=== PATIENT | male | born 1970 | race Caucasian/White ===

== ENCOUNTER → 2016-11-30 | Outpatient (REF) | payer MEDICAID | LOC: M SFHCPLAZ 13:31 | PROVIDERS: ATTEND Physician Assistant | DX: E11.9 Type 2 diabetes mellitus without complications (principal) ==

== ENCOUNTER 2019-03-29 17:02 | Emergency (ER) | payer OTHER, SELFPAY ==
[~2019-03-29] VITALS: Ht 193 cm; Wt 76.8 kg
[~2019-03-29 17:02] MED LIST: METF10004 PO
[2019-03-29 17:41] LABS: HEMATOCRIT 26.6 % (42.0-52.0); HEMOGLOBIN 8.1 g/dl (13.5-17.5); MEAN CORPUSCULAR HEMOGLOBIN 23.4 pg (27.0-33.0); MEAN CORPUSCULAR HGB CONC 30.5 g/dl (32.0-36.5); MEAN CORPUSCULAR VOLUME 76.9 fl (80.0-96.0); PLATELET COUNT, AUTOMATED 157 10^3/uL (150-450); RED BLOOD COUNT 3.46 10^6/uL (4.30-6.10); WHITE BLOOD COUNT 7.1 10^3/uL (4.0-10.0)
[2019-03-29 18:06] LABS: BLOOD UREA NITROGEN 15 MG/DL (7-18); CALCIUM LEVEL 7.6 MG/DL (8.5-10.1); CARBON DIOXIDE LEVEL 27 MEQ/L (21-32); CHLORIDE LEVEL 88 MEQ/L (98-107); GLOMERULAR FILTRATION RATE > 60.0 (>60); GLUCOSE, FASTING 549 MG/DL (70-100); POTASSIUM SERUM 3.9 MEQ/L (3.5-5.1); SODIUM LEVEL 125 MEQ/L (136-145)
[2019-03-29] MEDS ORDERED: NS 1,000 ML IV ONE ×3 (18:15→22:30)
[2019-03-29 18:28] LABS: ATYPICAL LYMPH 1 % (0-5); EOSINOPHILS 1 % (0-5); LYMPHOCYTES 7 % (16-52); MONOCYTES 13 % (0-8); NEUTROPHILS 76 % (35-75)
[2019-03-29] MEDS ORDERED: VANCOMYCIN HCL 1,000 MG, VIAL MATE ADAPTER 1 EACH in D5W 250 ML IV ONE ×2 (18:30→21:45)
[2019-03-29] MEDS ORDERED: HumuLIN R (REGULAR) INSULIN (NovoLIN R) **100U/ML** PER UNIT IV ONE (18:30)
[2019-03-29 18:31] LABS: DOHLE BODIES 1+; HYPOCHROMASIA 1+; PLATELET ESTIMATE NORMAL (NORMAL); TOXIC GRANULATION 1+
[2019-03-29] MEDS ORDERED: MORPHINE 4 MG/ML 1ML VIAL/SYRINGE (J2270) IV ONE (18:45)
[2019-03-29 18:52] LABS: ERYTHROCYTE SEDIMENTATION RATE 110 mm/hr (0-15)
[2019-03-29 18:55] LABS: ALBUMIN 1.2 GM/DL (3.2-5.2); ALT/SGPT 6 U/L (12-78); BILIRUBIN,DIRECT 0.6 MG/DL (0.0-0.2); BILIRUBIN,TOTAL 0.9 MG/DL (0.2-1.0); TOTAL PROTEIN 6.5 GM/DL (6.4-8.2)
--- NOTE | 2019-03-29 20:02 | REPVR ---
EXAM: US Duplex Left Lower Extremity Veins, Limited EXAM DATE/TIME: 03/29/2019 7:32 PM CLINICAL HISTORY: 48 years old, male; Pain; Leg, lower; Left; Additional info: Edema, R/O dvt TECHNIQUE: Imaging protocol: Real-time Duplex ultrasound of the Left Lower Extremity with 2-D thomas scale, color Doppler flow and spectral waveform analysis. Limited exam focused on the left lower extremity veins. COMPARISON: No relevant prior studies available. FINDINGS: Left deep veins: Occluded proximal and mid superficial femoral vein. Remaining veins in the deep system are patent. Left superficial veins: Unremarkable. Saphenofemoral junction is patent without thrombus. Soft tissues: Unremarkable. Other findings: Occluded proximal and mid superficial femoral vein. Remaining veins in the deep system are patent. IMPRESSION: DVT as described above. Electronically signed by: Angel Selby On 03/29/2019 20:02:36 PM
[2019-03-29 20:07] LABS: APPEARANCE, URINE CLEAR (CLEAR); BACTERIA, URINE AUTO NEGATIVE (NEGATIVE); BILIRUBIN, URINE AUTO NEGATIVE (NEGATIVE); BLOOD, URINE BLOOD 2+ (NEGATIVE); COLOR, URINE AMBER (YELLOW); GLUCOSE, URINE (UA) AUTO 3+ mg/dL (NEGATIVE); KETONE, URINE AUTO NEGATIVE (NEGATIVE); LEUKOCYTE ESTERASE, URINE AUTO NEGATIVE (NEGATIVE); MUCUS, URINE SMALL (NEGATIVE); NITRITE, URINE AUTO NEGATIVE (NEGATIVE); PROTEIN, URINE AUTO NEGATIVE (NEGATIVE); RBC, URINE AUTO 14 /HPF (0-3); SPECIFIC GRAVITY URINE AUTO 1.032 (1.002-1.035); SQUAMOUS EPITHELIAL CELL UR AU 0 /HPF (0-6); WBC, URINE AUTO 4 /HPF (0-3)
[2019-03-29] MEDS ORDERED: metroNIDAZOLE 500 MG in APPROPRIATE DILUENT 1 EA IV ONE (20:30)
[2019-03-29] MEDS ORDERED: ERTAPENEM SODIUM 1 GM in NS MINI-BAG PLUS 50 ML IV ONE (20:30)
[2019-03-29] MEDS ORDERED: LevoFLOXacin IV 750 MG in APPROPRIATE DILUENT 1 EA IV ONE (20:30)
[2019-03-29 20:33] LABS: VENOUS HCO3 21.4 MEQ/L (23.0-27.0); VENOUS O2 SATURATION 99.8 % (60.0-80.0); VENOUS PARTIAL PRESSURE CO2 30.8 mmHg (38.0-50.0); VENOUS PARTIAL PRESSURE O2 232.2 mmHg (30.0-50.0); VENOUS STANDARD HCO3 22.8 MEQ/L; VENOUS TOTAL CO2 22.4 MEQ/L (24.0-28.0)
[2019-03-29] MEDS ORDERED: ISOVUE-370 76% 100ML VIAL (Q9967) As Ordered ONE (20:38)
[2019-03-29] MEDS ORDERED: HEPARIN SOD (PORCINE) 5000 UNITS/ML VIAL SC SCH (21:00)
[2019-03-29] MEDS ORDERED: LEVEMIR (INSULIN DETEMIR) 1 UNITS/0.01ML SC SCH (21:00)
[2019-03-29] MEDS ORDERED: CLINDAMYCIN 900 MG in APPROPRIATE DILUENT 1 EA IV ONE (21:15)
[2019-03-29] MEDS ORDERED: VANCOMYCIN HCL 500 MG in D5W MINI-BAG PLUS 100 ML IV ONE (21:45)
[2019-03-29] MEDS ORDERED: GLUCOSE 4 GM CHEW TABLET PO PRN (22:00)
[2019-03-29] MEDS ORDERED: DEXTROSE 50% 50 ML SYRINGE IV PRN (22:00)
[2019-03-29] MEDS ORDERED: GLUCAGON FOR INJ 1 MG VIAL (J1610) SC PRN (22:00)
[2019-03-29] MEDS ORDERED: HumaLOG INSULIN (NovoLOG) PER UNIT SC SCH (22:00)
[2019-03-29] MEDS ORDERED: LR 1,000 ML IV SCH (22:00)
[2019-03-29] MEDS ORDERED: LR 1,000 ML IV ONE (22:00)
--- NOTE | 2019-03-29 22:00 | REPVR ---
EXAM: CT Angiography Chest With Contrast EXAM DATE/TIME: 03/29/2019 8:49 PM CLINICAL HISTORY: 48 years old, male; Signs and symptoms; Other: Dvt; Additional info: Dvt lle, tachycardia TECHNIQUE: Imaging protocol: Axial computed tomographic angiography images of the chest with intravenous contrast using CT angiography protocol. Coronal and sagittal reformatted images were created and reviewed. 3D rendering: MIP reconstructed images were created and reviewed. Radiation optimization: All CT scans at this facility use at least one of these dose optimization techniques: automated exposure control; mA and/or kV adjustment per patient size (includes targeted exams where dose is matched to clinical indication); or iterative reconstruction. Contrast material: ISOVUE 370; Contrast volume: 100 ml; Contrast route: IV; COMPARISON: CT ANGIO CHEST 08/27/2018 11:43 PM FINDINGS: Pulmonary arteries: There are low-density filling defects within right lower lobe and left lower lobe pulmonary arteries consistent with emboli. Aorta: Normal. No aortic aneurysm. No aortic dissection. Lungs: Small patchy consolidation within the peripheral aspect of the posterior left lower lobe, likely small pulmonary infarct. The lungs are otherwise clear. Pleural space: No pleural effusion or pneumothorax. Heart: No CT scan evidence of right heart dysfunction. Lymph nodes: Unremarkable. No enlarged lymph nodes. Bones/joints: Mild degenerative spondylosis and DISH of the thoracic spine. Soft tissues: Unremarkable. IMPRESSION: 1. Bilateral lower lobe pulmonary emboli. 2. Small area of patchy consolidation in the posterior left lower lobe, likely pulmonary infarct. Electronically signed by: Carlo Garcia On 03/29/2019 21:59:32 PM
--- NOTE | 2019-03-29 22:25 | REPVR ---
EXAM: CT Abdomen and Pelvis With Contrast EXAM DATE/TIME: 03/29/2019 8:49 PM CLINICAL HISTORY: 48 years old, male; Signs and symptoms; Other: Anemia, blood; Additional info: Heme pos stool, anemia TECHNIQUE: Imaging protocol: Axial computed tomography images of the abdomen and pelvis with intravenous contrast. Coronal and sagittal reformatted images were created and reviewed. Radiation optimization: All CT scans at this facility use at least one of these dose optimization techniques: automated exposure control; mA and/or kV adjustment per patient size (includes targeted exams where dose is matched to clinical indication); or iterative reconstruction. Contrast material: ISOVUE 370; Contrast volume: 100 ml; Contrast route: IV; COMPARISON: No relevant prior studies available. FINDINGS: Lungs: Bilateral lower lobe pulmonary emboli. Mediastinum: There is circumferential low-density wall thickening of the distal esophagus. Differential diagnosis includes esophagitis, as well as esophageal neoplasm. There is an 8 mm diameter left paraesophageal lymph node on axial image 12 of series 501. ABDOMEN: Liver: Unremarkable. No mass. Gallbladder and bile ducts: Unremarkable. No calcified stones. No ductal dilation. Pancreas: Unremarkable. No ductal dilation. Spleen: Unremarkable. No splenomegaly. Adrenals: Normal. No mass. Kidneys and ureters: Unremarkable. No stones. No hydronephrosis. Stomach and bowel: There is a large fecal load within a moderately distended ascending, transverse, and descending colon. The stomach and small bowel are unremarkable. No bowel obstruction is identified. No mucosal thickening or mass is identified. Appendix: No evidence of appendicitis. PELVIS: Bladder: Unremarkable as visualized. Reproductive: Unremarkable as visualized. ABDOMEN and PELVIS: Intraperitoneal space: Unremarkable. No free air. No significant fluid collection. Bones/joints: Degenerative spondylosis of the lower thoracic and lumbar spine. No bone destruction or suspicious bone lesion. Soft tissues: There is gas within the soft tissues of the posterior left proximal thigh and left buttock tracking within intramuscular tissue. These findings raise the concern for necrotizing fasciitis. Surgical consultation is recommended. Vasculature: Swelling and decreased attenuation within the left femoral and external iliac vein suspicious for deep venous thrombosis. Lymph nodes: There are mildly enlarged left inguinal external iliac chain lymph nodes. IMPRESSION: 1. Findings suspicious for DVT of the left femoral and left external iliac veins. 2. Bilateral pulmonary emboli. 3. Circumferential wall thickening of the distal esophagus. Differential diagnosis includes esophagitis and esophageal neoplasm. 4. Gas tracking within the intramuscular tissues of the posterior left proximal thigh and left buttock suspicious for necrotizing fasciitis. Surgical consultation is recommended. Electronically signed by: Carlo Garcia On 03/29/2019 22:24:47 PM
--- NOTE | 2019-03-29 22:40 | REPVR ---
EXAM: CT Left Lower Extremity Without Contrast, Tibia Fibula EXAM DATE/TIME: 03/29/2019 9:18 PM CLINICAL HISTORY: 48 years old, male; Condition or disease; Other: Wound; Additional info: Without contrast, infection TECHNIQUE: Imaging protocol: CT of the Left lower extremity without contrast was performed. Exam focused on the tibia and fibula. Coronal and sagittal reformatted images were created and reviewed. Radiation optimization: All CT scans at this facility use at least one of these dose optimization techniques: automated exposure control; mA and/or kV adjustment per patient size (includes targeted exams where dose is matched to clinical indication); or iterative reconstruction. COMPARISON: No relevant prior studies available. FINDINGS: Bones/joints: No eagle bone destruction or fracture seen. Small areas of mild periostitis within the proximal and distal tibia may be secondary to infectious periostitis as well as reactive to the adjacent soft tissue inflammatory process. Soft tissues: There is extensive swelling and fluid density reticulation throughout the subcutaneous tissues of the left distal thigh, calf, ankle and hindfoot consistent with cellulitis. There is extensive gas within the soft tissues of the distal thigh, calf, ankle and hindfoot consistent with necrotizing fasciitis. There is a collection of fluid and gas within the deep portion of the calf, anterior to the gastrocnemius muscles. This collection measures approximately 4 cm transverse by 2 cm AP by 14 cm long and is consistent with an abscess. This appears to communicate with soft tissue gas collections within the superficial tissues at the lateral aspect of the lower leg. IMPRESSION: 1. Diffuse cellulitis and findings consistent with diffuse necrotizing fasciitis of the left distal thigh, calf, ankle and hindfoot. 2. Deep space collection of gas and fluid within the posterior calf measuring approximately 14 cm x 4 cm x 1.9 cm deep to the gastrocnemius muscles consistent with abscess. Electronically signed by: Carlo Garcia On 03/29/2019 22:40:12 PM
--- NOTE | 2019-03-29 22:53 | REPVR ---
EXAM: CT Left Lower Extremity Without Contrast, Foot EXAM DATE/TIME: 03/29/2019 9:18 PM CLINICAL HISTORY: 48 years old, male; Condition or disease; Other: Persistent wound; Additional info: Without contrast TECHNIQUE: Imaging protocol: CT of the Left lower extremity without contrast was performed. Exam focused on the foot. Coronal and sagittal reformatted images were created and reviewed. Radiation optimization: All CT scans at this facility use at least one of these dose optimization techniques: automated exposure control; mA and/or kV adjustment per patient size (includes targeted exams where dose is matched to clinical indication); or iterative reconstruction. COMPARISON: CR Foot, complete LEFT 03/29/2019 7:07 PM FINDINGS: Bones/joints: There is erosion and partial destruction of the great toe metatarsal head, great toe proximal phalanx and great toe distal phalanx base consistent with osteomyelitis. There is extensive periostitis throughout the great toe metatarsal. There is erosion of the cuboid and first cuneiform bone, consistent with osteomyelitis. There is gas within the cuneiform bones and cuboid. There is erosion of the anterior process of the calcaneus. There is periostitis of the distal tibia and fibula, which may be secondary to osteomyelitis, as well as reactive to adjacent soft tissue inflammatory process. Soft tissues: There is diffuse swelling and fluid density throughout the foot and ankle consistent with cellulitis. There is extensive soft tissue gas throughout the foot and ankle consistent with necrotizing fasciitis. No drainable collection is identified. IMPRESSION: 1. Findings consistent with extensive cellulitis of the left ankle and foot. 2. Findings consistent with extensive necrotizing fasciitis of the left ankle and foot. 3. Osteomyelitis involving the great toe, cuneiform bones, cuboid, and calcaneus. Electronically signed by: Carlo Garcia On 03/29/2019 22:52:49 PM
[2019-03-29] MEDS ORDERED: HEPARIN DRIP 25,000 UNITS in APPROPRIATE DILUENT 1 EA IV SCH (23:02)
[2019-03-29] MEDS ORDERED: HEPARIN SOD (PORCINE) 5000 UNITS/ML VIAL IV PRN (23:15)
--- NOTE | 2019-03-29 23:30 | CR.PDOC ---
General Date of Consultation: March 29, 2019 Consultation REASON FOR CONSULTATION/CHIEF COMPLAINT: Diabetic foot infection; Necrotizing Fascitis of Whole left leg from foot to the thigh with underlying osteomyelitis of Left Foot, Bilateral PE, Left Leg DVT, Uncontrolled DM without DKA HISTORY OF PRESENT ILLNESS: Mr. Yi is a 48 years old man with DM who has no PCP and doesn't take any meds for DM. Pt is a poor historian and it is not clear how this started but he is presenting to ER with extremely painful left foot that is necrotized in a large area of left foot and spots of necrosis on the leg below knee, with extensive areas of skin peeling; the foot and leg are swollen and red, up to the knee. He is afebrile. BP is soft; he has sinus tachycardia at the rate of 110-120/min. BG >500; no acidosis. Normal anion gap. CT leg: Extensive necrotizing fascitis of the left left from foot to the thigh CTA Chest: Bilateral lower lobe PE US: Left proximal and mid superficial femoral vein DVT with occlusion Pt is allergic to PCN but cannot provide details. ALLERGIES: Please see below. HOME MEDICATIONS: Please see below. PAST MEDICAL HISTORY: Uncontrolled DM, likely insulin-dependent PAST SURGICAL HISTORY: unable to obtain FAMILY HISTORY: UNable to obtain REVIEW OF SYSTEMS: CONSTITUTIONAL: alert; generalized weakness HEENT: normal eyes CARDIOVASCULAR: no chest pain or SOB RESPIRATORY: no cough GENITOURINARY: no dysuria MUSCULOSKELETAL: left foot and leg pain GASTROINTESTINAL: no abd pain SKIN: as described above in HPI PSYCHIATRIC: normal mood PHYSICAL EXAMINATION: VITAL SIGNS: Please see below. GENERAL APPEARANCE: A, Ox3, NAD HEENT: PEERLA RESPIRATORY: CTA b/l CARDIOVASCULAR: Regular rate and rhythm; tachycardia ABDOMEN: Soft , NT EXTREMITIES: as described above in HPI. NEUROLOGICAL: no focal deficits PSYCHIATRIC: normal mood LABORATORY DATA: Please see below. ASSESSMENT/PLAN: 1. Extensive Necrotizing Fascitis of the Left Leg - IV Vanco, Levaquin, Flagyl and Clindamycin; ID consult not available; discussed with [employer] Dr. Palacios. - Fluid Boluses; then maintenance rate; Vasopressor if hypotensive - Blood, Wound C/S has been sent - Pt should be transferred out of ER to higher level of care for surgical care. Podiatry, Vascular and General Surgery have been consulted from ER. 2. B/L PE; Left leg DVT - Heparin drip without bolus in anticipation for surgery for above reason. 3. Uncontrolled DM - Low dose Levemir 10 units now because pt is NPO; SSI Thank you for allowing me to participate in the care of Mr. Yi. Critical Care time: 45 min. Vital Signs/I&O Vital Signs Date Time Temp Pulse Resp B/P (MAP) Pulse Ox O2 Delivery O2 Flow Rate FiO2 03/29/19 21:47 133 98 03/29/19 21:45 96/50 (65) 03/29/19 21:43 20 03/29/19 17:18 98.1 Room Air Laboratory Data Labs 24H Laboratory Tests 2 03/29/19 17:26: Lactic Acid Level 4.1*H 03/29/19 17:27: Nucleated Red Blood Cells % (auto) 0.0, Neutrophils 76H, Band Neutrophils 2, Lymphocytes (Manual) 7L, Monocytes (Manual) 13H, Eosinophils (Manual) 1, Atypical Lymphocytes 1, Toxic Granulation 1+, Dohle Bodies 1+, Platelet Estimate NORMAL, Hypochromasia 1+, Erythrocyte Sedimentation Rate 110H, Anion Gap 10, Glomerular Filtration Rate > 60.0, Calcium Level 7.6L, Aspartate Amino Transf (AST/SGOT) 13, Alanine Aminotransferase (ALT/SGPT) 6L, Alkaline Phosphatase 125H, Total Bilirubin 0.9, Direct Bilirubin 0.6H, C-Reactive Protein, Quantitative 20.50H, Total Protein 6.5, Albumin 1.2L, Albumin/Globulin Ratio 0.23L 03/29/19 19:52: Urine Appearance CLEAR, Urine Color FELISA, Urine pH 6.0, Urine Specific [place] 1.032, Urine Protein NEGATIVE, Urine Glucose (UA) 3+H, Urine Ketones NEGATIVE, Urine Urobilinogen 4.0H, Urine Bilirubin NEGATIVE, Urine Leukocyte Esterase NEGATIVE, Urine Blood 2+H, Urine Nitrite NEGATIVE, Urine WBC (Auto) 4H, Urine RBC (Auto) 14H, Urine Hyaline Casts (Auto) 0, Urine Bacteria (Auto) NEGATIVE, Urine Squamous Epithelial Cells 0, Urine Mucus (Auto) SMALL, Urine Sperm (Auto) , Blood Gas Bicarbonate Standard 22.8, Venous Blood pH 7.460H, Venous Blood Partial Pressure CO2 30.8L, Venous Blood Partial Pressure O2 232.2H, Venous Blood Total Carbon Dioxide 22.4L, Venous Blood HCO3 21.4L, Venous Blood Oxygen Saturation 99.8H, Venous Blood Base Excess -2.0 03/29/19 22:27: Bedside Glucose (Misc Panel) 366H 03/29/19 22:51: CBC/BMP Laboratory Tests 03/29/19 17:27 Red Blood Count 3.46 L, Mean Corpuscular Volume 76.9 L, Mean Corpuscular Hemoglobin 23.4 L, Mean Corpuscular Hemoglobin Concent 30.5 L, Red Cell Distribution Width 15.2 H Microbiology Microbiology 03/29/19 Blood Culture, Received Pending 03/29/19 Blood Culture, Received Pending 03/29/19 Gram Stain, Received Pending 03/29/19 Wound Culture, Received Pending Allergies Coded Allergies: Penicillins (Verified Allergy, Unknown, UNKNOWN CHILDHOOD REACTION, 03/29/19) Home Medications No Active Prescriptions or Reported Meds MARISOL JENSEN MD March 29, 2019 23:30
[2019-03-30] MEDS ORDERED: HEPARIN DRIP 25,000 UNITS in APPROPRIATE DILUENT 1 EA IV SCH ×2 (00:15→00:52)
[2019-03-30] MEDS ORDERED: ACETAMINOPHEN 325 MG TAB PO ONE (01:00)
[2019-03-30] MEDS ORDERED: VANCOMYCIN HCL 1,000 MG, VIAL MATE ADAPTER 1 EACH in D5W 250 ML IV SCH (02:00)
[2019-03-30] MEDS ORDERED: NS 1,000 ML IV ONE (02:15)
[2019-03-30] MEDS ORDERED: NOREPINEPHRINE BITARTRATE 8 MG in D5W 492 ML IV SCH ×2 (02:15→02:23)
[2019-03-30 02:45] VITALS: BP 88/51
[2019-03-30] MEDS ORDERED: metroNIDAZOLE 500 MG in APPROPRIATE DILUENT 1 EA IV SCH (03:00)
[2019-03-30] MEDS ORDERED: CLINDAMYCIN 900 MG in APPROPRIATE DILUENT 1 EA IV SCH (08:00)
--- NOTE | 2019-03-30 09:04 | REP ---
HISTORY: Foot pain with crepitus. Four views were obtained. COMPARISON: There are no priors for comparison. There is extensive soft tissue swelling and subcutaneous emphysema seen throughout the foot. There is lysis of nearly all of the proximal phalanx of the first digit along with lysis of the head of the first metatarsal and components of the base of the distal phalanx of the first digit. Secondary to the extensive subcutaneous emphysema, other small focal areas of bone destruction could be obscured. IMPRESSION: Findings consistent with advanced infection with inflammatory process likely osteomyelitis with or without concomitant secondary soft tissue infection. This needs to be correlated clinically with followup. Electronically Signed by Carlos Andrews DO 03/30/2019 09:13 A
--- NOTE | 2019-03-30 20:41 | IPN ---
DATE: 03/29/2019 TIME: Approximately 9 p.m. CHIEF COMPLAINT: Patient seen for evaluation of an infected left lower extremity with remarkably swollen left foot and leg. Patient states he did not have insurance so had a foot infection for at least 2 weeks. Patient is a poor historian. He states that he presented to the emergency room for difficulty breathing and infection in his foot. He is seen on consultation. PAST MEDICATIONS: Patient has stopped taking all of his medications. ALLERGIES: PENICILLIN PAST MEDICAL HISTORY: Not obtained, poor historian. PAST SURGICAL HISTORY: Patient is a poor historian. PHYSICAL EXAMINATION: Reveals an alert, 48-year-old male, states that he has had an infection for at least 2 weeks on his left foot which has been draining and he has noticed increased swelling of his leg and had difficulty breathing. Evaluation of his foot reveals a draining ulcer in the distal tip of the left big toe draining a purulent material. There is necrosis of the 4th and 5th toe extending on the lateral surface up to the 5th ray. The calf is markedly swollen. Swelling of the posterior calf with crepitation of that area. There are several black necrotic areas on the anterior leg. Due to swelling, difficult to palpate the patient's pedal pulses on the left side. X-rays were reviewed revealing considerable swelling throughout the entire soft tissue margin. There is gas noted on the medial and lateral sides of the patient's leg. The proximal phalanx has considerable osteolysis as well as the entire base of the distal phalanx. Cystic changes are noted of the head of the 1st metatarsal. Lower CT scan reveals gas in the posterior calf measuring 14 cm x 4 cm x 1.9 cm in depth, deep to the gastrocnemius muscle. Patient had an arteriogram CT ordered which reveals pulmonary embolus (PE) of the lower lobes bilateral. ASSESSMENT: Severe infection left lower leg with pulmonary embolus (PE). PLAN: Discussed with the patient this is out of my scope. Patient will probably need extensive surgery, possible below-knee (BK) amputation of the left extremity.
--- NOTE | 2019-03-30 21:24 | ECGEPIP ---
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 Order Number: [id number] Reading MD: Ayesha Mancia Measurements Intervals [place] Rate: 118 P: 47 TX: 154 QRS: 8 QRSD: 100 T: 72 QT: 290 QTc: 406 Interpretive Statements SINUS TACHYCARDIA POSSIBLE LEFT ATRIAL ENLARGEMENT NONSPECIFIC ST & T-WAVE ABNORMALITY ABNORMAL RHYTHM ECG BASELINE ARTIFACT LIMITS INTERPRETATION INCREASED RATE 08/27/18 Electronically Signed On 03-30-2019 21:24:23 EDT by Ayesha Mancia
[2019-03-30] MEDS ORDERED: LevoFLOXacin IV 750 MG in APPROPRIATE DILUENT 1 EA IV SCH (22:00)
== END 2019-03-30 02:50 | disposition short-term general hospital (02) ==
LOC: MERGE 17:02 → M ED 17:02 → EDBD 17:02 → M ED INP 21:43 → UNDOADMIN 21:43 → M ED 03-30 02:50
DX: L03.116 Cellulitis of left lower limb (principal); L02.416 Cutaneous abscess of left lower limb; M72.6 Necrotizing fasciitis; I26.99 Other pulmonary embolism without acute cor pulmonale; I82.412 Acute embolism and thrombosis of left femoral vein; M86.172 Other acute osteomyelitis, left ankle and foot; E11.65 Type 2 diabetes mellitus with hyperglycemia; E11.622 Type 2 diabetes mellitus with other skin ulcer; L97.823 Non-pressure chronic ulcer of other part of left lower leg with necrosis of muscle; R00.0 Tachycardia, unspecified; J45.909 Unspecified asthma, uncomplicated; Z88.0 Allergy status to penicillin
CPT/HCPCS: 36415; 71275; 73630; 73700; 74177; 80048; 80076; 81001; 82803; 83605; 85025; 85652; 85730; 86140; 87040; 87070; 87077; 87186; 87205; 93005; 93971; 96365; 96366; 96368; 96372; 96375; 99285; J1956; J2270; J3370; Q9967

== ENCOUNTER 2019-04-11 11:22 | Inpatient (IN) | payer BC, OTHER ==
[~2019-04-11] VITALS: Ht 193 cm; Wt 88.5 kg
[2019-04-14 15:50] VITALS: BP 130/75
[2019-04-14] MEDS ORDERED: PANT40TA3 PO (15:58)
[2019-04-14] MEDS ORDERED: ZOSY3INJ2 IV (15:58)
[2019-04-14] MEDS ORDERED: METO25TA4 PO (15:58)
[2019-04-14] MEDS ORDERED: SIME40TA PO (15:58)
[2019-04-14] MEDS ORDERED: LANTINJ4 SC (15:58)
[2019-04-14] MEDS ORDERED: ELIQ5TAB PO (15:58)
[2019-04-14] MEDS ORDERED: TRAM50TA2 PO (15:58)
[2019-04-14] MEDS ORDERED: FERR1TAB8 PO (15:58)
[2019-04-14] MEDS ORDERED: SENN8.6T28 PO (15:58)
[2019-04-14] MEDS ORDERED: APAP325T4 PO (15:58)
[2019-04-14] MEDS ORDERED: INSUHUMDS SC (15:58)
[2019-04-14] MEDS ORDERED: GABA-843 PO (15:58)
[2019-04-14] MEDS ORDERED: MAALOX 30 ML SUSP *UDC PO PRN (16:30)
[2019-04-14] MEDS ORDERED: ONDANSETRON 4MG/2ML VIAL (J2405) IM PRN (16:30)
[2019-04-14] MEDS ORDERED: BISACODYL 10 MG SUPP PR PRN (16:30)
[2019-04-14] MEDS ORDERED: MOM 30ML SUSPENSION UDC PO PRN (16:30)
[2019-04-14] MEDS ORDERED: GLUCAGON FOR INJ 1 MG VIAL (J1610) SC PRN (16:45)
[2019-04-14] MEDS ORDERED: DEXTROSE 50% 50 ML SYRINGE IV PRN (16:45)
[2019-04-14] MEDS ORDERED: SIMETHICONE 80 MG CHEW TAB PO PRN (16:45)
[2019-04-14] MEDS ORDERED: GLUCOSE 4 GM CHEW TABLET PO PRN (16:45)
[2019-04-14] MEDS: HumaLOG INSULIN (NovoLOG) PER UNIT SC SCH ×2 (17:28→20:52)
[2019-04-14] MEDS: SODIUM CHLORIDE 0.9% INJ 10 ML SYR IV SCH (17:54)
[2019-04-14] MEDS: PIPERACILLIN/TAZOBACTAM SOD 3.375 GM in D5W MINI-BAG PLUS 50 ML IV SCH (17:55)
[2019-04-14] MEDS: SODIUM CHLORIDE 0.9% INJ 10 ML SYR IV PRN (17:58)
--- NOTE | 2019-04-14 18:26 | CR.PDOC ---
General Date of Consultation: Apr 14, 2019 Referring Provider: ALEKSEY MUÑOZ MD Attending Physician: SHERICE CORCORAN MD Consultation REASON FOR CONSULTATION/CHIEF COMPLAINT: Medical Management HISTORY OF PRESENT ILLNESS: Patient is a 48-year-old male, past medical history significant for diabetes mellitus, poorly controlled, recent left AKA transferred back from [facility] to this facility after treatment of sepsis, necrotizing fasciitis, DVT in left common femoral vein, bilateral lower lobe PE and anemia. On presentation to that facility was septic from necrotizing fascitis . CT of his left lower extremity should necrotizing fasciitis to left eye, ankle, health, hindfoot with deep space collection of gas and fluid. Review of medical records state. He was initially started on vancomycin, Zosyn, clindamycin. Vascular surgery was consulted and performed a BKA. Once patient was stabilized, he proceeded with an AKA. Wound cultures were positive for Enterococcus faecalis and avium. Antibiotics were deescalated and currently continued only on Zosyn to complete therapy in 4 days for a total of 2 weeks. On evaluation of patient he has no complaints. He denies chest pain, SOB, weakness, chills fever or any other concerns ALLERGIES: Please see below. HOME MEDICATIONS: Please see below. PAST MEDICAL HISTORY: 1. Diabetes Mellitus 2. Anemia PAST SURGICAL HISTORY: 1. Left BKA 2. Left AKA FAMILY HISTORY: SOCIAL HISTORY: Employment:Disabled Tobacco use:denies ETOH: Denies Illicit drug use: denies IV drug use: Denies REVIEW OF SYSTEMS:A pertinent 10 point review of systems was completed, negative except as stated in the HPI PHYSICAL EXAMINATION: GENERAL: NAD SKIN : dry HEENT: Atraumatic, normocephalic, PERRL, moist mucous membrane CARDIOVASCULAR: Regular rate and rhythm, S1S2, no JVD, cold right foot, pulses not palpable RESP: CTAB, no accessory muscle use noted ABDOMEN: BS+ non distended non tender MS: left AKA NEURO: Alert and oriented x 3, CN2-12 grossly intact PSYCH: flat affect. LABORATORY DATA: Please see below. ASSESSMENT/PLAN: Necrotizing Fascitis -involving left lower extremity -S/P left BKA, then left AKA -S/P PICC on Zosyn till 04/16/19 -continue to monitor for signs and symptoms of infectious process. Diabetes mellitus -Medical non adherence -patient states he was without insurance for over a year and in that time was not treating/monitoring diabetes -finger stick checks prior to meals and at bedtime -continue Lantus 62 units at bedtime -diabetic diet -check HgbA1c Anemia -S/P transfusion multiple units PRBC at other facility -monitor hemoglobin here -stool for occult blood was also positive at that facility with consideration for GI consult if Hgb continued to drop -Continued on Eliquis for recent PE/DVT Left common Femoral DVT/PE -provoked likely by infection and possible PAD/PVD -S/P IVC placement -continue Eliquis Vital Signs/I&O Vital Signs Date Time Temp Pulse Resp B/P (MAP) Pulse Ox O2 Delivery O2 Flow Rate FiO2 04/14/19 15:50 98.7 119 18 130/75 (93) Laboratory Data Labs 24H Laboratory Tests 2 04/14/19 17:06: Bedside Glucose (Misc Panel) 89 Allergies Coded Allergies: Penicillins (Verified Allergy, Mild, UNKNOWN CHILDHOOD REACTION, 04/14/19) HAS BEEN RECEIVING ZOSYN FOR AN EXTENDED INTERVAL WITH NO ISSUES; THEREFORE, NO LONGER A PCN ALLERGY CONCERN 04/14/19 Home Medications Scheduled Acetaminophen (Acetaminophen) 325 Mg Tablet, 975 MG PO TID, (Reported) Apixaban (Eliquis) 5 Mg Tablet, 5 MG PO BID, (Reported) Ferrous Sulfate (Ferrous Sulfate) 325 Mg Tablet, 325 MG PO DAILY, (Reported) Gabapentin (Gabapentin) 300 Mg Capsule, 300 MG PO TID, (Reported) Insulin Glargine,Hum.rec.anlog (Lantus Solostar) 100 Unit/1 Ml Insuln.pen, 62 UNITS SC QHS, (Reported) Insulin Human Lispro (Humalog) 100 Unit/1 Ml Vial, 1 DOSE SC AC, (Reported) PER SLIDING SCALE Metoprolol Tartrate (Metoprolol Tartrate) 25 Mg Tablet, 12.5 MG PO BID, (Reported) Pantoprazole Sodium (Pantoprazole Sodium) 40 Mg Tablet.dr, 40 MG PO DAILY, (Reported) Piperacillin Sodium/Tazobactam (Zosyn 3.375 Gram Vial) 3.375 Gm Vial, 3.375 GM IV Q8H, (Reported) END DATE 04/18/19 Scheduled PRN Sennosides (Senna) 8.6 Mg Tablet, 2 TAB PO QHS PRN for CONSTIPATION, (Reported) Simethicone (Simethicone) 80 Mg Tab.chew, 80 MG PO Q6H PRN for GAS PAIN, (Reported) Tramadol HCl (Tramadol HCl) 50 Mg Tablet, 50 MG PO Q6H PRN for PAIN, (Reported) HEYDI SUE CLOTH BEAMER Apr 14, 2019 18:26
[2019-04-14 18:27] LABS: BASO # 0.1 10^3/uL (0.0-0.2); BASO % 0.8 % (0.0-1.0); EOS # 0.1 10^3/uL (0.0-0.50); EOS % 2.2 % (0.0-3.0); HEMATOCRIT 26.8 % (42.0-52.0); HEMOGLOBIN 8.6 g/dl (13.5-17.5); LYMPH # 1.2 10^3/uL (1.5-4.5); MEAN CORPUSCULAR HEMOGLOBIN 28.9 pg (27.0-33.0); MEAN CORPUSCULAR HGB CONC 32.1 g/dl (32.0-36.5); MEAN CORPUSCULAR VOLUME 89.9 fl (80.0-96.0); MONO # 0.5 10^3/uL (0.0-0.8); MONO % 7.8 % (0.0-5.0); NEUTROPHILS # 4.1 10^3/uL (1.8-7.7); NEUTROPHILS % 68.9 % (36.0-66.0); PLATELET COUNT, AUTOMATED 383 10^3/uL (150-450); RED BLOOD COUNT 2.98 10^6/uL (4.30-6.10); WHITE BLOOD COUNT 5.9 10^3/uL (4.0-10.0)
[2019-04-14 18:58] LABS: HEMOGLOBIN A1c 7.9 %
[2019-04-14 19:11] LABS: ALBUMIN 1.9 GM/DL (3.2-5.2); ALT/SGPT 22 U/L (12-78); BILIRUBIN,TOTAL 0.2 MG/DL (0.2-1.0); BLOOD UREA NITROGEN 22 MG/DL (7-18); CALCIUM LEVEL 8.4 MG/DL (8.5-10.1); CARBON DIOXIDE LEVEL 31 MEQ/L (21-32); CHLORIDE LEVEL 99 MEQ/L (98-107); CREATININE FOR GFR 0.61 MG/DL (0.70-1.30); GLOMERULAR FILTRATION RATE > 60.0 (>60); GLUCOSE, FASTING 98 MG/DL (70-100); POTASSIUM SERUM 4.7 MEQ/L (3.5-5.1); SODIUM LEVEL 136 MEQ/L (136-145); TOTAL PROTEIN 7.2 GM/DL (6.4-8.2)
[2019-04-14 20:00] VITALS: BP 124/73
[2019-04-14] MEDS: APIXABAN 5 MG TAB (ELIQUIS) PO SCH (20:51)
[2019-04-14] MEDS: GABAPENTIN 300 MG CAP PO SCH (20:51)
[2019-04-14] MEDS: METOPROLOL TART 12.5 MG PER 1/2 TAB PO SCH (20:51)
[2019-04-14] MEDS: ACETAMINOPHEN 500 MG TAB PO SCH (20:51)
[2019-04-14] MEDS: DOCUSATE SODIUM 100 MG CAP PO SCH (20:51)
[2019-04-14] MEDS: LEVEMIR (INSULIN DETEMIR) 1 UNITS/0.01ML SC SCH (20:52)
[2019-04-14] MEDS: SENNA 8.6 MG TAB (SENOKOT) PO SCH (21:00)
[2019-04-14] MEDS ORDERED: LEVEMIR (INSULIN DETEMIR) 1 UNITS/0.01ML SC SCH (21:00)
[2019-04-14] MEDS: traMADol 50 MG TAB PO PRN (21:52)
[2019-04-15] MEDS: PIPERACILLIN/TAZOBACTAM SOD 3.375 GM in D5W MINI-BAG PLUS 50 ML IV SCH ×4 (00:42→17:25)
[2019-04-15] MEDS: SODIUM CHLORIDE 0.9% INJ 10 ML SYR IV SCH ×2 (05:36→17:26)
[2019-04-15 06:00] VITALS: BP 122/72
[2019-04-15 06:04] LABS: BASO # 0.1 10^3/uL (0.0-0.2); BASO % 1.2 % (0.0-1.0); EOS # 0.1 10^3/uL (0.0-0.50); EOS % 2.3 % (0.0-3.0); HEMATOCRIT 28.5 % (42.0-52.0); HEMOGLOBIN 8.9 g/dl (13.5-17.5); LYMPH # 1.2 10^3/uL (1.5-4.5); LYMPH % 25.8 % (24.0-44.0); MEAN CORPUSCULAR HEMOGLOBIN 28.4 pg (27.0-33.0); MEAN CORPUSCULAR HGB CONC 31.2 g/dl (32.0-36.5); MEAN CORPUSCULAR VOLUME 91.1 fl (80.0-96.0); MONO # 0.5 10^3/uL (0.0-0.8); NEUTROPHILS # 2.9 10^3/uL (1.8-7.7); NEUTROPHILS % 60.3 % (36.0-66.0); PLATELET COUNT, AUTOMATED 427 10^3/uL (150-450); RED BLOOD COUNT 3.13 10^6/uL (4.30-6.10); WHITE BLOOD COUNT 4.8 10^3/uL (4.0-10.0)
[2019-04-15 06:34] LABS: ALT/SGPT 12 U/L (12-78); BILIRUBIN,TOTAL 0.3 MG/DL (0.2-1.0); BLOOD UREA NITROGEN 22 MG/DL (7-18); CALCIUM LEVEL 9.1 MG/DL (8.5-10.1); CARBON DIOXIDE LEVEL 30 MEQ/L (21-32); CHLORIDE LEVEL 102 MEQ/L (98-107); CREATININE FOR GFR 0.64 MG/DL (0.70-1.30); GLOMERULAR FILTRATION RATE > 60.0 (>60); GLUCOSE, FASTING 61 MG/DL (70-100); POTASSIUM SERUM 4.3 MEQ/L (3.5-5.1); SODIUM LEVEL 138 MEQ/L (136-145); TOTAL PROTEIN 8.2 GM/DL (6.4-8.2)
[2019-04-15] MEDS: HumaLOG INSULIN (NovoLOG) PER UNIT SC SCH ×4 (07:07→20:26)
[2019-04-15] MEDS: DOCUSATE SODIUM 100 MG CAP PO SCH ×2 (08:30→20:25)
[2019-04-15] MEDS: METOPROLOL TART 12.5 MG PER 1/2 TAB PO SCH ×2 (08:31→20:23)
[2019-04-15] MEDS: FERROUS GLUCONATE 324 MG TAB PO SCH (08:32)
[2019-04-15] MEDS: GABAPENTIN 300 MG CAP PO SCH ×3 (08:32→20:24)
[2019-04-15] MEDS: ACETAMINOPHEN 500 MG TAB PO SCH ×3 (08:32→20:24)
[2019-04-15] MEDS: APIXABAN 5 MG TAB (ELIQUIS) PO SCH ×2 (08:32→20:25)
[2019-04-15] MEDS ORDERED: PANTOPRAZOLE 40MG TAB (PROTONIX) PO SCH (09:00)
[2019-04-15] MEDS: traMADol 50 MG TAB PO PRN (09:40)
--- NOTE | 2019-04-15 10:18 | HPEPDOC ---
[employer] Note DATE OF ADMISSION: Apr 14, 2019 at 15:25 SOURCE OF ADMISSION INFORMATION:patient, [facility] and [facility] records CHIEF COMPLAINT: left AKA HISTORY OF PRESENT ILLNESS: 48M pmh poorly controlled DM who presented to [facility] ED on 03/29/19 complaining of a left foot ulcer and swollen leg with shortness of breath. Dopplers revealed left lower extremity DVTs including a femoral DVT and CT angio chest was positive for Bilateral lower lobe pulmonary emboliSmall area of patchy consolidation in the posterior left lower lobe, likely pulmonary infarct. CT abdomen/pelvis showed, Mediastinum: There is circumferential low-density wall thickening of the distal esophagus. Differential diagnosis includes esophagitis, as well as esophageal neoplasm. There was concern on exam for necrotizing fasciitis for which CT showed, extensive cellulitis of the left ankle and footextensive necrotizing fasciitis of the left ankle and footOsteomyelitis involving the great toe, c uneiform bones, cuboid, and calcaneus. He was started on IV antibiotics, a heparin drip, and transferred to [facility] where he was admitted under vascular surgery. He underwent a BKA on 03/30/19 followed by an AKA on 04/02/19 complicated by significant post-op anemia requiring multiple blood transfusions. He also had poorly controlled diabetes and found to have appositive stool occult blood. An IVC filter was placed 04/01/19 and he was started on Eliquis. He had persistent tachycardia thought to be due to his anemia and PE and was maintained on metoprolol. He also had significant abdominal swelling, but was able to pass flatus and stool. He was evaluated by therapy, found to have significant gait and ADL impairments and deemed medically appropriate for discharge to ARU on 04/14/19. REVIEW OF SYSTEMS: The following is a completed review of systems and has been reviewed. Review of systems otherwise unremarkable. PAIN: Patient self reports left residual and phantom limb pain EYES: poor vision EARS, NOSE, & THROAT:denies throat pain or dysphagia CARDIOVASCULAR: denies chest pain or palpitations PULMONARY: Negative. Denies shortness of breath GASTROINTESTINAL: +abdominal distension, denies constipation or diarrhea GENITOURINARY: Negative for dysuria MUSCULOSKELETAL: left AKA NEUROLOGICAL: +peripheral neuropathy HEMATOLOGICAL: +anemia SKIN: per [facility] records stage 3 sacral ulcer, left AKA incision PSYCHIATRIC: +schizophrenia All other review of systems found to be negative. PAST MEDICAL HISTORY: as per HPI PAST SURGICAL HISTORY: as per HPI ALLERGIES: Please see below. MEDICATIONS: Please see below. SOCIAL HISTORY: lives with brother, disabled, denies ETOH, smoking or illicit drugs DIET:diabetic PHYSICAL EXAMINATION: VITAL SIGNS: Please see below. GENERAL: Pleasant and cooperative. No acute distress. +glasses HEENT: PERRL. Extraocular movements intact. Clear conjunctiva CARDIOVASCULAR: Regular rate and rhythm. No murmurs, rubs, or gallops LUNGS: Clear to auscultation bilaterally. No wheezes. No rhonchi ABDOMEN: Soft, nontender, mildly-distended. hyperractive bowel sounds, no guarding NEUROLOGICAL: Alert and oriented times three. Cranial nerves II through XII grossly intact. Sensation grossly diminished to light touch in right foot and ankle EXTREMITIES: 5\5 strength bilateral upper extremities.5-\5 strength right hip flexor, knee extension, and knee flexion, 1/5 ankle DF and EHL left hip flexion 5-/5 SKIN: left AKA sutures c/d/i, sacral region and right buttock what appears to be a healed stage 2 IMAGING: Imaging documentation personally reviewed by record FUNCTIONAL STATUS: Premorbid: Independent with all activities of daily life with some help from his brother as well as mobility On Admission: requiring min assist for functional transfers, toileting, dressing, unable to ambulate GOALS: Mod-I from wheelchair level for all functional transfers, dressing, bathing, toileting, grooming, medical optimization, assess for DMEs, caregiver training, shoulder protection, contracture prevention ASSESSMENT:48-year-old M with past medical history of poorly controlled DM who presents status post left AKA for necrotizing fasciitis of the LLE with right sided foot drop PLAN: 1. Rehab: PT, OT, assess for DME, patient encouraged to have ramp built for mobility 2. Neuro: severe diabetic neuropathy resulting in poor wound healing and right foot drop 3. Cardiac: tachycardia likely in the setting of CAD given longstanding hx of poorly controlled DM- c/u metoprolol and transfuse prn, medicine consulted to follow 4. Resp: +bilateral PE diagnosed 03/29/19, on eliquis 5mg BID (known positive FOBT from [facility]), IVC filter placed 04/01/19 -encourage incentive spirometry 5. Endo: poorly controlled DM- c/u insulin coverage with ISS-will refer to outpatient Endocrinology 6. Vascular; s/p LLE necrotizing fasciitis requiring BKA followed by AKA- will need to f/u with vascular as outpatient 7. ID: c/u IV Zosyn per recs until 04/18/19-will order ID consult 8. Skin: change left limb dressing BID, monitor for infection, apply Zinc to sacrum BID 9. Pain: c/u tylenol, tramadol, and gabapentin 10. GI ppx: Protonix BID while on Eliquis with known GI bleed, Simethicone for gas 11. : monitor PVRs 12. Dispo: TBD POST ADMISSION PHYSICIAN EVALUATION: Medical and functional status: Description of medical status, medical ass essment: As above. Rehabilitation diagnosis and current and prior cold morbid medical conditions as above. Risk of complications and plans to mitigate them as above. Description of functional status current status is as above. Prior status as above. Status compared to preadmission: There are no clinically significant differences between the patient's current status and the information described on the preadmission screening document. Treatment plan anticipated: Treatment plan is as described above. Required disciplines including physical therapy, occupational therapy, others as noted above. Intensity of services: 3 hours a day, 6 days a week. Special considerations: There are no specific special or safety considerations that would likely preclude immediate implementation of an intensive r ehabilitation program or subsequently influence the plan of care ATTESTATION: Considering all the information above, it is my best judgment that this patient requires intensive rehabilitation therapy as described above and an inpatient hospital environment due to the complexity of nursing, medical, and rehabilitation needs required by the patient. Furthermore, this patient can reasonably be expected to participate in an benefit from an inpatient rehabilitation stay with an interdisciplinary team approach to the delivery of rehabilitation care under the direction and supervision of rehabilitation physician. PROGNOSIS: Excellent ESTIMATED LENGTH OF STAY:16-18 days. PROJECTED DISCHARGE DESTINATION: Home with family support and any durable medical equipment required to increase functional safety and mobility TIME SPENT COUNSELING AND COORDINATING INITIAL CARE: Greater than 70 minutes. Vital Signs Vital Sign - Last 24 Hours 04/14/19 04/14/19 04/14/19 04/14/19 15:50 20:00 20:51 21:52 Temp 98.7 98.9 Pulse 119 103 103 Resp 18 18 18 B/P (MAP) 130/75 (93) 124/73 (90) 124/73 04/14/19 04/15/19 04/15/19 04/15/19 22:22 06:00 08:31 09:40 Temp 98.1 Pulse 104 104 Resp 18 18 18 B/P (MAP) 122/72 (89) 122/72 Pulse Ox 99 Laboratory Data CBC/BMP Laboratory Tests 04/14/19 18:11 Red Blood Count 2.98 L, Mean Corpuscular Volume 89.9, Mean Corpuscular Hemoglobin 28.9, Mean Corpuscular Hemoglobin Concent 32.1, Red Cell Distribution Width 19.0 H, Neutrophils (%) (Auto) 68.9 H, Lymphocytes (%) (Auto) 20.0 L, Monocytes (%) (Auto) 7.8 H, Eosinophils (%) (Auto) 2.2, Basophils (%) (Auto) 0. 8, Neutrophils # (Auto) 4.1, Lymphocytes # (Auto) 1.2 L, Monocytes # (Auto) 0.5, Eosinophils # (Auto) 0.1, Basophils # (Auto) 0.1, Calcium Level 8.4 L, Aspartate Amino Transf (AST/SGOT) 17, Alanine Aminotransferase (ALT/SGPT) 22, Alkaline Phosphatase 116, Total Bilirubin 0.2, Total Protein 7.2, Albumin 1.9 L 04/15/19 05:52 Red Blood Count 3.13 L, Mean Corpuscular Volume 91.1, Mean Corpuscular Hemoglobin 28.4, Mean Corpuscular Hemoglobin Concent 31.2 L, Red Cell Distribution Width 19.0 H, Neutrophils (%) (Auto) 60.3, Lymphocytes (%) (Auto) 25.8, Monocytes (%) (Auto) 10.0 H, Eosinophils (%) (Auto) 2.3, Basophils (%) (Auto) 1.2 H, Neutrophils # (Auto) 2.9, Lymphocytes # (Auto) 1.2 L, Monocytes # (Auto) 0.5, Eosinophils # (Auto) 0.1, Basophils # (Auto) 0.1, Calcium Level 9.1, Aspartate Amino Transf (AST/SGOT) 17, Alanine Aminotransferase (ALT/SGPT) 12, Alkaline Phosphatase 118 H, Total Bilirubin 0.3, Total Protein 8.2, Albumin 2.0 L Labs 24H Laboratory Tests 2 04/14/19 17:06: Bedside Glucose (Misc Panel) 89 04/14/19 18:11: Immature Granulocyte % (Auto) 0.3, White Blood Count 5.9, Red Blood Count 2.98L, Hemoglobin 8.6L, Hematocrit 26.8L, Mean Corpuscular Volume 89.9, Mean Corpuscular Hemoglobin 28.9, Mean Corpuscular Hemoglobin Concent 32.1, Red Cell Distribution Width 19.0H, Platelet Count 383, Neutrophils (%) (Auto) 68.9H, Lymphocytes (%) (Auto) 20.0L, Monocytes (%) (Auto) 7.8H, Eosinophils (%) (Auto) 2.2, Basophils (%) (Auto) 0.8, Neutrophils # (Auto) 4.1, Lymphocytes # (Auto) 1.2L, Monocytes # (Auto) 0.5, Eosinophils # (Auto) 0.1, Basophils # (Auto) 0.1, Nucleated Red Blood Cells % (auto) 0.0, Anion Gap 6L, Glomerular Filtration Rate > 60.0, Estimated Mean Plasma Glucose 180H, Hemoglobin A1c 7.9, Blood Urea Nitrogen 22H, Creatinine 0.61L, Sodium Level 136, Potassium Level 4.7, Chloride Level 99, Carbon Dioxide Level 31, Calcium Level 8.4L, Aspartate Amino Transf (AST/SGOT) 17, Alanine Aminotransferase (ALT/SGPT) 22, Alkaline Phosphatase 116, Total Bilirubin 0.2, Total Protein 7.2, Albumin 1.9L, Albumin/Globulin Ratio 0.36L 04/14/19 20:28: Bedside Glucose (Misc Panel) 139H 04/15/19 05:52: Immature Granulocyte % (Auto) 0.4, White Blood Count 4.8, Red Blood Count 3.13L, Hemoglobin 8.9L, Hematocrit 28.5L, Mean Corpuscular Volume 91.1, Mean Norberto uscular Hemoglobin 28.4, Mean Corpuscular Hemoglobin Concent 31.2L, Red Cell Distribution Width 19.0H, Platelet Count 427, Neutrophils (%) (Auto) 60.3, Lymphocytes (%) (Auto) 25.8, Monocytes (%) (Auto) 10.0H, Eosinophils (%) (Auto) 2.3, Basophils (%) (Auto) 1.2H, Neutrophils # (Auto) 2.9, Lymphocytes # (Auto) 1.2L, Monocytes # (Auto) 0.5, Eosinophils # (Auto) 0.1, Basophils # (Auto) 0.1, Nucleated Red Blood Cells % (auto) 0.0, Anion Gap 6L, Glomerular Filtration Rate > 60.0, Blood Urea Nitrogen 22H, Creatinine 0.64L, Sodium Level 138, Potassium Level 4.3, Chloride Level 102, Carbon Dioxide Level 30, Calcium Level 9.1, Aspartate Amino Transf (AST/SGOT) 17, Alanine Aminotransferase (ALT/SGPT) 12, Alkaline Phosphatase 118H, Total Bilirubin 0.3, Total Protein 8.2, Albumin 2.0L, Albumin/Globulin Ratio 0.32L FSBS Laboratory Tests Test 04/14/19 17:06 04/14/19 20:28 Range/Units Bedside Glucose (Misc Panel) 89 139 70-105 MG/DL Microbiology Microbiology 04/14/19 Stool Occult Blood (EMILIE) - Final, Complete Home Medications Scheduled Acetaminophen (Acetaminophen) 325 Mg Tablet, 975 MG PO TID, (Reported) Apixaban (Eliquis) 5 Mg Tablet, 5 MG PO BID, (Reported) Ferrous Sulfate (Ferrous Sulfate) 325 Mg Tablet, 325 MG PO DAILY, (Reported) Gabapentin (Gabapentin) 300 Mg Capsule, 300 MG PO TID, (Reported) Insulin Glargine,Hum.rec.anlog (Lantus Solostar) 100 Unit/1 Ml Insuln.pen, 62 UNITS SC QHS, (Reported) Insulin Human Lispro (Humalog) 100 Unit/1 Ml Vial, 1 DOSE SC AC, (Reported) PER SLIDING SCALE Metoprolol Tartrate (Metoprolol Tartrate) 25 Mg Tablet, 12.5 MG PO BID, (Re ported) Pantoprazole Sodium (Pantoprazole Sodium) 40 Mg Tablet.dr, 40 MG PO DAILY, (Reported) Piperacillin Sodium/Tazobactam (Zosyn 3.375 Gram Vial) 3.375 Gm Vial, 3.375 GM IV Q8H, (Reported) END DATE 04/18/19 Scheduled PRN Sennosides (Senna) 8.6 Mg Tablet, 2 TAB PO QHS PRN for CONSTIPATION, (Reported) Simethicone (Simethicone) 80 Mg Tab.chew, 80 MG PO Q6H PRN for GAS PAIN, (Reported) Tramadol HCl (Tramadol HCl) 50 Mg Tablet, 50 MG PO Q6H PRN for PAIN, (Reported) Allergies Coded Allergies: Penicillins (Verified Allergy, Mild, UNKNOWN CHILDHOOD REACTION, 04/14/19) HAS BEEN RECEIVING ZOSYN FOR AN EXTENDED INTERVAL WITH NO ISSUES; THEREFORE, NO LONGER A PCN ALLERGY CONCERN 04/14/19 A-FIB/CHADSVASC A-FIB History Current/History of A-Fib/PAF?: No ALEKSEY MUÑOZ MD Apr 15, 2019 10:18
[2019-04-15] MEDS: SODIUM CHLORIDE 0.9% INJ 10 ML SYR IV PRN (12:17)
[2019-04-15 14:00] VITALS: BP 111/64
[2019-04-15] MEDS ORDERED: METOPROLOL TART 25 MG TABLET PO SCH (14:00)
[2019-04-15] MEDS ORDERED: ACETAMINOPHEN TAB 650MG DOSE (2X325MG) PO ONE (15:30)
[2019-04-15] MEDS ORDERED: diphenhydrAMINE 25 MG CAP PO ONE (15:30)
--- NOTE | 2019-04-15 18:17 | IPNPDOC ---
Subjective Date Seen The patient was seen on 04/15/19. Subjective Chief Complaint/HPI 48-year-old male admitted to this facility status post left AKA due to necrotizing fasciitis Events since last encounter Patient reports he has had a hard time with physical and occupational therapy today. Feels very tired, denies chills, fever, chest pain, shortness of breath Objective Physical Examination General Exam: Positive: Alert, Cooperative, No Acute Distress Eye Exam: Positive: PERRLA, Conjunctiva & lids normal, EOMI ENT Exam: Positive: Atraumatic, Mucous membr. moist/pink, Tongue Midline Neck Exam: Positive: Supple; Negative: JVD, thyromegaly Chest Exam: Positive: Clear to auscultation, Normal air movement Heart Exam: Positive: Regular Rhythm Abdomen Exam: Positive: Normal bowel sounds, Soft; Negative: Tenderness Extremity Exam: Negative: Clubbing, Cyanosis, Edema Skin Exam: Positive: Nl turgor and temperature, Other skin issue (left AKA dressing dry and intact) Neuro Exam: Positive: Normal Speech, Cranial Nerves 3-12 NL Psych Exam: Positive: Mood NL, Oriented x 3 Assessment /Plan Assessment Necrotizing Fascitis -S/P left BKA, then left AKA -S/P PICC for administration of Zosyn till 04/16/19 -continue to monitor for signs and symptoms of infectious process. Diabetes mellitus -Hemoglobin A1c 7.9 -Continue finger stick checks prior to meals and at bedtime -continue Lantus 62 units at bedtime -diabetic diet Anemia -S/P transfusion multiple units PRBC at other facility -Hemoglobin currently stable -stool for occult blood was also positive at another facility -Continued on Eliquis for recent PE/DVT Left common Femoral DVT/PE -provoked likely by infection and possible PAD/PVD -S/P IVC placement -continue Eliquis Plan/VTE VTE Prophylaxis Ordered?: Yes VS, I&O, 24H, Fishbone Vital Signs/I&O Vital Signs Date Time Temp Pulse Resp B/P (MAP) Pulse Ox O2 Delivery O2 Flow Rate FiO2 04/15/19 14:00 99.4 107 19 111/64 (80) 97 I&O- Last 24 Hours up to 6 AM 04/15/19 06:00 Intake Total 1140 ml Output Total 1300 ml Balance -160 ml Laboratory Data 24H LABS Laboratory Tests 2 04/14/19 18:11: Immature Granulocyte % (Auto) 0.3, White Blood Count 5.9, Red Blood Count 2.98L, Hemoglobin 8.6L, Hematocrit 26.8L, Mean Corpuscular Volume 89.9, Mean Corpuscular Hemoglobin 28.9, Mean Corpuscular Hemoglobin Concent 32.1, Red Cell Distribution Width 19.0H, Platelet Count 383, Neutrophils (%) (Auto) 68.9H, Lymphocytes (%) (Auto) 20.0L, Monocytes (%) (Auto) 7.8H, Eosinophils (%) (Auto) 2.2, Basophils (%) (Auto) 0.8, Neutrophils # (Auto) 4.1, Lymphocytes # (Auto) 1.2L, Monocytes # (Auto) 0.5, Eosinophils # (Auto) 0.1, Basophils # (Auto) 0.1, Nucleated Red Blood Cells % (auto) 0.0, Anion Gap 6L, Glomerular Filtration Rate > 60.0, Estimated Mean Plasma Glucose 180H, Hemoglobin A1c 7.9, Blood Urea Nitrogen 22H, Creatinine 0.61L, Sodium Level 136, Potassium Level 4.7, Chloride Level 99, Carbon Dioxide Level 31, Calcium Level 8.4L, Aspartate Amino Transf (AST/SGOT) 17, Alanine Aminotransferase (ALT/SGPT) 22, Alkaline Phosphatase 116, Total Bilirubin 0.2, Total Protein 7.2, Albumin 1.9L, Albumin/Globulin Ratio 0.36L 04/14/19 20:28: Bedside Glucose (Misc Panel) 139H 04/15/19 05:52: Immature Granulocyte % (Auto) 0.4, White Blood Count 4.8, Red Blood Count 3.13L, Hemoglobin 8.9L, Hematocrit 28.5L, Mean Corpuscular Volume 91.1, Mean Corpuscular Hemoglobin 28.4, Mean Corpuscular Hemoglobin Concent 31.2L, Red Cell Distribution Width 19.0H, Platelet Count 427, Neutrophils (%) (Auto) 60.3, Lymphocytes (%) (Auto) 25.8, Monocytes (%) (Auto) 10.0H, Eosinophils (%) (Auto) 2.3, Basophils (%) (Auto) 1.2H, Neutrophils # (Auto) 2.9, Lymphocytes # (Auto) 1.2L, Monocytes # (Auto) 0.5, Eosinophils # (Auto) 0.1, Basophils # (Auto) 0.1, Nucleated Red Blood Cells % (auto) 0.0, Anion Gap 6L, Glomerular Filtration Rate > 60.0, Blood Urea Nitrogen 22H, Creatinine 0.64L, Sodium Level 138, Potassium Level 4.3, Chloride Level 102, Carbon Dioxide Level 30, Calcium Level 9.1, Aspartate Amino Transf (AST/SGOT) 17, Alanine Aminotransferase (ALT/SGPT) 12, Alkaline Phosphatase 118H, Total Bilirubin 0.3, Total Protein 8.2, Albumin 2.0L, Albumin/Globulin Ratio 0.32L 04/15/19 11:26: Bedside Glucose (Misc Panel) 210H 04/15/19 16:35: Bedside Glucose (Misc Panel) 187H CBC/BMP Laboratory Tests 04/14/19 18:11 Red Blood Count 2.98 L, Mean Corpuscular Volume 89.9, Mean Corpuscular Hemoglobin 28.9, Mean Corpuscular Hemoglobin Concent 32.1, Red Cell Distribution Width 19.0 H, Neutrophils (%) (Auto) 68.9 H, Lymphocytes (%) (Auto) 20.0 L, Monocytes (%) (Auto) 7.8 H, Eosinophils (%) (Auto) 2.2, Basophils (%) (Auto) 0.8, Neutrophils # (Auto) 4.1, Lymphocytes # (Auto) 1.2 L, Monocytes # (Auto) 0.5, Eosinophils # (Auto) 0.1, Basophils # (Auto) 0.1, Calcium Level 8.4 L, Aspartate Amino Transf (AST/SGOT) 17, Alanine Aminotransferase (ALT/SGPT) 22, Alkaline Phosphatase 116, Total Bilirubin 0.2, Total Protein 7.2, Albumin 1.9 L 04/15/19 05:52 Red Blood Count 3.13 L, Mean Corpuscular Volume 91.1, Mean Corpuscular He moglobin 28.4, Mean Corpuscular Hemoglobin Concent 31.2 L, Red Cell Distribution Width 19.0 H, Neutrophils (%) (Auto) 60.3, Lymphocytes (%) (Auto) 25.8, Monocytes (%) (Auto) 10.0 H, Eosinophils (%) (Auto) 2.3, Basophils (%) (Auto) 1.2 H, Neutrophils # (Auto) 2.9, Lymphocytes # (Auto) 1.2 L, Monocytes # (Auto) 0.5, Eosinophils # (Auto) 0.1, Basophils # (Auto) 0.1, Calcium Level 9.1, Aspartate Amino Transf (AST/SGOT) 17, Alanine Aminotransferase (ALT/SGPT) 12, Alkaline Phosphatase 118 H, Total Bilirubin 0.3, Total Protein 8.2, Albumin 2.0 L Microbiology Microbiology 04/14/19 Stool Occult Blood (EMILIE) - Final, Complete HEYDI SUE. [facility] Apr 15, 2019 18:17
[2019-04-15 20:00] VITALS: BP 113/67
[2019-04-15] MEDS: SENNA 8.6 MG TAB (SENOKOT) PO SCH (20:25)
[2019-04-15] MEDS: LEVEMIR (INSULIN DETEMIR) 1 UNITS/0.01ML SC SCH (20:25)
[2019-04-15] MEDS: PANTOPRAZOLE 40MG TAB (PROTONIX) PO SCH (20:25)
[2019-04-15] MEDS: BOUDREAUX'S BUTT PASTE TOP SCH (20:26)
[2019-04-16] MEDS: PIPERACILLIN/TAZOBACTAM SOD 3.375 GM in D5W MINI-BAG PLUS 50 ML IV SCH ×5 (00:01→23:00)
[2019-04-16 06:00] VITALS: BP 113/64
[2019-04-16] MEDS: METOPROLOL TART 12.5 MG PER 1/2 TAB PO SCH ×3 (06:12→22:53)
[2019-04-16] MEDS: SODIUM CHLORIDE 0.9% INJ 10 ML SYR IV SCH ×2 (06:13→16:58)
[2019-04-16] MEDS: traMADol 50 MG TAB PO PRN ×2 (06:32→20:24)
[2019-04-16 07:00] LABS: BASO # 0.1 10^3/uL (0.0-0.2); BASO % 0.8 % (0.0-1.0); EOS # 0.2 10^3/uL (0.0-0.50); EOS % 2.6 % (0.0-3.0); HEMATOCRIT 28.5 % (42.0-52.0); HEMOGLOBIN 8.9 g/dl (13.5-17.5); LYMPH # 1.1 10^3/uL (1.5-4.5); MEAN CORPUSCULAR HEMOGLOBIN 27.3 pg (27.0-33.0); MEAN CORPUSCULAR HGB CONC 31.2 g/dl (32.0-36.5); MEAN CORPUSCULAR VOLUME 87.4 fl (80.0-96.0); MONO # 0.4 10^3/uL (0.0-0.8); MONO % 7.1 % (0.0-5.0); NEUTROPHILS # 4.5 10^3/uL (1.8-7.7); NEUTROPHILS % 72.2 % (36.0-66.0); PLATELET COUNT, AUTOMATED 375 10^3/uL (150-450); RED BLOOD COUNT 3.26 10^6/uL (4.30-6.10); WHITE BLOOD COUNT 6.2 10^3/uL (4.0-10.0)
[2019-04-16] MEDS: APIXABAN 5 MG TAB (ELIQUIS) PO SCH ×2 (08:40→20:24)
[2019-04-16] MEDS: PANTOPRAZOLE 40MG TAB (PROTONIX) PO SCH ×2 (08:40→20:23)
[2019-04-16] MEDS: ACETAMINOPHEN 500 MG TAB PO SCH ×3 (08:40→20:23)
[2019-04-16] MEDS: GABAPENTIN 300 MG CAP PO SCH ×3 (08:40→20:22)
[2019-04-16] MEDS: FERROUS GLUCONATE 324 MG TAB PO SCH (08:40)
[2019-04-16] MEDS: BOUDREAUX'S BUTT PASTE TOP SCH ×2 (08:41→20:25)
[2019-04-16] MEDS: HumaLOG INSULIN (NovoLOG) PER UNIT SC SCH ×4 (08:41→20:22)
[2019-04-16] MEDS: DOCUSATE SODIUM 100 MG CAP PO SCH ×2 (08:41→20:25)
[2019-04-16] MEDS: SODIUM CHLORIDE 0.9% INJ 10 ML SYR IV PRN ×2 (11:28→19:26)
[2019-04-16 14:00] VITALS: BP 121/70
--- NOTE | 2019-04-16 14:59 | CR.PDOC ---
General Date of Consultation: Apr 16, [address] Moss HPI: 48M who presented to [facility] ED on 03/29/19 complaining of a left foot ulcer and swollen leg with shortness of breath. Dopplers revealed left lower extremity DVTs including a femoral DVT and CT angio chest was positive for bilateral lower lobe pulmonary emboli. There was concern on exam for necrotizing fasciitis for which CT showed extensive cellulitis of the left ankle and foot,extensive necrotizing fasciitis of the left ankle and foot,Osteomyelitis involving the great toe, cuneiform bones, cuboid, and calcaneus. He was started on IV antibiotics, a heparin drip, and transferred to [facility] where he was admitted under vascular surgery. He underwent a BKA on 03/30/19 followed by an AKA on 04/02/19 complicated by significant post-op anemia requiring multiple blood transfusions. He also was found to have a positive stool occult blood. An IVC filter was placed 04/01/19 and he was started on Eliquis. The pt was transferred to the care of MARIA Butler on 04/14/19. Vascular surgery is consulted re non palpable pulses RLE. No acute medical complaints today. Denies any fevers, chills, weakness, fatigue, Headache, Chest Pain, Shortness of breath, cough, palpitations, abdominal pain, N/V/D or changes in bowel or bladder habits. PAST MEDICAL HISTORY: Diabetes Mellitus Anemia GERD Depression Anxiety Bipolar disorder Schizophrenia PAST SURGICAL HISTORY: 1. Left BKA 2. Left AKA SOCIAL HISTORY: Employment:Disabled Tobacco use:denies ETOH: Denies Illicit drug use: denies IV drug use: Denies ROS: As noted in HPI, otherwise 11pt ROS of systems reviewed and unremarkable. PE: GEN: 48 yo M, appears stated age. Well-nourished, well developed. No acute distress. Alert and oriented x 3. Pleasant, interactive. HEENT: Normocephalic, atraumatic. Sclera are nonicteric. Conjunctiva without injection. Nose midline. No facial asymmetry. Moist mucous membranes. CHEST: Regular rate and rhythm, +S1, +S2 LUNGS: Clear to auscultation bilaterally. No wheezes, rales, or rhonchi. Breathing appears symmetric and easy. ABD: Round, soft, non-tender, non-distended. +Bowel sounds throughout. EXT: Right AKA with bandage intact. LLE with biphasic doppler pulse DP, triphasic PT with doppler. SKIN: [place], dry, warm. No rashes. a few excoriations are noted RLE. no ulcerations/sores. NEURO: Alert and oriented x 3. Cranial nerves III-XII are intact. No focal deficits appreciated. A&P: PVD. RLE with biphasic DP and triphasic PT with doppler. Will check arterial US RLE. Monitor. Necrotizing Fascitis S/P left BKA, then left AKA Zosyn until 04/16/19 Left common Femoral DVT/PE provoked likely by infection and possible PAD/PVD S/P IVC placement continue Eliquis Anemia mgmt as per primary team S/P transfusion multiple units PRBC at other facility Hemoglobin currently stable stool for occult blood was also positive at another facility Continued on Eliquis for recent PE/DVT Thank you for your consultation. We will continue to follow along with you. Vital Signs/I&O Vital Signs Date Time Temp Pulse Resp B/P (MAP) Pulse Ox O2 Delivery O2 Flow Rate FiO2 04/16/19 07:02 16 04/16/19 06:12 107 113/64 04/16/19 06:00 98.8 92 I&O- Last 24 Hours up to 6 AM 04/16/19 06:00 Intake Total 2580 ml Output Total 2700 ml Balance -120 ml Laboratory Data Labs 24H Laboratory Tests 2 04/15/19 16:35: Bedside Glucose (Misc Panel) 187H 04/15/19 20:14: Bedside Glucose (Misc Panel) 207H 04/16/19 06:10: Bedside Glucose (Misc Panel) 104 04/16/19 06:28: Immature Granulocyte % (Auto) 0.3, White Blood Count 6.2, Red Blood Count 3.26L, Hemoglobin 8.9L, Hematocrit 28.5L, Mean Corpuscular Volume 87.4, Mean Corpuscu lar Hemoglobin 27.3, Mean Corpuscular Hemoglobin Concent 31.2L, Red Cell Distribution Width 18.5H, Platelet Count 375, Neutrophils (%) (Auto) 72.2H, Lymphocytes (%) (Auto) 17.0L, Monocytes (%) (Auto) 7.1H, Eosinophils (%) (Auto) 2.6, Basophils (%) (Auto) 0.8, Neutrophils # (Auto) 4.5, Lymphocytes # (Auto) 1.1L, Monocytes # (Auto) 0.4, Eosinophils # (Auto) 0.2, Basophils # (Auto) 0.1, Nucleated Red Blood Cells % (auto) 0.0 04/16/19 11:23: Bedside Glucose (Misc Panel) 120H CBC/BMP Laboratory Tests 04/16/19 06:28 Red Blood Count 3.26 L, Mean Corpuscular Volume 87.4, Mean Corpuscular Hemoglobin 27.3, Mean Corpuscular Hemoglobin Concent 31.2 L, Red Cell Dis tribution Width 18.5 H, Neutrophils (%) (Auto) 72.2 H, Lymphocytes (%) (Auto) 17.0 L, Monocytes (%) (Auto) 7.1 H, Eosinophils (%) (Auto) 2.6, Basophils (%) (Auto) 0.8, Neutrophils # (Auto) 4.5, Lymphocytes # (Auto) 1.1 L, Monocytes # (Auto) 0.4, Eosinophils # (Auto) 0.2, Basophils # (Auto) 0.1 Microbiology Microbiology 04/14/19 Stool Occult Blood (EMILIE) - Final, Complete Allergies Coded Allergies: Penicillins (Verified Allergy, Mild, UNKNOWN CHILDHOOD REACTION, 04/14/19) HAS BEEN RECEIVING ZOSYN FOR AN EXTENDED INTERVAL WITH NO ISSUES; THEREFORE, NO LONGER A PCN ALLERGY CONCERN 04/14/19 Home Medications Scheduled Acetaminophen (Acetaminophen) 325 Mg Tablet, 975 MG PO TID, (Reported) Apixaban (Eliquis) 5 Mg Tablet, 5 MG PO BID, (Reported) Ferrous Sulfate (Ferrous Sulfate) 325 Mg Tablet, 325 MG PO DAILY, (Reported) Gabapentin (Gabapentin) 300 Mg Capsule, 300 MG PO TID, (Reported) Insulin Glargine,Hum.rec.anlog (Lantus Solostar) 100 Unit/1 Ml Insuln.pen, 62 UNITS SC QHS, (Reported) Insulin Human Lispro (Humalog) 100 Unit/1 Ml Vial, 1 DOSE SC AC, (Reported) PER SLIDING SCALE Metoprolol Tartrate (Metoprolol Tartrate) 25 Mg Tablet, 12.5 MG PO BID, (Repor elsie) Pantoprazole Sodium (Pantoprazole Sodium) 40 Mg Tablet.dr, 40 MG PO DAILY, (Reported) Piperacillin Sodium/Tazobactam (Zosyn 3.375 Gram Vial) 3.375 Gm Vial, 3.375 GM IV Q8H, (Reported) END DATE 04/18/19 Scheduled PRN Sennosides (Senna) 8.6 Mg Tablet, 2 TAB PO QHS PRN for CONSTIPATION, (Reported) Simethicone (Simethicone) 80 Mg Tab.chew, 80 MG PO Q6H PRN for GAS PAIN, (Reported) Tramadol HCl (Tramadol HCl) 50 Mg Tablet, 50 MG PO Q6H PRN for PAIN, (Reported) Nataliia Gaona Apr 16, 2019 14:59
--- NOTE | 2019-04-16 19:15 | REP ---
Clinical: Peripheral vascular disease. History of left lower extremity above-knee amputation. Technique: Real time thomas scale and color Doppler evaluation of the right lower extremity arterial vasculature using linear high frequency transducer. Findings: The ankle to brachial index of the right lower extremity is 1.2. Color Doppler interrogation demonstrates normal triphasic and biphasic arterial wave patterns and velocities from the common femoral artery through the tibial arteries. PSV(cm/sec) LEFT Common femoral artery 76.0 cm/s biphasic Profunda femoris artery 32.0 cm/s triphasic Proximal superficial femoral artery 65.0 cm/s biphasic Mid superficial femoral artery 60.0 cm/s biphasic Distal superficial femoral artery 47.7 cm/s biphasic Popliteal artery 48.1 cm/s biphasic Proximal SANTI 37.4 cm/s triphasic Tibioperoneal trunk 54.5 cm/s biphasic Proximal LAB TECHNOLOGIST 43.8 cm/s biphasic Distal LAB TECHNOLOGIST 71.7 cm/s biphasic Distal SANTI 32.5 cm/s triphasic Impression: No evidence for stenosis or occlusion involving the right lower extremity. Electronically Signed by Esau Houston MD 04/16/2019 07:06 P
[2019-04-16 20:00] VITALS: BP 110/57
[2019-04-16] MEDS: LEVEMIR (INSULIN DETEMIR) 1 UNITS/0.01ML SC SCH (20:22)
[2019-04-16] MEDS: SENNA 8.6 MG TAB (SENOKOT) PO SCH (20:24)
--- NOTE | 2019-04-16 21:58 | IPNPDOC ---
Subjective Date Seen The patient was seen on 04/16/19. Subjective Chief Complaint/HPI Pt was seen and examined at bedside. Pt complains of cough associated with sore throat. Denies fevere or purulent discharge. Otherwise, chonic comorbidities stable. General: Reports: Normal Appetite; Denies: Chills, Night Sweats, Fatigue, Malaise Constitutional: Denies: Chills, Fever, Night Sweats Eyes: Denies: Pain, Vision change ENT: Denies: Head Aches, Ear Pain, Dysphagia Skin: Denies: Rash, Lesions, Breakdown Pulmonary: Denies: Dyspnea, Cough Cardiovascular: Denies: Chest Pain, Palpitations, Orthopnea, Paroxysmal Noc. Dyspnea, Lt Headedness Gastrointestinal: Denies: Nausea, Vomiting, Abdominal Pain, Diarrhea, Constipation Genitourinary: Denies: Dysuria, Frequency, Incontinence, Retention Objective Physical Examination General Exam: Positive: Alert, Cooperative, No Acute Distress Eye Exam: Positive: PERRLA, Conjunctiva & lids normal, EOMI ENT Exam: Positive: Atraumatic, Mucous membr. moist/pink, Tongue Midline Neck Exam: Positive: Supple; Negative: JVD, thyromegaly Chest Exam: Positive: Clear to auscultation, Normal air movement Heart Exam: Positive: Regular Rhythm Telemetry: Positive: No significant arrhythmia Abdomen Exam: Positive: Normal bowel sounds, Soft; Negative: Tenderness Male Exam: Positive: Normal Genital Exam Extremity Exam: Negative: Clubbing, Cyanosis, Edema Skin Exam: Positive: Nl turgor and temperature, Other skin issue (left AKA d ressing dry and intact) Neuro Exam: Positive: Normal Speech, Cranial Nerves 3-12 NL Psych Exam: Positive: Mood NL, Oriented x 3 Assessment /Plan Assessment Necrotizing Fascitis -S/P left BKA, then left AKA -S/P PICC for administration of Zosyn till 04/16/19 -continue to monitor for signs and symptoms of infectious process. Diabetes mellitus -Hemoglobin A1c 7.9 -Continue finger stick checks prior to meals and at bedtime -continue Lantus 62 units at bedtime -diabetic diet Anemia -S/P transfusion multiple units PRBC at other facility -Hemoglobin currently stable -stool for occult blood was also positive at another facility -Continued on Eliquis for recent PE/DVT Left common Femoral DVT/PE -provoked likely by infection and possible PAD/PVD -S/P IVC placement -continue Eliquis Plan/VTE VTE Prophylaxis Ordered?: Yes VS, I&O, 24H, Fishbone Vital Signs/I&O Vital Signs Date Time Temp Pulse Resp B/P (MAP) Pulse Ox O2 Delivery O2 Flow Rate FiO2 04/16/19 20:24 18 04/16/19 20:00 99.5 107 110/57 (74) 96 I&O- Last 24 Hours up to 6 AM 04/16/19 06:00 Intake Total 2580 ml Output Total 2700 ml Balance -120 ml Laboratory Data 24H LABS Laboratory Tests 2 04/16/19 06:10: Bedside Glucose (Misc Panel) 104 04/16/19 06:28: Immature Granulocyte % (Auto) 0.3, White Blood Count 6.2, Red Blood Count 3.26L, Hemoglobin 8.9L, Hematocrit 28.5L, Mean Corpuscular Volume 87.4, Mean Corpuscular Hemoglobin 27.3, Mean Corpuscular Hemoglobin Concent 31.2L, Red Cell Distribution Width 18.5H, Platelet Count 375, Neutrophils (%) (Auto) 72.2H, Lymphocytes (%) (Auto) 17.0L, Monocytes (%) (Auto) 7.1H, Eosinophils (%) (Auto) 2.6, Basophils (%) (Auto) 0.8, Neutrophils # (Auto) 4.5, Lymphocytes # (Auto) 1.1L, Monocytes # (Auto) 0.4, Eosinophils # (Auto) 0.2, Basophils # (Auto) 0.1, Nucleated Red Blood Cells % (auto) 0.0 04/16/19 11:23: Bedside Glucose (Misc Panel) 120H 04/16/19 16:44: Bedside Glucose (Misc Panel) 173H 04/16/19 20:03: Bedside Glucose (Misc Panel) 309H CBC/BMP Laboratory Tests 04/16/19 06:28 Red Blood Count 3.26 L, Mean Corpuscular Volume 87.4, Mean Corpuscular Hemoglobin 27.3, Mean Corpuscular Hemoglobin Concent 31.2 L, Red Cell Distribution Width 18.5 H, Neutrophils (%) (Auto) 72.2 H, Lymphocytes (%) (Auto) 17.0 L, Monocytes (%) (Auto) 7.1 H, Eosinophils (%) (Auto) 2.6, Basophils (%) (Auto) 0.8, Neutrophils # (Auto) 4.5, Lymphocytes # (Auto) 1.1 L, Monocytes # (Auto) 0.4, Eosinophils # (Auto) 0.2, Basophils # (Auto) 0.1 Microbiology Microbiology 04/14/19 Stool Occult Blood (EMILIE) - Final, Complete TATIANA MAZARIEGOS MD Apr 16, 2019 21:58
[2019-04-17] MEDS: SODIUM CHLORIDE 0.9% INJ 10 ML SYR IV PRN ×3 (00:03→12:46)
[2019-04-17] MEDS ORDERED: CEPACOL LOZENGE PO PRN (02:45)
[2019-04-17 04:00] VITALS: BP 99/57
[2019-04-17] MEDS: METOPROLOL TART 12.5 MG PER 1/2 TAB PO SCH ×2 (06:00→21:17)
[2019-04-17] MEDS: SODIUM CHLORIDE 0.9% INJ 10 ML SYR IV SCH ×2 (06:00→17:37)
[2019-04-17] MEDS: PIPERACILLIN/TAZOBACTAM SOD 3.375 GM in D5W MINI-BAG PLUS 50 ML IV SCH ×2 (06:23→12:46)
[2019-04-17] MEDS: HumaLOG INSULIN (NovoLOG) PER UNIT SC SCH ×4 (07:30→21:00)
[2019-04-17] MEDS: DOCUSATE SODIUM 100 MG CAP PO SCH (09:00)
[2019-04-17] MEDS: GABAPENTIN 300 MG CAP PO SCH ×3 (09:10→21:00)
[2019-04-17] MEDS: FERROUS GLUCONATE 324 MG TAB PO SCH (09:10)
[2019-04-17] MEDS: ACETAMINOPHEN 500 MG TAB PO SCH ×3 (09:10→21:23)
[2019-04-17] MEDS: APIXABAN 5 MG TAB (ELIQUIS) PO SCH ×2 (09:10→21:18)
[2019-04-17] MEDS: PANTOPRAZOLE 40MG TAB (PROTONIX) PO SCH ×2 (09:10→21:18)
[2019-04-17] MEDS: BOUDREAUX'S BUTT PASTE TOP SCH ×2 (09:11→21:29)
--- NOTE | 2019-04-17 10:13 | IPNPDOC ---
Date Seen The patient was seen on 04/17/19. Progress Note Vascular Surgery Dr Moss HPI: 48M who presented to [facility] ED on 03/29/19 complaining of a left foot ulcer and swollen leg with shortness of breath. Dopplers revealed left lower extremity DVTs including a femoral DVT and CT angio chest was positive for bilateral lower lobe pulmonary emboli. There was concern on exam for necrotizing fasciitis for which CT showed extensive cellulitis of the left ankle and foot,extensive necrotizing fasciitis of the left ankle and foot,Osteomyelitis involving the great toe, cuneiform bones, cuboid, and calcaneus. He was started on IV antibiotics, a heparin drip, and transferred to [facility] where he was admitted under vascular surgery. He underwent a BKA on 03/30/19 followed by an AKA on 04/02/19 complicated by significant post-op anemia requiring multiple blood transfusions. He also was found to have a positive stool occult blood. An IVC filter was placed 04/01/19 and he was started on Eliquis. The pt was transferred to the care of MARIA Butler on 04/14/19. Vascular surgery is consulted re non palpable pulses RLE. Denies any fevers, chills, weakness, fatigue, Headache, Chest Pain, Shortness of breath, cough, palpitations, abdominal pain, N/V/D or changes in bowel or bladder habits. PAST MEDICAL HISTORY: Diabetes Mellitus Anemia GERD Depression Anxiety Bipolar disorder Schizophrenia PAST SURGICAL HISTORY: 1. Left BKA 2. Left AKA SOCIAL HISTORY: Employment:Disabled Tobacco use:denies ETOH: Denies Illicit drug use: denies IV drug use: Denies ROS: As noted in HPI, otherwise 11pt ROS of systems reviewed and unremarkable. PE: GEN: 48 yo M, appears stated age. Well-nourished, well developed. No acute distress. Alert and oriented x 3. Pleasant, interactive. HEENT: Normocephalic, atraumatic. Sclera are nonicteric. Conjunctiva without injection. Nose midline. No facial asymmetry. Moist mucous membranes. CHEST: Regular rate and rhythm, +S1, +S2 LUNGS: Clear to auscultation bilaterally. No wheezes, rales, or rhonchi. Breathing appears symmetric and easy. ABD: Round, soft, non-tender, non-distended. +Bowel sounds throughout. EXT: Right AKA with bandage intact. LLE with biphasic doppler pulse DP, triphasi c PT with doppler. SKIN: [place], dry, warm. No rashes. a few excoriations are noted RLE. no ulcerations/sores. NEURO: Alert and oriented x 3. Cranial nerves III-XII are intact. No focal deficits appreciated. RLE Art US The ankle to brachial index of the right lower extremity is 1.2. Color Doppler interrogation demonstrates normal triphasic and biphasic arterial wave patterns and velocities from the common femoral artery through the tibial arteries. PSV(cm/sec) LEFT Common femoral artery 76.0 cm/s biphasic Profunda femoris artery 32.0 cm/s triphasic Proximal superficial femoral artery 65.0 cm/s biphasic Mid superficial femoral artery 60.0 cm/s biphasic Distal superficial femoral artery 47.7 cm/s biphasic Popliteal artery 48.1 cm/s biphasic Proximal SANTI 37.4 cm/s triphasic Tibioperoneal trunk 54.5 cm/s biphasic Proximal PRESSURE TESTER 43.8 cm/s biphasic Distal PRESSURE TESTER 71.7 cm/s biphasic Distal SANTI 32.5 cm/s triphasic Impression: No evidence for stenosis or occlusion involving the right lower extremity. Electronically Signed by Esau Houston MD 04/16/2019 07:06 P A&P: PVD. RLE with biphasic DP and triphasic PT with doppler. arterial US RLE, No evidence for stenosis or occlusion. Continue to monitor as outpt. Can arrange F/U RLE arterial US in 6 mo with FU with Dr Moss's office after testing to review. Monitor. Necrotizing Fascitis S/P left BKA, then left AKA Zosyn until 04/16/19 Left common Femoral DVT/PE provoked likely by infection and possible PAD/PVD S/P IVC placement continue Eliquis Anemia mgmt as per primary team S/P transfusion multiple units PRBC at other facility Hemoglobin currently stable stool for occult blood was also positive at another facility Continued on Eliquis for recent PE/DVT VS, I&O, 24H, Fishbone Vital Signs/I&O Vital Signs Date Time Temp Pulse Resp B/P (MAP) Pulse Ox O2 Delivery O2 Flow Rate FiO2 04/17/19 06:00 97 99/57 04/17/19 04:00 98.1 18 98 I&O- Last 24 Hours up to AM 04/17/19 06:00 Intake Total 2450 ml Output Total 2750 ml Balance -300 ml Laboratory Data 24H LABS Laboratory Tests 2 04/16/19 11:23: Bedside Glucose (Misc Panel) 120H 04/16/19 16:44: Bedside Glucose (Misc Panel) 173H 04/16/19 20:03: Bedside Glucose (Misc Panel) 309H 04/17/19 06:11: Bedside Glucose (Misc Panel) 85 Microbiology Microbiology 04/14/19 Stool Occult Blood (EMILIE) - Final, Complete aNtaliia Gaona Apr 17, 2019 10:13
[2019-04-17] MEDS: traMADol 50 MG TAB PO PRN ×2 (12:46→21:18)
[2019-04-17 14:00] VITALS: BP 118/64
--- NOTE | 2019-04-17 16:50 | IPNPDOC ---
PM&R Progress Note DATE OF SERVICE: Apr 16, 2019 [facility] Progress Note Subjective: Patient reports he feels better after having received the blood transfusion, but reports having sore throat and mild cough. REVIEW OF SYSTEMS: The following is a completed review of systems and has been reviewed. Review of systems otherwise unremarkable. PAIN: Patient self reports left residual and phantom limb pain EYES: poor vision EARS, NOSE, & THROAT:denies throat pain or dysphagia CARDIOVASCULAR: denies chest pain or palpitations PULMONARY: Negative. Denies shortness of breath GASTROINTESTINAL: +abdominal distension, denies constipation or diarrhea GENITOURINARY: Negative for dysuria MUSCULOSKELETAL: left AKA NEUROLOGICAL: +peripheral neuropathy HEMATOLOGICAL: +anemia SKIN: per [facility] records stage 3 sacral ulcer, left AKA incision PSYCHIATRIC: +schizophrenia All other review of systems found to be negative. PHYSICAL EXAMINATION: VITAL SIGNS: Please see below. GENERAL: Pleasant and cooperative. No acute distress. +glasses HEENT: PERRL. Extraocular movements intact. Clear conjunctiva CARDIOVASCULAR: Regular rate and rhythm. No murmurs, rubs, or gallops LUNGS: Clear to auscultation bilaterally. No wheezes. No rhonchi ABDOMEN: Soft, nontender, mildly-distended. hyperractive bowel sounds, no guarding NEUROLOGICAL: Alert and oriented times three. Cranial nerves II through XII grossly intact. Sensation grossly diminished to light touch in right foot and ankle EXTREMITIES: 5\5 strength bilateral upper extremities.5-\5 strength right hip flexor, knee extension, and knee flexion, 1/5 ankle DF and EHL left hip flexion 5-/5 SKIN: left AKA sutures c/d/i, sacral region and right buttock what appears to be a healed stage 2 ASSESSMENT:48-year-old M with past medical history of poorly controlled DM who presents status post left AKA for necrotizing fasciitis of the LLE with right sided foot drop PLAN: 1. Rehab: PT, OT, assess for DME, patient encouraged to have ramp built for mobility 2. Neuro: severe diabetic neuropathy resulting in poor wound healing and right foot drop 3. Cardiac: tachycardia likely in the setting of CAD given longstanding hx of poorly controlled DM- c/u metoprolol, medicine consulted to follow 4. Resp: +bilateral PE diagnosed 03/29/19, on eliquis 5mg BID (known positive FOBT from [facility]), IVC filter placed 04/01/19 -encourage incentive spirometry 5. Endo: poorly controlled DM- c/u insulin coverage with ISS-will refer to outpatient Endocrinology 6. Vascular; s/p LLE necrotizing fasciitis requiring BKA followed by AKA- will need to f/u with vascular as outpatient 7. ID: c/u IV Zosyn per recs until 04/18/19-will order ID consult 8. Skin: change left limb dressing BID, monitor for infection, apply Zinc to sacrum BID 9. Pain: c/u tylenol, tramadol, and gabapentin 10. GI ppx: Protonix BID while on Eliquis with known GI bleed, Simethicone for gas- repeat FOBT ordered 11. : monitor PVRs 12. vascular: concenred for vascular disease in RLE given weak pedal pulses- underwent arterial US 04/16/19 showing no stenosis with CORBY 1.2, vascular consulted and recs appreciated 13. Heme: anemia likely due to blood loss from recent surgery, known GI bleed, although source not determined, and chronic disease 12. Dispo: TBD Allergies Coded Allergies: Penicillins (Verified Allergy, Mild, UNKNOWN CHILDHOOD REACTION, 04/14/19) HAS BEEN RECEIVING ZOSYN FOR AN EXTENDED INTERVAL WITH NO ISSUES; THEREFORE, NO LONGER A PCN ALLERGY CONCERN 04/14/19 Vital Signs Vital Signs Date Time Temp Pulse Resp B/P (MAP) Pulse Ox O2 Delivery O2 Flow Rate FiO2 04/17/19 12:46 16 04/17/19 06:00 97 99/57 04/17/19 04:00 98.1 98 Laboratory Data Labs 24H Laboratory Tests 2 04/16/19 20:03: Bedside Glucose (Misc Panel) 309H 04/17/19 06:11: Bedside Glucose (Misc Panel) 85 04/17/19 11:52: Bedside Glucose (Misc Panel) 376H Microbiology Microbiology 04/14/19 Stool Occult Blood (EMILIE) - Final, Complete Current Medications Current Medications Current Medications Acetaminophen (Tylenol Tab) 1,000 mg TID PO Last administered on 04/17/19at 09:10; Start 04/14/19 at 21:00 Al Hydrox/Mg Hydrox/Simethicone (Mylanta) 30 ml Q4HP PRN PO DYSPEPSIA; Start 04/14/19 at 16:30 Apixaban (Eliquis) 5 mg BID PO Last administered on 04/17/19at 09:10; Start 04/14/19 at 21:00 Bisacodyl (Dulcolax Suppository) 10 mg DAILYPRN PRN VT CONSTIPATION; Start 04/14/19 at 16:30 Cetylpyridinium Chloride (Cepacol) 1 mike QID PO ; Start 04/17/19 at 13:00 Cetylpyridinium Chloride (Cepacol) 2 mike Q4HP PRN PO COUGH; Start 04/17/19 at 02:45; Stop 04/17/19 at 13:48; Status DC Dextrose (Dextrose 50%) 25 ml ASDIRECTED PRN IV SEE LABEL COMMENTS; Start 04/14/19 at 16:45 Docusate Sodium (Colace) 100 mg BID PO Last administered on 04/16/19at 20:25; Start 04/14/19 at 21:00 Ferrous Gluconate (Fergon) 324 mg DAILY PO Last administered on 04/17/19at 09:10; Start 04/15/19 at 09:00 Gabapentin (Neurontin) 300 mg TID PO Last administered on 04/17/19at 09:10; Start 04/14/19 at 21:00 Glucagon (Glucagon) 1 mg ASDIRECTED PRN SC SEE LABEL COMMENTS; Start 04/14/19 at 16:45 Glucose (Glucose) 16 GM ASDIRECTED PRN PO SEE LABEL COMMENTS; Start 04/14/19 at 16:45 Guaifenesin (Robitussin Tab) 400 mg BID PO ; Start 04/17/19 at 09:00 Heparin Sodium (Heparin (Flush)) 200 units ASDIRECTED PRN IV SEE LABEL COMMENTS Last administered on 04/17/19at 12:46; Start 04/14/19 at 17:30 Heparin Sodium (Heparin (Flush)) 200 units PICC IV Last administered on 04/17/19at 06:00; Start 04/14/19 at 18:00 Home Med (Med Rec Complete!) ASDIRECTED XX ; Start 04/14/19 at 16:00; Stop 04/14/19 at 16:01; Status DC Insulin Detemir (Levemir Insulin) 60 units QHS SC ; Start 04/14/19 at 21:00; Stop 04/14/19 at 21:00; Status DC Insulin Detemir (Levemir Insulin) 62 units QHS SC Last administered on 04/16/19at 20:22; Start 04/14/19 at 21:00 Insulin Human Lispro (HumaLOG INSULIN) SEE PROTOCOL TABLE AC SC Last administered on 04/17/19at 12:47; Start 04/14/19 at 17:30 Insulin Human Lispro (HumaLOG INSULIN) SEE PROTOCOL TABLE QHS SC Last administered on 04/16/19at 20:22; Start 04/14/19 at 21:00 Magnesium Hydroxide (Milk Of Magnesia) 30 ml DAILYPRN PRN PO CONSTIPATION; Start 04/14/19 at 16:30 Metoprolol Tartrate (Lopressor) 12.5 mg BID PO Last administered on 04/15/19at 08:31; Start 04/14/19 at 21:00; Stop 04/15/19 at 14:59; Status DC Metoprolol Tartrate (Lopressor) 12.5 mg BID PO ; Start 04/17/19 at 21:00 Metoprolol Tartrate (Lopressor) 12.5 mg Q8H PO Last administered on 04/16/19at 22:53; Start 04/15/19 at 22:00; Stop 04/17/19 at 10:01; Status DC Metoprolol Tartrate (Lopressor) 25 mg Q8H PO ; Start 04/15/19 at 14:00; Stop 04/15/19 at 15:12; Status DC Ondansetron HCl (ZOFRAN INJection) 4 mg Q6HP PRN IM NAUSEA; Start 04/14/19 at 16:30 Pantoprazole Sodium (Protonix) 40 mg BID PO Last administered on 04/17/19at 09:10; Start 04/15/19 at 21:00 Pantoprazole Sodium (Protonix) 40 mg DAILY PO Last administered on 04/15/19at 08:32; Start 04/15/19 at 09:00; Stop 04/15/19 at 15:58; Status DC Piperacillin Sod/ Tazobactam Sod 3.375 gm/Dextrose 50 ml @ 50 mls/hr Q6H IV Last administered on 04/17/19at 12:46; Start 04/14/19 at 18:00; Stop 04/18/19 at 17:59 Senna (Senokot) 1 tab QHS PO Last administered on 04/16/19 20:24; Start 04/14/19 at 21:00 Simethicone (Mylicon) 80 mg TIDP PRN PO GAS PAIN; Start 04/14/19 at 16:45 Sodium Chloride (Saline Lock Flush) 10 ml ASDIRECTED PRN IV SEE LABEL COMMENTS Last administered on 04/17/19 12:46; Start 04/14/19 at 17:30 Sodium Chloride (Saline Lock Flush) 10 ml PICC IV Last administered on 04/17/19 06:00; Start 04/14/19 at 18:00 Tramadol HCl (Ultram) 50 mg Q4HP PRN PO MODERATE PAIN (PS 5-7) Last administered on 04/17/19 12:46; Start 04/14/19 at 16:45 Zinc Oxide (Boudreauxs Butt Paste) sacrum BID TOP Last administered on 04/17/19 09:11; Start 04/15/19 at 21:00 ALEKSEY MUÑOZ MD Apr 17, 2019 16:50
--- NOTE | 2019-04-17 16:52 | IPNPDOC ---
PM&R Progress Note DATE OF SERVICE: Apr 17, [address] Supervisor Progress Note Subjective: Patient reports he is feeling well, denies having pain, and would like his throat lozenge. REVIEW OF SYSTEMS: The following is a completed review of systems and has been reviewed. Review of systems otherwise unremarkable. PAIN: Patient self reports left residual and phantom limb pain EYES: poor vision EARS, NOSE, & THROAT:denies throat pain or dysphagia CARDIOVASCULAR: denies chest pain or palpitations PULMONARY: Negative. Denies shortness of breath GASTROINTESTINAL: +abdominal distension, denies constipation or diarrhea GENITOURINARY: Negative for dysuria MUSCULOSKELETAL: left AKA NEUROLOGICAL: +peripheral neuropathy HEMATOLOGICAL: +anemia SKIN: per [facility] records stage 3 sacral ulcer, left AKA incision PSYCHIATRIC: +schizophrenia All other review of systems found to be negative. PHYSICAL EXAMINATION: VITAL SIGNS: Please see below. GENERAL: Pleasant and cooperative. No acute distress. +glasses HEENT: PERRL. Extraocular movements intact. Clear conjunctiva CARDIOVASCULAR: Regular rate and rhythm. No murmurs, rubs, or gallops LUNGS: Clear to auscultation bilaterally. No wheezes. No rhonchi ABDOMEN: Soft, nontender, mildly-distended. hyperractive bowel sounds, no guarding NEUROLOGICAL: Alert and oriented times three. Cranial nerves II through XII grossly intact. Sensation grossly diminished to light touch in right foot and ankle EXTREMITIES: 5\5 strength bilateral upper extremities.5-\5 strength right hip flexor, knee extension, and knee flexion, 1/5 ankle DF and EHL left hip flexion 5-/5 SKIN: left AKA sutures c/d/i, sacral region and right buttock what appears to be a healed stage 2 ASSESSMENT:48-year-old M with past medical history of poorly controlled DM who presents status post left AKA for necrotizing fasciitis of the LLE with right sided foot drop PLAN: 1. Rehab: PT, OT, assess for DME, patient encouraged to have ramp built for mobility, able to hop a few feet on right foot with Rw 2. Neuro: severe diabetic neuropathy resulting in poor wound healing and right foot drop 3. Cardiac: tachycardia likely in the setting of CAD given longstanding hx of poorly controlled DM- c/u metoprolol, medicine consulted to follow 4. Resp: +bilateral PE diagnosed 03/29/19, on eliquis 5mg BID (known positive FOBT from [facility]), IVC filter placed 04/01/19 -encourage incentive spirometry 5. Endo: poorly controlled DM- c/u insulin coverage with ISS-will refer to outpatient Endocrinology 6. Vascular; s/p LLE necrotizing fasciitis requiring BKA followed by AKA- will need to f/u with vascular as outpatient 7. ID: c/u IV Zosyn per recs until 04/18/19-will order ID consult -throat pain, c/u lozenge and guaifenesin 8. Skin: change left limb dressing BID, monitor for infection, apply Zinc to sacrum BID 9. Pain: c/u tylenol, tramadol, and gabapentin 10. GI ppx: Protonix BID while on Eliquis with known GI bleed, Simethicone for gas- repeat FOBT ordered 11. : monitor PVRs 12. vascular: concerned for vascular disease in RLE given weak pedal pulses- underwent arterial US 04/16/19 showing no stenosis with CORBY 1.2, vascular consulted and recs appreciated 13. Heme: anemia likely due to blood loss from recent surgery, known GI bleed, although source not determined, and chronic disease- inhouse FOBT negative, will consider Venofer or repeat transfusion (x1 transfusion on 04/15/19) 12. Dispo: TBD Allergies Coded Allergies: Penicillins (Verified Allergy, Mild, UNKNOWN CHILDHOOD REACTION, 04/14/19) HAS BEEN RECEIVING ZOSYN FOR AN EXTENDED INTERVAL WITH NO ISSUES; THEREFORE, NO LONGER A PCN ALLERGY CONCERN 04/14/19 Vital Signs Vital Signs Date Time Temp Pulse Resp B/P (MAP) Pulse Ox O2 Delivery O2 Flow Rate FiO2 04/17/19 12:46 16 04/17/19 06:00 97 99/57 04/17/19 04:00 98.1 98 Laboratory Data Labs 24H Laboratory Tests 2 04/16/19 20:03: Bedside Glucose (Misc Panel) 309H 04/17/19 06:11: Bedside Glucose (Misc Panel) 85 04/17/19 11:52: Bedside Glucose (Misc Panel) 376H Microbiology Microbiology 04/14/19 Stool Occult Blood (EMILIE) - Final, Complete Current Medications Current Medications Current Medications Acetaminophen (Tylenol Tab) 1,000 mg TID PO Last administered on 04/17/19at 09:10; Start 04/14/19 at 21:00 Al Hydrox/Mg Hydrox/Simethicone (Mylanta) 30 ml Q4HP PRN PO DYSPEPSIA; Start 04/14/19 at 16:30 Apixaban (Eliquis) 5 mg BID PO Last administered on 04/17/19at 09:10; Start 04/14/19 at 21:00 Bisacodyl (Dulcolax Suppository) 10 mg DAILYPRN PRN HI CONSTIPATION; Start 04/14/19 at 16:30 Cetylpyridinium Chloride (Cepacol) 1 mike QID PO ; Start 04/17/19 at 13:00 Cetylpyridinium Chloride (Cepacol) 2 mike Q4HP PRN PO COUGH; Start 04/17/19 at 02:45; Stop 04/17/19 at 13:48; Status DC Dextrose (Dextrose 50%) 25 ml ASDIRECTED PRN IV SEE LABEL COMMENTS; Start 04/14/19 at 16:45 Docusate Sodium (Colace) 100 mg BID PO Last administered on 04/16/19at 20:25; Start 04/14/19 at 21:00 Ferrous Gluconate (Fergon) 324 mg DAILY PO Last administered on 04/17/19at 09:10; Start 04/15/19 at 09:00 Gabapentin (Neurontin) 300 mg TID PO Last administered on 04/17/19at 09:10; Start 04/14/19 at 21:00 Glucagon (Glucagon) 1 mg ASDIRECTED PRN SC SEE LABEL COMMENTS; Start 04/14/19 at 16:45 Glucose (Glucose) 16 GM ASDIRECTED PRN PO SEE LABEL COMMENTS; Start 04/14/19 at 16:45 Guaifenesin (Robitussin Tab) 400 mg BID PO ; Start 04/17/19 at 09:00 Heparin Sodium (Heparin (Flush)) 200 units ASDIRECTED PRN IV SEE LABEL COMMENTS Last administered on 04/17/19at 12:46; Start 04/14/19 at 17:30 Heparin Sodium (Heparin (Flush)) 200 units PICC IV Last administered on 04/17/19at 06:00; Start 04/14/19 at 18:00 Home Med (Med Rec Complete!) ASDIRECTED XX ; Start 04/14/19 at 16:00; Stop 04/14/19 at 16:01; Status DC Insulin Detemir (Levemir Insulin) 60 units QHS SC ; Start 04/14/19 at 21:00; Stop 04/14/19 at 21:00; Status DC Insulin Detemir (Levemir Insulin) 62 units QHS SC Last administered on 04/16/19at 20:22; Start 04/14/19 at 21:00 Insulin Human Lispro (HumaLOG INSULIN) SEE PROTOCOL TABLE AC SC Last administered on 04/17/19at 12:47; Start 04/14/19 at 17:30 Insulin Human Lispro (HumaLOG INSULIN) SEE PROTOCOL TABLE QHS SC Last administered on 04/16/19at 20:22; Start 04/14/19 at 21:00 Magnesium Hydroxide (Milk Of Magnesia) 30 ml DAILYPRN PRN PO CONSTIPATION; Start 04/14/19 at 16:30 Metoprolol Tartrate (Lopressor) 12.5 mg BID PO Last administered on 04/15/19at 08:31; Start 04/14/19 at 21:00; Stop 04/15/19 at 14:59; Status DC Metoprolol Tartrate (Lopressor) 12.5 mg BID PO ; Start 04/17/19 at 21:00 Metoprolol Tartrate (Lopressor) 12.5 mg Q8H PO Last administered on 04/16/19at 22:53; Start 04/15/19 at 22:00; Stop 04/17/19 at 10:01; Status DC Metoprolol Tartrate (Lopressor) 25 mg Q8H PO ; Start 04/15/19 at 14:00; Stop 04/15/19 at 15:12; Status DC Ondansetron HCl (ZOFRAN INJection) 4 mg Q6HP PRN IM NAUSEA; Start 04/14/19 at 16:30 Pantoprazole Sodium (Protonix) 40 mg BID PO Last administered on 04/17/19at 09:10; Start 04/15/19 at 21:00 Pantoprazole Sodium (Protonix) 40 mg DAILY PO Last administered on 04/15/19at 08:32; Start 04/15/19 at 09:00; Stop 04/15/19 at 15:58; Status DC Piperacillin Sod/ Tazobactam Sod 3.375 gm/Dextrose 50 ml @ 50 mls/hr Q6H IV Last administered on 04/17/19 12:46; Start 04/14/19 at 18:00; Stop 04/18/19 at 17:59 Senna (Senokot) 1 tab QHS PO Last administered on 04/16/19 20:24; Start 04/14/19 at 21:00 Simethicone (Mylicon) 80 mg TIDP PRN PO GAS PAIN; Start 04/14/19 at 16:45 Sodium Chloride (Saline Lock Flush) 10 ml ASDIRECTED PRN IV SEE LABEL COMMENTS Last administered on 04/17/19 12:46; Start 04/14/19 at 17:30 Sodium Chloride (Saline Lock Flush) 10 ml PICC IV Last administered on 04/17/19 06:00; Start 04/14/19 at 18:00 Tramadol HCl (Ultram) 50 mg Q4HP PRN PO MODERATE PAIN (PS 5-7) Last administer ed on 04/17/19 12:46; Start 04/14/19 at 16:45 Zinc Oxide (Boudreauxs Butt Paste) sacrum BID TOP Last administered on 04/17/19 09:11; Start 04/15/19 at 21:00 ALEKSEY MUÑOZ MD Apr 17, 2019 16:52
[2019-04-17] MEDS: guaiFENesin 200 MG TAB PO SCH ×2 (16:58→21:16)
[2019-04-17] MEDS: CEPACOL LOZENGE PO SCH ×3 (16:59→21:16)
[2019-04-17] MEDS ORDERED: ALBUTEROL 90 MCG/ACT 8GM HFA INHALER INH PRN (17:45)
--- NOTE | 2019-04-17 18:16 | CR ---
DATE OF CONSULTATION: 04/17/2019 Asked to consult by Dr. Padgett for followup on necrotizing fasciitis of left leg. HISTORY OF PRESENT ILLNESS: Lawson is a 48-year-old gentleman with a history of type 2 diabetes, who was noncompliant with his insulin, as he has loss of insurance. The patient presented to [facility] on March 30 with necrotizing fasciitis of the left lower leg and septic shock. The patient was transferred to [facility], where he underwent initially a below-knee amputation (BKA), and once the patient was stable proceeded to an above-knee amputation (AKA). The patient's wound cultures were positive for Enterococcus avium, klebsiella, Citrobacter, and Corynebacterium. Blood cultures from March 29 were negative. He also had guaiac-positive stools, and he was found to have a deep vein thrombosis (DVT) in his left, common femoral vein and bilateral lower lobe, consistent with pulmonary embolism. The patient had an inferior vena cava (IVC) filter placed and was continued on heparin drip at [facility]. He had a drop in his hemoglobin to 6.5 and required blood transfusion. Infectious disease was consulted, and they recommended he continue piperacillin/tazobactam for 2 weeks from lat surgical date, which was April 02, and therefore end of therapy would have been on April 16. He denies any nausea, vomiting, diarrhea at this point. He does complain of a cough, which is mostly dry. He has a history of asthma and had not been using an inhaler at this time. He has no fever or chills. He does complain of a mild sore throat. His maximal temperature yesterday was 99.4. PAST MEDICAL HISTORY: Significant for: 1. Diabetes, poorly compliant. 2. Anemia. 3. Gastrointestinal (GI) bleed. 4. Gastroesophageal reflux disease. 5. Depression. 6. Anxiety. 7. Bipolar disorder. 8. Schizophrenia. PAST SURGICAL HISTORY: Left AKA and BKA in March 2019 at [facility] for necrotizing fasciitis. SOCIAL HISTORY: He is disabled. He denies tobacco abuse. Never smoked. No alcohol or illicit drug use.. He is a sick-looking gentleman in no acute distress. Temperature is 98.1, pulse 112, respirations 18, blood pressure 118/64, oxygen saturation 93% on room air. ALLERGIES: PENICILLIN. MEDICATIONS: - metoprolol 12.5 mg by mouth twice a day - Cepacol one lozenge by mouth four times a day - Robitussin 400 mg by mouth twice a day - pantoprazole 40 mg by mouth twice a day - zinc oxide to sacrum twice a day - ferrous gluconate 325 mg by mouth daily - Colace. The patient has been refusing. - Senokot one tablet by mouth at bedtime - Eliquis 5 mg by mouth twice a day - Tylenol as needed - gabapentin 300 mg by mouth three times a day - Zosyn April 14 until April 18. Will be discontinued today. - Insulin sliding scale - tramadol 50 mg by mouth every 4 as needed - milk of magnesia as needed PHYSICAL EXAMINATION: A frail-looking gentleman in no acute distress. HEART: Normal S1, S2, tachycardiac. No murmurs. LUNGS: Clear. No wheezes, rales, or rhonchi. ABDOMEN: Soft, nontender. No hepatosplenomegaly. BACK: No costovertebral angle (CVA) or lumbosacral tenderness. EXTREMITIES: Right lower extremity with a scratch rajiv and ecchymosis along the whalen. Left above-knee amputation with very swollen stump. No redness. Minimal tenderness. The thigh is probably twice the size of his right thigh. The sutures are in place, and there is no purulence, redness, or tenderness. NEUROLOGIC: Alert and oriented times three. Motor strength is normal. The patient is pretty mobile with his AKA. LABORATORY DATA: White count 6.2, hemoglobin 8.9, hematocrit 28.5, platelets 375, 72% neutrophils, 17% lymphocytes, 7% monocytes. Sodium 138, potassium 4.3, chloride 102, bicarbonate 30, BUN 22, creatinine 0.64, glucose 61, calcium 9.1. Bilirubin 0.3, AST 17, ALT 12, alkaline phosphatase 118, CRP 5.67, down from 20.5 three weeks ago. No recent cultures were done. April 14 stool Hemoccult was negative, and foot culture on March 29 had Citrobacter, klebsiella, Enterococcus avium, Corynebacterium, and two sets of blood cultures on March 29 were negative. IMAGING STUDIES: Extremity arterial study on April 16 shows no evidence of stenosis of the right lower extremity. Extremity CT from March 29 showed necrotizing fasciitis with cast and fluid involving the calf, the gastrocnemius IMPRESSION: This is a 48-year-old gentleman who had necrotizing fasciitis of the left lower extremity, status post above-knee amputation. Has finished a 2-week course of IV Zosyn after his last surgery on April 02. Currently, the wound stump looks like it is healing very well. There is no erythema. No tenderness. No redness. He has significant edema and swelling, but this is more likely related to surgery and the deep vein thrombosis (DVT) and not related to infection. There is no redness, tenderness, or fever. PLAN: Discontinue IV Zosyn. Continue to monitor complete blood count (CBC), C-reactive protein (CRP). Add albuterol as needed for cough, as the patient has underlying history of asthma. Discontinue Colace. The patient has refused.
[2019-04-17 20:00] VITALS: BP 113/67
[2019-04-17] MEDS: SENNA 8.6 MG TAB (SENOKOT) PO SCH (21:00)
[2019-04-17] MEDS: LEVEMIR (INSULIN DETEMIR) 1 UNITS/0.01ML SC SCH (21:27)
--- NOTE | 2019-04-18 03:11 | IPNPDOC ---
Text Note Date of Service The patient was seen on 04/17/19. NOTE Chief Complaint/HPI Pt was seen and examined at bedside. Reports no new complaints. General: Reports: Normal Appetite; Denies: Chills, Night Sweats, Fatigue, Malaise Constitutional: Denies: Chills, Fever, Night Sweats Eyes: Denies: Pain, Vision change ENT: Denies: Head Aches, Ear Pain, Dysphagia Skin: Denies: Rash, Lesions, Breakdown Pulmonary: Denies: Dyspnea, Cough Cardiovascular: Denies: Chest Pain, Palpitations, Orthopnea, Paroxysmal Noc. Dyspnea, Lt Headedness Gastrointestinal: Denies: Nausea, Vomiting, Abdominal Pain, Diarrhea, Constipation Genitourinary: Denies: Dysuria, Frequency, Incontinence, Retention Physical Examination General Exam: Positive: Alert, Cooperative, No Acute Distress Eye Exam: Positive: PERRLA, Conjunctiva & lids normal, EOMI ENT Exam: Positive: Atraumatic, Mucous membr. moist/pink, Tongue Midline Neck Exam: Positive: Supple; Negative: JVD, thyromegaly Chest Exam: Positive: Clear to auscultation, Normal air movement Heart Exam: Positive: Regular Rhythm Telemetry: Positive: No significant arrhythmia Abdomen Exam: Positive: Normal bowel sounds, Soft; Negative: Tenderness Male Exam: Positive: Normal Genital Exam Extremity Exam: Negative: Clubbing, Cyanosis, Edema Skin Exam: Positive: Nl turgor and temperature, Other skin issue (left AKA dressing dry and intact) Neuro Exam: Positive: Normal Speech, Cranial Nerves 3-12 NL Psych Exam: Positive: Mood NL, Oriented x 3 Assessment Necrotizing Fascitis -S/P left BKA, then left AKA -S/P PICC for administration of Zosyn till 04/16/19 -continue to monitor for signs and symptoms of infectious process. Diabetes mellitus -Hemoglobin A1c 7.9 -Continue finger stick checks prior to meals and at bedtime -continue Lantus 62 units at bedtime -diabetic diet Anemia -S/P transfusion multiple units PRBC at other facility -Hemoglobin currently stable -stool for occult blood was also positive at another facility -Continued on Eliquis for recent PE/DVT Left common Femoral DVT/PE -provoked likely by infection and possible PAD/PVD -S/P IVC placement -continue Eliquis Plan/VTE VTE Prophylaxis Ordered?: Yes Vital Signs Date Time Temp Pulse Resp B/P (MAP) Pulse Ox O2 Delivery O2 Flow Rate FiO2 04/17/19 21:48 18 04/17/19 21:18 18 04/17/19 21:17 113 113/67 04/17/19 20:00 98.4 113 20 113/67 (82) 94 04/17/19 14:00 98.1 112 18 118/64 (82) 93 04/17/19 12:46 16 04/17/19 06:00 97 99/57 04/17/19 04:00 98.1 97 18 99/57 (71) 98 Intake & Output 04/18/19 06:00 Intake Total 1420 ml Output Total 750 ml Balance 670 ml Laboratory Tests 04/17/19 06:11: Bedside Glucose (Misc Panel) 85 04/17/19 11:52: Bedside Glucose (Misc Panel) 376H 04/17/19 16:49: C-Reactive Protein, Quantitative 5.67H 04/17/19 17:27: Bedside Glucose (Misc Panel) 322H 04/17/19 19:54: Bedside Glucose (Misc Panel) 180H Microbiology 04/14/19 Stool Occult Blood (EMILIE) - Final, Complete Current Medications Medications (Trade) Dose Ordered Sig/Nathan Route PRN Reason Start Time Stop Time Status Last Admin Dose Admin Acetaminophen (Tylenol Tab) 1,000 mg TID PO 04/14/19 21:00 04/17/19 21:23 1,000 MG Apixaban (Eliquis) 5 mg BID PO 04/14/19 21:00 04/17/19 21:18 5 MG Cetylpyridinium Chloride (Cepacol) 1 dayne QID PO 04/17/19 13:00 04/17/19 21:16 1 DAYNE Ferrous Gluconate (Fergon) 324 mg DAILY PO 04/15/19 09:00 04/17/19 09:10 324 MG Gabapentin (Neurontin) 300 mg TID PO 04/14/19 21:00 04/17/19 21:00 300 MG Guaifenesin (Robitussin Tab) 400 mg BID PO 04/17/19 09:00 04/17/19 21:16 400 MG Heparin Sodium (Heparin (Flush)) 200 units ASDIRECTED PRN IV SEE LABEL COMMENTS 04/14/19 17:30 04/17/19 12:46 200 UNITS Insulin Detemir (Levemir Insulin) 62 units QHS SC 04/14/19 21:00 04/17/19 21:27 62 UNITS Insulin Human Lispro (HumaLOG INSULIN) SEE PROTOCOL TABLE QHS SC 04/14/19 21:00 04/16/19 20:22 4 UNITS Metoprolol Tartrate (Lopressor) 12.5 mg BID PO 04/17/19 21:00 04/17/19 21:17 12.5 MG Pantoprazole Sodium (Protonix) 40 mg BID PO 04/15/19 21:00 04/17/19 21:18 40 MG Senna (Senokot) 1 tab QHS PO 04/14/19 21:00 04/16/19 20:24 1 TAB Sodium Chloride (Saline Lock Flush) 10 ml ASDIRECTED PRN IV SEE LABEL COMMENTS 04/14/19 17:30 04/17/19 12:46 10 ML Tramadol HCl (Ultram) 50 mg Q4HP PRN PO MODERATE PAIN (PS 5-7) 04/14/19 16:45 04/17/19 21:18 50 MG Zinc Oxide (Boudreauxs Butt Paste) sacrum BID TOP 04/15/19 21:00 04/17/19 21:29 1 DOSE VS,Fishbone, I+O VS, Fishbone, I+O Vital Signs Date Time Temp Pulse Resp B/P (MAP) Pulse Ox O2 Delivery O2 Flow Rate FiO2 04/17/19 21:48 18 04/17/19 21:17 113 113/67 04/17/19 20:00 98.4 94 I&O- Last 24 Hours up to 6 AM 04/18/19 06:00 Intake Total 1420 ml Output Total 750 ml Balance 670 ml TATIANA MAZARIEGOS MD Apr 18, 2019 03:11
[2019-04-18 04:58] LABS: BASO # 0.1 10^3/uL (0.0-0.2); BASO % 1.1 % (0.0-1.0); EOS # 0.2 10^3/uL (0.0-0.50); EOS % 3.3 % (0.0-3.0); HEMATOCRIT 29.9 % (42.0-52.0); HEMOGLOBIN 9.4 g/dl (13.5-17.5); LYMPH # 1.7 10^3/uL (1.5-4.5); LYMPH % 37.5 % (24.0-44.0); MEAN CORPUSCULAR HEMOGLOBIN 27.6 pg (27.0-33.0); MEAN CORPUSCULAR HGB CONC 31.4 g/dl (32.0-36.5); MEAN CORPUSCULAR VOLUME 87.7 fl (80.0-96.0); MONO # 0.5 10^3/uL (0.0-0.8); MONO % 10.4 % (0.0-5.0); NEUTROPHILS # 2.1 10^3/uL (1.8-7.7); NEUTROPHILS % 47.3 % (36.0-66.0); PLATELET COUNT, AUTOMATED 415 10^3/uL (150-450); RED BLOOD COUNT 3.41 10^6/uL (4.30-6.10); WHITE BLOOD COUNT 4.5 10^3/uL (4.0-10.0)
[2019-04-18 05:00] VITALS: BP 138/84
[2019-04-18] MEDS: SODIUM CHLORIDE 0.9% INJ 10 ML SYR IV SCH ×2 (05:09→16:57)
[2019-04-18 05:30] LABS: BLOOD UREA NITROGEN 12 MG/DL (7-18); CALCIUM LEVEL 8.9 MG/DL (8.5-10.1); CARBON DIOXIDE LEVEL 31 MEQ/L (21-32); CHLORIDE LEVEL 105 MEQ/L (98-107); CREATININE FOR GFR 0.44 MG/DL (0.70-1.30); GLOMERULAR FILTRATION RATE > 60.0 (>60); GLUCOSE, FASTING 38 MG/DL (70-100); POTASSIUM SERUM 3.5 MEQ/L (3.5-5.1); SODIUM LEVEL 140 MEQ/L (136-145)
[2019-04-18] MEDS: SODIUM CHLORIDE 0.9% INJ 10 ML SYR IV PRN (06:01)
[2019-04-18] MEDS ORDERED: DEXTROSE 50% 50 ML SYRINGE IV STA (06:04)
[2019-04-18] MEDS: GABAPENTIN 300 MG CAP PO SCH ×3 (08:50→20:56)
[2019-04-18] MEDS: guaiFENesin 200 MG TAB PO SCH ×2 (08:50→20:57)
[2019-04-18] MEDS: ACETAMINOPHEN 500 MG TAB PO SCH ×3 (08:50→20:57)
[2019-04-18] MEDS: APIXABAN 5 MG TAB (ELIQUIS) PO SCH ×2 (08:50→20:58)
[2019-04-18] MEDS: PANTOPRAZOLE 40MG TAB (PROTONIX) PO SCH ×2 (08:51→20:57)
[2019-04-18] MEDS: CEPACOL LOZENGE PO SCH ×4 (08:51→20:56)
[2019-04-18] MEDS: FERROUS GLUCONATE 324 MG TAB PO SCH (08:51)
[2019-04-18] MEDS: METOPROLOL TART 12.5 MG PER 1/2 TAB PO SCH ×2 (08:51→20:57)
[2019-04-18] MEDS: BOUDREAUX'S BUTT PASTE TOP SCH ×2 (08:52→20:59)
--- NOTE | 2019-04-18 09:02 | IPNPDOC ---
PM&R Progress Note DATE OF SERVICE: Apr 18, 2019 [employer] Progress Note Subjective: Patient reports he did eat dinner last night and is not sure why his blood sugar dropped so low this morning. He feels better today and able to participate in therapy. REVIEW OF SYSTEMS: The following is a completed review of systems and has been reviewed. Review of systems otherwise unremarkable. PAIN: Patient self reports left residual and phantom limb pain EYES: poor vision EARS, NOSE, & THROAT:denies throat pain or dysphagia CARDIOVASCULAR: denies chest pain or palpitations PULMONARY: Negative. Denies shortness of breath GASTROINTESTINAL: +abdominal distension, denies constipation or diarrhea GENITOURINARY: Negative for dysuria MUSCULOSKELETAL: left AKA NEUROLOGICAL: +peripheral neuropathy HEMATOLOGICAL: +anemia SKIN: per [facility] records stage 3 sacral ulcer, left AKA incision PSYCHIATRIC: +schizophrenia All other review of systems found to be negative. PHYSICAL EXAMINATION: VITAL SIGNS: Please see below. GENERAL: Pleasant and cooperative. No acute distress. +glasses HEENT: PERRL. Extraocular movements intact. Clear conjunctiva CARDIOVASCULAR: Regular rate and rhythm. No murmurs, rubs, or gallops LUNGS: Clear to auscultation bilaterally. No wheezes. No rhonchi ABDOMEN: Soft, nontender, mildly-distended. hyperractive bowel sounds, no guarding NEUROLOGICAL: Alert and oriented times three. Cranial nerves II through XII grossly intact. Sensation grossly diminished to light touch in right foot and ankle EXTREMITIES: 5\5 strength bilateral upper extremities.5-\5 strength right hip flexor, knee extension, and knee flexion, 1/5 ankle DF and EHL left hip flexion 5-/5 SKIN: left AKA sutures c/d/i, sacral region and right buttock what appears to be a healed stage 2 ASSESSMENT:48-year-old M with past medical history of poorly controlled DM who presents status post left AKA for necrotizing fasciitis of the LLE with right sided foot drop PLAN: 1. Rehab: PT, OT, assess for DME, patient encouraged to have ramp built for mobility, able to hop a few feet on right foot with Rw 2. Neuro: severe diabetic neuropathy resulting in poor wound healing and right foot drop 3. Cardiac: tachycardia likely in the setting of CAD given longstanding hx of poorly controlled DM- c/u metoprolol, medicine consulted to follow 4. Resp: +bilateral PE diagnosed 03/29/19, on eliquis 5mg BID (known positive FOBT from [facility]), IVC filter placed 04/01/19 -encourage incentive spirometry 5. Endo: poorly controlled DM- c/u insulin coverage with ISS-will refer to outpatient Endocrinology -episode of hyperglycemia yesterday because he ate syrup with sugar, and hypoglycemic episdeo this morning, evening Levemir dose decreased 6. Vascular; s/p LLE necrotizing fasciitis requiring BKA followed by AKA- will need to f/u with vascular as outpatient 7. ID: c/u IV Zosyn per recs until 04/18/19-will order ID consult -throat pain, c/u lozenge and guaifenesin 8. Skin: change left limb dressing BID, monitor for infection, apply Zinc to sacrum BID 9. Pain: c/u tylenol, tramadol, and gabapentin 10. GI ppx: Protonix BID while on Eliquis with known GI bleed, Simethicone for gas- repeat FOBT negative 11. : monitor PVRs 12. vascular: concerned for vascular disease in RLE given weak pedal pulses- underwent arterial US 04/16/19 showing no stenosis with CORBY 1.2, vascular consulted and recs appreciated 13. Heme: anemia likely due to blood loss from recent surgery, known GI bleed, although source not determined at [facility], and chronic disease- inhouse FOBT negative, will consider Venofer or repeat transfusion (x1 transfusion on 04/15/19), however Hgb slowly improving 12. Dispo: TBD Allergies Coded Allergies: Penicillins (Verified Allergy, Mild, UNKNOWN CHILDHOOD REACTION, 04/14/19) HAS BEEN RECEIVING ZOSYN FOR AN EXTENDED INTERVAL WITH NO ISSUES; THEREFORE, NO LONGER A PCN ALLERGY CONCERN 04/14/19 Vital Signs Vital Signs Date Time Temp Pulse Resp B/P (MAP) Pulse Ox O2 Delivery O2 Flow Rate FiO2 04/18/19 08:51 88 115/66 04/18/19 05:00 96.6 85 96 Laboratory Data CBC/BMP Laboratory Tests 04/18/19 04:41 Red Blood Count 3.41 L, Mean Corpuscular Volume 87.7, Mean Corpuscular Hemoglobin 27.6, Mean Corpuscular Hemoglobin Concent 31.4 L, Red Cell Distribution Width 17.9 H, Neutrophils (%) (Auto) 47.3, Lymphocytes (%) (Auto) 37.5, Monocytes (%) (Auto) 10.4 H, Eosinophils (%) (Auto) 3.3 H, Basophils (%) (Auto) 1.1 H, Neutrophils # (Auto) 2.1, Lymphocytes # (Auto) 1.7, Monocytes # (Auto) 0.5, Eosinophils # (Auto) 0.2, Basophils # (Auto) 0.1, Calcium Level 8.9 Labs 24H Laboratory Tests 2 04/17/19 11:52: Bedside Glucose (Misc Panel) 376H 04/17/19 16:49: C-Reactive Protein, Quantitative 5.67H 04/17/19 17:27: Bedside Glucose (Misc Panel) 322H 04/17/19 19:54: Bedside Glucose (Misc Panel) 180H 04/18/19 04:30: Bedside Glucose (Misc Panel) 49L 04/18/19 04:41: Immature Granulocyte % (Auto) 0.4, White Blood Count 4.5, Red Blood Count 3.41L, Hemoglobin 9.4L, Hematocrit 29.9L, Mean Corpuscular Volume 87.7, Mean Corpuscular Hemoglobin 27.6, Mean Corpuscular Hemoglobin Concent 31.4L, Red Cell Distribution Width 17.9H, Platelet Count 415, Neutrophils (%) (Auto) 47.3, Lymphocytes (%) (Auto) 37.5, Monocytes (%) (Auto) 10.4H, Eosinophils (%) (Auto) 3.3H, Basophils (%) (Auto) 1.1H, Neutrophils # (Auto) 2.1, Lymphocytes # (Auto) 1.7, Monocytes # (Auto) 0.5, Eosinophils # (Auto) 0.2, Basophils # (Auto) 0.1, Nucleated Red Blood Cells % (auto) 0.0, Anion Gap 4L, Glomerular Filtration Rate > 60.0, Blood Urea Nitrogen 12, Creatinine 0.44L, Sodium Level 140, Potassium Level 3.5, Chloride Level 105, Carbon Dioxide Level 31, Calcium Level 8.9 04/18/19 05:09: Bedside Glucose (Misc Panel) 29*L 04/18/19 05:14: Bedside Glucose (Misc Panel) 45L 04/18/19 05:48: Bedside Glucose (Misc Panel) 50L 04/18/19 06:37: Bedside Glucose (Misc Panel) 111H Microbiology Microbiology 04/14/19 Stool Occult Blood (EMILIE) - Final, Complete Current Medications Current Medications Current Medications Acetaminophen (Tylenol Tab) 1,000 mg TID PO Last administered on 04/18/19 08:50; Start 04/14/19 at 21:00 Al Hydrox/Mg Hydrox/Simethicone (Mylanta) 30 ml Q4HP PRN PO DYSPEPSIA; Start 04/14/19 at 16:30 Albuterol Sulfate (Proventil, Ventolin Hfa) 2 puff Q4HP PRN INH SHORTNESS OF BREATH; Start 04/17/19 at 17:45 Apixaban (Eliquis) 5 mg BID PO Last administered on 04/18/19at 08:50; Start 04/14/19 at 21:00 Bisacodyl (Dulcolax Suppository) 10 mg DAILYPRN PRN AK CONSTIPATION; Start 04/14/19 at 16:30 Cetylpyridinium Chloride (Cepacol) 1 mike QID PO Last administered on 04/18/19at 08:51; Start 04/17/19 at 13:00 Cetylpyridinium Chloride (Cepacol) 2 mike Q4HP PRN PO COUGH; Start 04/17/19 at 02:45; Stop 04/17/19 at 13:48; Status DC Dextrose (Dextrose 50%) 25 ml ASDIRECTED PRN IV SEE LABEL COMMENTS Last administered on 04/18/19at 05:59; Start 04/14/19 at 16:45 Dextrose (Dextrose 50%) 50 ml STAT STAT IV ; Start 04/18/19 at 06:04; Stop 04/18/19 at 06:05; Status DC Docusate Sodium (Colace) 100 mg BID PO Last administered on 04/16/19at 20:25; Start 04/14/19 at 21:00; Stop 04/17/19 at 17:44; Status DC Ferrous Gluconate (Fergon) 324 mg DAILY PO Last administered on 04/18/19 08:51; Start 04/15/19 at 09:00 Gabapentin (Neurontin) 300 mg TID PO Last administered on 04/18/19 08:50; Start 04/14/19 at 21:00 Glucagon (Glucagon) 1 mg ASDIRECTED PRN SC SEE LABEL COMMENTS; Start 04/14/19 at 16:45 Glucose (Glucose) 16 GM ASDIRECTED PRN PO SEE LABEL COMMENTS; Start 04/14/19 at 16:45 Guaifenesin (Robitussin Tab) 400 mg BID PO Last administered on 04/18/19at 08:50; Start 04/17/19 at 09:00 Heparin Sodium (Heparin (Flush)) 200 units ASDIRECTED PRN IV SEE LABEL COMMENTS Last administered on 04/18/19at 06:01; Start 04/14/19 at 17:30 Heparin Sodium (Heparin (Flush)) 200 units PICC IV Last administered on 04/17/19at 17:37; Start 04/14/19 at 18:00 Home Med (Med Rec Complete!) ASDIRECTED XX ; Start 04/14/19 at 16:00; Stop 04/14/19 at 16:01; Status DC Insulin Detemir (Levemir Insulin) 30 units QHS SC ; Start 04/18/19 at 21:00 Insulin Detemir (Levemir Insulin) 60 units QHS SC ; Start 04/14/19 at 21:00; Stop 04/14/19 at 21:00; Status DC Insulin Detemir (Levemir Insulin) 62 units QHS SC Last administered on 04/17/19at 21:27; Start 04/14/19 at 21:00; Stop 04/18/19 at 06:03; Status DC Insulin Human Lispro (HumaLOG INSULIN) SEE PROTOCOL TABLE AC SC Last administered on 04/17/19at 17:37; Start 04/14/19 at 17:30 Insulin Human Lispro (HumaLOG INSULIN) SEE PROTOCOL TABLE QHS SC Last administered on 04/16/19at 20:22; Start 04/14/19 at 21:00 Magnesium Hydroxide (Milk Of Magnesia) 30 ml DAILYPRN PRN PO CONSTIPATION; Start 04/14/19 at 16:30 Metoprolol Tartrate (Lopressor) 12.5 mg BID PO Last administered on 04/15/19at 08:31; Start 04/14/19 at 21:00; Stop 04/15/19 at 14:59; Status DC Metoprolol Tartrate (Lopressor) 12.5 mg BID PO Last administered on 04/18/19 08:51; Start 04/17/19 at 21:00 Metoprolol Tartrate (Lopressor) 12.5 mg Q8H PO Last administered on 04/16/19 22:53; Start 04/15/19 at 22:00; Stop 04/17/19 at 10:01; Status DC Metoprolol Tartrate (Lopressor) 25 mg Q8H PO ; Start 04/15/19 at 14:00; Stop 04/15/19 at 15:12; Status DC Ondansetron HCl (ZOFRAN INJection) 4 mg Q6HP PRN IM NAUSEA; Start 04/14/19 at 16:30 Pantoprazole Sodium (Protonix) 40 mg BID PO Last administered on 04/18/19 08:51; Start 04/15/19 at 21:00 Pantoprazole Sodium (Protonix) 40 mg DAILY PO Last administered on 04/15/19 08:32; Start 04/15/19 at 09:00; Stop 04/15/19 at 15:58; Status DC Piperacillin Sod/ Tazobactam Sod 3.375 gm/Dextrose 50 ml @ 50 mls/hr Q6H IV Last administered on 04/17/19 12:46; Start 04/14/19 at 18:00; Stop 04/17/19 at 17:38; Status DC Senna (Senokot) 1 tab QHS PO Last administered on 04/16/19 20:24; Start 04/14/19 at 21:00 Simethicone (Mylicon) 80 mg TIDP PRN PO GAS PAIN; Start 04/14/19 at 16:45 Sodium Chloride (Saline Lock Flush) 10 ml ASDIRECTED PRN IV SEE LABEL COMMENTS Last administered on 04/18/19 06:01; Start 04/14/19 at 17:30 Sodium Chloride (Saline Lock Flush) 10 ml PICC IV Last administered on 04/18/19 05:09; Start 04/14/19 at 18:00 Tramadol HCl (Ultram) 50 mg Q4HP PRN PO MODERATE PAIN (PS 5-7) Last administered on 04/17/19 21:18; Start 04/14/19 at 16:45 Zinc Oxide (Boudreauxs Butt Paste) sacrum BID TOP Last administered on 6/7/19at 08:52; Start 04/15/19 at 21:00 ALEKSEY MUÑOZ MD Apr 18, 2019 09:02
[2019-04-18] MEDS: IPRATROPIUM 0.5MG/ALBUTEROL 2.5MG INH SOL UD 3ML (DUONEB)(J7620) NEB SCH ×2 (10:22→18:28)
[2019-04-18] MEDS: HumaLOG INSULIN (NovoLOG) PER UNIT SC SCH ×4 (10:35→20:55)
[2019-04-18 14:00] VITALS: BP 104/73
[2019-04-18 20:00] VITALS: BP 123/73
[2019-04-18] MEDS: LEVEMIR (INSULIN DETEMIR) 1 UNITS/0.01ML SC SCH (20:56)
[2019-04-18] MEDS: SENNA 8.6 MG TAB (SENOKOT) PO SCH (20:58)
--- NOTE | 2019-04-18 23:12 | IPNPDOC ---
Text Note Date of Service The patient was seen on 04/18/19. NOTE Pt was seen and examined at bedside. Pt reports no active medical symptom. General: Reports: Normal Appetite; Denies: Chills, Night Sweats, Fatigue, Malaise Constitutional: Denies: Chills, Fever, Night Sweats Eyes: Denies: Pain, Vision change ENT: Denies: Head Aches, Ear Pain, Dysphagia Skin: Denies: Rash, Lesions, Breakdown Pulmonary: Denies: Dyspnea, Cough Cardiovascular: Denies: Chest Pain, Palpitations, Orthopnea, Paroxysmal Noc. Dyspnea, Lt Headedness Gastrointestinal: Denies: Nausea, Vomiting, Abdominal Pain, Diarrhea, Constipation Genitourinary: Denies: Dysuria, Frequency, Incontinence, Retention Physical Examination General Exam: Positive: Alert, Cooperative, No Acute Distress Eye Exam: Positive: PERRLA, Conjunctiva & lids normal, EOMI ENT Exam: Positive: Atraumatic, Mucous membr. moist/pink, Tongue Midline Neck Exam: Positive: Supple; Negative: JVD, thyromegaly Chest Exam: Positive: Clear to auscultation, Normal air movement Heart Exam: Positive: Regular Rhythm Telemetry: Positive: No significant arrhythmia Abdomen Exam: Positive: Normal bowel sounds, Soft; Negative: Tenderness Male Exam: Positive: Normal Genital Exam Extremity Exam: Negative: Clubbing, Cyanosis, Edema Skin Exam: Positive: Nl turgor and temperature, Other skin issue (left AKA dressing dry and intact) Neuro Exam: Positive: Normal Speech, Cranial Nerves 3-12 NL Psych Exam: Positive: Mood NL, Oriented x 3 Vital Signs Date Time Temp Pulse Resp B/P (MAP) Pulse Ox O2 Delivery O2 Flow Rate FiO2 04/19/19 08:44 18 04/19/19 08:14 103 107/64 04/19/19 08:14 18 04/19/19 06:00 98.2 98 17 100/54 (69) 95 04/18/19 20:57 112 123/73 04/18/19 20:00 98.4 113 18 123/73 (90) 97 04/18/19 14:00 97.0 105 18 104/73 (83) 98 Intake & Output 04/19/19 06:00 Intake Total 2040 ml Output Total 2200 ml Balance -160 ml Laboratory Tests 04/18/19 16:34: Bedside Glucose (Misc Panel) 152H 04/18/19 20:05: Bedside Glucose (Misc Panel) 254H 04/19/19 02:58: Bedside Glucose (Misc Panel) 240H 04/19/19 06:14: Bedside Glucose (Misc Panel) 157H 04/19/19 11:22: Bedside Glucose (Misc Panel) 276H Microbiology 04/14/19 Stool Occult Blood (EMILIE) - Final, Complete Current Medications Medications (Trade) Dose Ordered Sig/Nathan Route PRN Reason Start Time Stop Time Status Last Admin Dose Admin Acetaminophen (Tylenol Tab) 1,000 mg TID PO 04/14/19 21:00 04/19/19 08:13 1,000 MG Albuterol/ Ipratropium (Duoneb (Ipr 0.5mg/Alb 2.5mg)) 3 ml RBID NEB 04/18/19 08:00 04/19/19 09:07 3 ML Apixaban (Eliquis) 5 mg BID PO 04/14/19 21:00 04/19/19 08:14 5 MG Cetylpyridinium Chloride (Cepacol) 1 dayne QID PO 04/17/19 13:00 04/19/19 12:24 1 DAYNE Dextrose (Dextrose 50%) 25 ml ASDIRECTED PRN IV SEE LABEL COMMENTS 04/14/19 16:45 04/18/19 05:59 50 ML Ferrous Gluconate (Fergon) 324 mg DAILY PO 04/15/19 09:00 04/19/19 08:13 324 MG Gabapentin (Neurontin) 300 mg TID PO 04/14/19 21:00 04/19/19 08:13 300 MG Guaifenesin (Robitussin Tab) 400 mg BID PO 04/17/19 09:00 04/19/19 08:13 400 MG Heparin Sodium (Heparin (Flush)) 200 units ASDIRECTED PRN IV SEE LABEL COMMENTS 04/14/19 17:30 04/18/19 06:01 200 UNITS Insulin Detemir (Levemir Insulin) 30 units QHS SC 04/18/19 21:00 04/18/19 20:56 30 UNITS Insulin Human Lispro (HumaLOG INSULIN) SEE PROTOCOL TABLE QHS SC 04/14/19 21:00 04/18/19 20:55 2 UNITS Metoprolol Tartrate (Lopressor) 12.5 mg BID PO 04/17/19 21:00 04/18/19 20:57 12.5 MG Pantoprazole Sodium (Protonix) 40 mg BID PO 04/15/19 21:00 04/19/19 08:14 40 MG Senna (Senokot) 1 tab QHS PO 04/14/19 21:00 04/16/19 20:24 1 TAB Sodium Chloride (Saline Lock Flush) 10 ml ASDIRECTED PRN IV SEE LABEL COMMENTS 04/14/19 17:30 04/18/19 06:01 10 ML Tramadol HCl (Ultram) 50 mg Q4HP PRN PO MODERATE PAIN (PS 5-7) 04/14/19 16:45 04/19/19 08:14 50 MG Zinc Oxide (Boudreauxs Butt Paste) sacrum BID TOP 04/15/19 21:00 04/19/19 08:15 1 DOSE Assessment Necrotizing Fascitis -S/P left BKA, then left AKA -S/P PICC for administration of Zosyn till 04/16/19 -continue to monitor for signs and symptoms of infectious process. Diabetes mellitus -Hemoglobin A1c 7.9 -Continue finger stick checks prior to meals and at bedtime -continue Lantus 62 units at bedtime -diabetic diet Anemia -S/P transfusion multiple units PRBC at other facility -Hemoglobin currently stable -stool for occult blood was also positive at another facility -Continued on Eliquis for recent PE/DVT Left common Femoral DVT/PE -provoked likely by infection and possible PAD/PVD -S/P IVC placement -continue Eliquis VS,Dax, I+O VS, Fishbone, I+O Laboratory Tests 04/18/19 04:41 Red Blood Count 3.41 L, Mean Corpuscular Volume 87.7, Mean Corpuscular Hemoglobin 27.6, Mean Corpuscular Hemoglobin Concent 31.4 L, Red Cell Dis tribution Width 17.9 H, Neutrophils (%) (Auto) 47.3, Lymphocytes (%) (Auto) 37.5, Monocytes (%) (Auto) 10.4 H, Eosinophils (%) (Auto) 3.3 H, Basophils (%) (Auto) 1.1 H, Neutrophils # (Auto) 2.1, Lymphocytes # (Auto) 1.7, Monocytes # (Auto) 0.5, Eosinophils # (Auto) 0.2, Basophils # (Auto) 0.1, Calcium Level 8.9 Vital Signs Date Time Temp Pulse Resp B/P (MAP) Pulse Ox O2 Delivery O2 Flow Rate FiO2 04/18/19 20:57 112 123/73 04/18/19 20:00 98.4 18 97 I&O- Last 24 Hours up to 6 AM 04/18/19 06:00 Intake Total 1990 ml Output Total 1350 ml Balance 640 ml TATIANA MAZARIEGOS MD Apr 18, 2019 23:12
[2019-04-19] MEDS: SODIUM CHLORIDE 0.9% INJ 10 ML SYR IV SCH ×2 (05:40→17:43)
[2019-04-19 06:00] VITALS: BP 100/54
[2019-04-19] MEDS: HumaLOG INSULIN (NovoLOG) PER UNIT SC SCH ×4 (08:12→20:16)
[2019-04-19] MEDS: CEPACOL LOZENGE PO SCH ×4 (08:13→22:20)
[2019-04-19] MEDS: FERROUS GLUCONATE 324 MG TAB PO SCH (08:13)
[2019-04-19] MEDS: ACETAMINOPHEN 500 MG TAB PO SCH ×3 (08:13→22:18)
[2019-04-19] MEDS: GABAPENTIN 300 MG CAP PO SCH ×3 (08:13→22:19)
[2019-04-19] MEDS: guaiFENesin 200 MG TAB PO SCH ×2 (08:13→22:20)
[2019-04-19] MEDS: METOPROLOL TART 12.5 MG PER 1/2 TAB PO SCH ×2 (08:14→22:20)
[2019-04-19] MEDS: APIXABAN 5 MG TAB (ELIQUIS) PO SCH ×2 (08:14→22:20)
[2019-04-19] MEDS: traMADol 50 MG TAB PO PRN ×3 (08:14→22:18)
[2019-04-19] MEDS: PANTOPRAZOLE 40MG TAB (PROTONIX) PO SCH ×2 (08:14→22:20)
[2019-04-19] MEDS: BOUDREAUX'S BUTT PASTE TOP SCH ×2 (08:15→22:22)
[2019-04-19] MEDS: IPRATROPIUM 0.5MG/ALBUTEROL 2.5MG INH SOL UD 3ML (DUONEB)(J7620) NEB SCH ×2 (09:07→19:56)
[2019-04-19 14:30] VITALS: BP 117/69
[2019-04-19 20:00] VITALS: BP 122/68
[2019-04-19] MEDS: SENNA 8.6 MG TAB (SENOKOT) PO SCH (22:19)
[2019-04-19] MEDS: LEVEMIR (INSULIN DETEMIR) 1 UNITS/0.01ML SC SCH (22:21)
[2019-04-19] MEDS: SODIUM CHLORIDE 0.9% INJ 10 ML SYR IV PRN (22:21)
[2019-04-20 06:00] VITALS: BP 119/74
[2019-04-20] MEDS: IPRATROPIUM 0.5MG/ALBUTEROL 2.5MG INH SOL UD 3ML (DUONEB)(J7620) NEB SCH ×2 (06:26→20:31)
[2019-04-20] MEDS: SODIUM CHLORIDE 0.9% INJ 10 ML SYR IV SCH ×2 (06:39→17:15)
[2019-04-20] MEDS: HumaLOG INSULIN (NovoLOG) PER UNIT SC SCH ×4 (07:37→20:11)
--- NOTE | 2019-04-20 08:09 | IPNPDOC ---
Text Note Date of Service The patient was seen on 04/19/19. NOTE Pt was seen and examined at bedside. Pt reports no active medical symptom. Pt reports would like to go out of floor accompanied by his brother. MD agreed to be out of bed . Denies any lightheadedness. Denies any dyspnea or tachypnea. Subjective: General: Reports: Normal Appetite; Denies: Chills, Night Sweats, Fatigue, Malaise Constitutional: Denies: Chills, Fever, Night Sweats Eyes: Denies: Pain, Vision change ENT: Denies: Head Aches, Ear Pain, Dysphagia Skin: Denies: Rash, Lesions, Breakdown Pulmonary: Denies: Dyspnea, Cough Cardiovascular: Denies: Chest Pain, Palpitations, Orthopnea, Paroxysmal Noc. Dyspnea, Lt Headedness Gastrointestinal: Denies: Nausea, Vomiting, Abdominal Pain, Diarrhea, Constipation Genitourinary: Denies: Dysuria, Frequency, Incontinence, Retention Physical Examination General Exam: Positive: Alert, Cooperative, No Acute Distress Eye Exam: Positive: PERRLA, Conjunctiva & lids normal, EOMI ENT Exam: Positive: Atraumatic, Mucous membr. moist/pink, Tongue Midline Neck Exam: Positive: Supple; Negative: JVD, thyromegaly Chest Exam: Positive: Clear to auscultation, Normal air movement Heart Exam: Positive: Regular Rhythm Telemetry: Positive: No significant arrhythmia Abdomen Exam: Positive: Normal bowel sounds, Soft; Negative: Tenderness Male Exam: Positive: Normal Genital Exam Extremity Exam: Negative: Clubbing, Cyanosis, Edema Skin Exam: Positive: Nl turgor and temperature, Other skin issue (left AKA dressing dry and intact) Neuro Exam: Positive: Normal Speech, Cranial Nerves 3-12 NL Psych Exam: Positive: Mood NL, Oriented x 3 Vital Signs Date Time Temp Pulse Resp B/P (MAP) Pulse Ox O2 Delivery O2 Flow Rate FiO2 04/20/19 06:00 97.6 100 17 119/74 (89) 96 04/19/19 23:37 16 04/19/19 22:20 119 122/68 04/19/19 22:18 14 04/19/19 20:00 99.2 119 18 122/68 (86) 95 04/19/19 16:15 18 04/19/19 14:30 98.6 110 18 117/69 (85) 97 04/19/19 08:14 103 107/64 04/19/19 08:14 18 Intake & Output 04/20/19 06:00 Intake Total 3120 ml Output Total 2775 ml Balance 345 ml Laboratory Tests 04/19/19 11:22: Bedside Glucose (Misc Panel) 276H 04/19/19 16:38: Bedside Glucose (Misc Panel) 172H 04/19/19 20:08: Bedside Glucose (Misc Panel) 238H 04/20/19 06:02: Bedside Glucose (Misc Panel) 199H Microbiology 04/14/19 Stool Occult Blood (EMILIE) - Final, Complete Current Medications Medications (Trade) Dose Ordered Sig/Nathan Route PRN Reason Start Time Stop Time Status Last Admin Dose Admin Acetaminophen (Tylenol Tab) 1,000 mg TID PO 04/14/19 21:00 04/19/19 22:18 1,000 MG Albuterol/ Ipratropium (Duoneb (Ipr 0.5mg/Alb 2.5mg)) 3 ml RBID NEB 04/18/19 08:00 04/20/19 06:26 3 ML Apixaban (Eliquis) 5 mg BID PO 04/14/19 21:00 04/19/19 22:20 5 MG Cetylpyridinium Chloride (Cepacol) 1 dayne QID PO 04/17/19 13:00 04/19/19 22:20 1 DAYNE Dextrose (Dextrose 50%) 25 ml ASDIRECTED PRN IV SEE LABEL COMMENTS 04/14/19 16:45 04/18/19 05:59 50 ML Ferrous Gluconate (Fergon) 324 mg DAILY PO 04/15/19 09:00 04/19/19 08:13 324 MG Gabapentin (Neurontin) 300 mg TID PO 04/14/19 21:00 04/19/19 22:19 300 MG Guaifenesin (Robitussin Tab) 400 mg BID PO 04/17/19 09:00 04/19/19 22:20 400 MG Heparin Sodium (Heparin (Flush)) 200 units ASDIRECTED PRN IV SEE LABEL COMMENTS 04/14/19 17:30 04/19/19 22:21 200 UNITS Insulin Detemir (Levemir Insulin) 30 units QHS SC 04/18/19 21:00 04/19/19 22:21 30 UNITS Insulin Human Lispro (HumaLOG INSULIN) SEE PROTOCOL TABLE QHS SC 04/14/19 21:00 04/18/19 20:55 2 UNITS Metoprolol Tartrate (Lopressor) 12.5 mg BID PO 04/17/19 21:00 04/19/19 22:20 12.5 MG Pantoprazole Sodium (Protonix) 40 mg BID PO 04/15/19 21:00 04/19/19 22:20 40 MG Senna (Senokot) 1 tab QHS PO 04/14/19 21:00 04/19/19 22:19 1 TAB Sodium Chloride (Saline Lock Flush) 10 ml ASDIRECTED PRN IV SEE LABEL COMMENTS 04/14/19 17:30 04/19/19 22:21 10 ML Tramadol HCl (Ultram) 50 mg Q4HP PRN PO MODERATE PAIN (PS 5-7) 04/14/19 16:45 04/19/19 22:18 50 MG Zinc Oxide (Boudreauxs Butt Paste) sacrum BID TOP 04/15/19 21:00 04/19/19 22:22 1 DOSE Assessment Necrotizing Fascitis -S/P left BKA, then left AKA -S/P PICC for administration of Zosyn till 04/16/19 -continue to monitor for signs and symptoms of infectious process. Diabetes mellitus -Hemoglobin A1c 7.9 -Continue finger stick checks prior to meals and at bedtime -continue Lantus 62 units at bedtime -diabetic diet Anemia -S/P transfusion multiple units PRBC at other facility -Hemoglobin currently stable -stool for occult blood was also positive at another facility -Continued on Eliquis for recent PE/DVT Left common Femoral DVT/PE -provoked likely by infection and possible PAD/PVD -S/P IVC placement -continue Eliquis Pt is clinically optimized, Rehabilitation plan as per primary team. VS,Fishbone, I+O VS, Fishbone, I+O Vital Signs Date Time Temp Pulse Resp B/P (MAP) Pulse Ox O2 Delivery O2 Flow Rate FiO2 04/20/19 06:00 97.6 100 17 119/74 (89) 96 I&O- Last 24 Hours up to 6 AM 04/20/19 06:00 Intake Total 3120 ml Output Total 2775 ml Balance 345 ml TATIANA MAZARIEGOS MD Apr 20, 2019 08:09
[2019-04-20] MEDS: FERROUS GLUCONATE 324 MG TAB PO SCH (08:44)
[2019-04-20] MEDS: CEPACOL LOZENGE PO SCH ×4 (08:44→20:10)
[2019-04-20] MEDS: GABAPENTIN 300 MG CAP PO SCH ×3 (08:44→20:09)
[2019-04-20] MEDS: PANTOPRAZOLE 40MG TAB (PROTONIX) PO SCH ×2 (08:44→20:09)
[2019-04-20] MEDS: APIXABAN 5 MG TAB (ELIQUIS) PO SCH ×2 (08:44→20:08)
[2019-04-20] MEDS: guaiFENesin 200 MG TAB PO SCH ×2 (08:45→20:09)
[2019-04-20] MEDS: ACETAMINOPHEN 500 MG TAB PO SCH ×3 (08:45→20:10)
[2019-04-20] MEDS: METOPROLOL TART 12.5 MG PER 1/2 TAB PO SCH ×2 (08:45→20:11)
[2019-04-20] MEDS: BOUDREAUX'S BUTT PASTE TOP SCH ×2 (08:49→20:12)
[2019-04-20] MEDS: traMADol 50 MG TAB PO PRN ×2 (11:07→20:18)
[2019-04-20 14:00] VITALS: BP 136/75
[2019-04-20 20:00] VITALS: BP 127/73
[2019-04-20] MEDS: SODIUM CHLORIDE 0.9% INJ 10 ML SYR IV PRN (20:09)
[2019-04-20] MEDS: SENNA 8.6 MG TAB (SENOKOT) PO SCH (20:09)
[2019-04-20] MEDS: LEVEMIR (INSULIN DETEMIR) 1 UNITS/0.01ML SC SCH (20:10)
[2019-04-21 04:45] VITALS: BP 132/75
[2019-04-21] MEDS: SODIUM CHLORIDE 0.9% INJ 10 ML SYR IV SCH ×2 (05:59→18:00)
[2019-04-21] MEDS: IPRATROPIUM 0.5MG/ALBUTEROL 2.5MG INH SOL UD 3ML (DUONEB)(J7620) NEB SCH ×2 (07:43→20:00)
[2019-04-21] MEDS: BOUDREAUX'S BUTT PASTE TOP SCH ×2 (09:00→22:20)
[2019-04-21] MEDS: GABAPENTIN 300 MG CAP PO SCH ×3 (09:15→22:18)
[2019-04-21] MEDS: guaiFENesin 200 MG TAB PO SCH ×2 (09:15→22:17)
[2019-04-21] MEDS: CEPACOL LOZENGE PO SCH ×4 (09:15→22:19)
[2019-04-21] MEDS: PANTOPRAZOLE 40MG TAB (PROTONIX) PO SCH ×2 (09:15→22:17)
[2019-04-21] MEDS: FERROUS GLUCONATE 324 MG TAB PO SCH (09:15)
[2019-04-21] MEDS: HumaLOG INSULIN (NovoLOG) PER UNIT SC SCH ×4 (09:15→22:19)
[2019-04-21] MEDS: APIXABAN 5 MG TAB (ELIQUIS) PO SCH ×2 (09:15→22:17)
[2019-04-21] MEDS: METOPROLOL TART 12.5 MG PER 1/2 TAB PO SCH ×2 (09:16→21:00)
[2019-04-21] MEDS: ACETAMINOPHEN 500 MG TAB PO SCH ×3 (09:17→22:17)
[2019-04-21] MEDS: traMADol 50 MG TAB PO PRN ×2 (12:36→22:18)
[2019-04-21 14:00] VITALS: BP 114/68
--- NOTE | 2019-04-21 15:57 | IPNPDOC ---
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 he is agreeable to a home visit this week to assess the safety of his living space. REVIEW OF SYSTEMS: The following is a completed review of systems and has been reviewed. Review of systems otherwise unremarkable. PAIN: Patient self reports left residual and phantom limb pain EYES: poor vision EARS, NOSE, & THROAT:denies throat pain or dysphagia CARDIOVASCULAR: denies chest pain or palpitations PULMONARY: Negative. Denies shortness of breath GASTROINTESTINAL: +abdominal distension, denies constipation or diarrhea GENITOURINARY: Negative for dysuria MUSCULOSKELETAL: left AKA NEUROLOGICAL: +peripheral neuropathy HEMATOLOGICAL: +anemia SKIN: per [facility] records stage 3 sacral ulcer, left AKA incision PSYCHIATRIC: +schizophrenia All other review of systems found to be negative. PHYSICAL EXAMINATION: VITAL SIGNS: Please see below. GENERAL: Pleasant and cooperative. No acute distress. +glasses HEENT: PERRL. Extraocular movements intact. Clear conjunctiva CARDIOVASCULAR: Regular rate and rhythm. No murmurs, rubs, or gallops LUNGS: Clear to auscultation bilaterally. No wheezes. No rhonchi ABDOMEN: Soft, nontender, mildly-distended. hyperractive bowel sounds, no guarding NEUROLOGICAL: Alert and oriented times three. Cranial nerves II through XII grossly intact. Sensation grossly diminished to light touch in right foot and ankle EXTREMITIES: 5\5 strength bilateral upper extremities.5-\5 strength right hip flexor, knee extension, and knee flexion, 1/5 ankle DF and EHL left hip flexion 5-/5 SKIN: left AKA sutures c/d/i, sacral region and right buttock what appears to be a healed stage 2 ASSESSMENT:48-year-old M with past medical history of poorly controlled DM who presents status post left AKA for necrotizing fasciitis of the LLE with right sided foot drop PLAN: 1. Rehab: PT, OT, assess for DME, patient encouraged to have ramp built for mobility, able to hop a few feet on right foot with RW, approaching Mod I from OT standpoint 2. Neuro: severe diabetic neuropathy resulting in poor wound healing and right foot drop 3. Cardiac: tachycardia likely in the setting of CAD given longstanding hx of poorly controlled DM- c/u metoprolol, medicine consulted to follow 4. Resp: +bilateral PE diagnosed 5/18/19, on eliquis 5mg BID (known positive FOBT from [facility]), IVC filter placed 04/01/19 -encourage incentive spirometry, receiving Duonebs, guaifenesin, and Flonase for cough and sinus congestion 5. Endo: poorly controlled DM- c/u insulin coverage with ISS-will refer to outpatient Endocrinology -episode of hyperglycemia yesterday because he ate syrup with sugar, and hypoglycemic episdeo this morning, evening Levemir dose decreased 6. Vascular; s/p LLE necrotizing fasciitis requiring BKA followed by AKA- will need to f/u with vascular as outpatient 7. ID: c/u IV Zosyn per recs until 04/18/19-will order ID consult -throat pain, c/u lozenge and guaifenesin 8. Skin: change left limb dressing BID, monitor for infection, apply Zinc to sacrum BID 9. Pain: c/u tylenol, tramadol, and gabapentin 10. GI ppx: Protonix BID while on Eliquis with known GI bleed, Simethicone for gas- repeat FOBT negative 11. : monitor PVRs 12. vascular: concerned for vascular disease in RLE given weak pedal pulses- underwent arterial US 04/16/19 showing no stenosis with CORBY 1.2, vascular consulted and recs appreciated 13. Heme: anemia likely due to blood loss from recent surgery, known GI bleed, although source not determined at [facility], and chronic disease- inhouse FOBT negative, will consider Venofer or repeat transfusion (x1 transfusion on 04/15/19), however Hgb slowly improving 12. Dispo: 04/25/19 to home, progressing slowly towards goals Allergies Coded Allergies: Penicillins (Verified Allergy, Mild, UNKNOWN CHILDHOOD REACTION, 04/14/19) HAS BEEN RECEIVING ZOSYN FOR AN EXTENDED INTERVAL WITH NO ISSUES; THEREFORE, NO LONGER A PCN ALLERGY CONCERN 04/14/19 Vital Signs Vital Signs Date Time Temp Pulse Resp B/P (MAP) Pulse Ox O2 Delivery O2 Flow Rate FiO2 04/21/19 14:00 98.0 112 18 114/68 (83) 98 Laboratory Data Labs 24H Laboratory Tests 2 04/20/19 16:32: Bedside Glucose (Misc Panel) 171H 04/20/19 19:56: Bedside Glucose (Misc Panel) 261H 04/21/19 05:47: Bedside Glucose (Misc Panel) 270H 04/21/19 12:25: Bedside Glucose (Misc Panel) 157H Microbiology Microbiology 04/14/19 Stool Occult Blood (EMILIE) - Final, Complete Current Medications Current Medications Current Medications Acetaminophen (Tylenol Tab) 1,000 mg TID PO Last administered on 04/21/19at 0 9:17; Start 04/14/19 at 21:00 Al Hydrox/Mg Hydrox/Simethicone (Mylanta) 30 ml Q4HP PRN PO DYSPEPSIA; Start 04/14/19 at 16:30 Albuterol Sulfate (Proventil, Ventolin Hfa) 2 puff Q4HP PRN INH SHORTNESS OF BREATH; Start 04/17/19 at 17:45 Albuterol/ Ipratropium (Duoneb (Ipr 0.5mg/Alb 2.5mg)) 3 ml RBID NEB Last administered on 04/21/19at 07:43; Start 04/18/19 at 08:00 Apixaban (Eliquis) 5 mg BID PO Last administered on 04/21/19at 09:15; Start 04/14/19 at 21:00 Bisacodyl (Dulcolax Suppository) 10 mg DAILYPRN PRN NC CONSTIPATION; Start 04/14/19 at 16:30 Cetylpyridinium Chloride (Cepacol) 1 mike QID PO Last administered on 04/21/19at 12:35; Start 04/17/19 at 13:00 Cetylpyridinium Chloride (Cepacol) 2 mike Q4HP PRN PO COUGH; Start 04/17/19 at 02:45; Stop 04/17/19 at 13:48; Status DC Dextrose (Dextrose 50%) 25 ml ASDIRECTED PRN IV SEE LABEL COMMENTS Last administered on 04/18/19at 05:59; Start 04/14/19 at 16:45 Dextrose (Dextrose 50%) 50 ml STAT STAT IV ; Start 04/18/19 at 06:04; Stop 04/18/19 at 06:05; Status DC Docusate Sodium (Colace) 100 mg BID PO Last administered on 04/16/19at 20:25; Start 04/14/19 at 21:00; Stop 04/17/19 at 17:44; Status DC Ferrous Gluconate (Fergon) 324 mg DAILY PO Last administered on 04/21/19at 09:15; Start 04/15/19 at 09:00 Gabapentin (Neurontin) 300 mg TID PO Last administered on 04/21/19at 09:15; Start 04/14/19 at 21:00 Glucagon (Glucagon) 1 mg ASDIRECTED PRN SC SEE LABEL COMMENTS; Start 04/14/19 at 16:45 Glucose (Glucose) 16 GM ASDIRECTED PRN PO SEE LABEL COMMENTS; Start 04/14/19 at 16:45 Guaifenesin (Robitussin Tab) 400 mg BID PO Last administered on 04/21/19at 09:15; Start 04/17/19 at 09:00 Heparin Sodium (Heparin (Flush)) 200 units ASDIRECTED PRN IV SEE LABEL COMMENTS Last administered on 04/20/19at 20:09; Start 04/14/19 at 17:30 Heparin Sodium (Heparin (Flush)) 200 units PICC IV Last administered on 04/21/19at 05:59; Start 04/14/19 at 18:00 Home Med (Med Rec Complete!) ASDIRECTED XX ; Start 04/14/19 at 16:00; Stop 04/14/19 at 16:01; Status DC Insulin Detemir (Levemir Insulin) 30 units QHS SC Last administered on 04/20/19at 20:10; Start 04/18/19 at 21:00 Insulin Detemir (Levemir Insulin) 60 units QHS SC ; Start 04/14/19 at 21:00; Sto p 04/14/19 at 21:00; Status DC Insulin Detemir (Levemir Insulin) 62 units QHS SC Last administered on 04/17/19at 21:27; Start 04/14/19 at 21:00; Stop 04/18/19 at 06:03; Status DC Insulin Human Lispro (HumaLOG INSULIN) SEE PROTOCOL TABLE AC SC Last administer ed on 04/21/19at 12:36; Start 04/14/19 at 17:30 Insulin Human Lispro (HumaLOG INSULIN) SEE PROTOCOL TABLE QHS SC Last administered on 04/20/19at 20:11; Start 04/14/19 at 21:00 Magnesium Hydroxide (Milk Of Magnesia) 30 ml DAILYPRN PRN PO CONSTIPATION; Start 04/14/19 at 16:30 Metoprolol Tartrate (Lopressor) 12.5 mg BID PO Last administered on 04/15/19 08:31; Start 04/14/19 at 21:00; Stop 04/15/19 at 14:59; Status DC Metoprolol Tartrate (Lopressor) 12.5 mg BID PO Last administered on 04/21/19 09:16; Start 04/17/19 at 21:00 Metoprolol Tartrate (Lopressor) 12.5 mg Q8H PO Last administered on 04/16/19 22:53; Start 04/15/19 at 22:00; Stop 04/17/19 at 10:01; Status DC Metoprolol Tartrate (Lopressor) 25 mg Q8H PO ; Start 04/15/19 at 14:00; Stop 04/15/19 at 15:12; Status DC Ondansetron HCl (ZOFRAN INJection) 4 mg Q6HP PRN IM NAUSEA; Start 04/14/19 at 16:30 Pantoprazole Sodium (Protonix) 40 mg BID PO Last administered on 04/21/19 09:15; Start 04/15/19 at 21:00 Pantoprazole Sodium (Protonix) 40 mg DAILY PO Last administered on 04/15/19 08:32; Start 04/15/19 at 09:00; Stop 04/15/19 at 15:58; Status DC Piperacillin Sod/ Tazobactam Sod 3.375 gm/Dextrose 50 ml @ 50 mls/hr Q6H IV Last administered on 04/17/19 12:46; Start 04/14/19 at 18:00; Stop 04/17/19 at 17:38; Status DC Senna (Senokot) 1 tab QHS PO Last administered on 04/20/19 20:09; Start 04/14/19 at 21:00 Simethicone (Mylicon) 80 mg TIDP PRN PO GAS PAIN; Start 04/14/19 at 16:45 Sodium Chloride (Saline Lock Flush) 10 ml ASDIRECTED PRN IV SEE LABEL COMMENTS Last administered on 04/20/19 20:09; Start 04/14/19 at 17:30 Sodium Chloride (Saline Lock Flush) 10 ml PICC IV Last administered on 04/21/19at 05:59; Start 04/14/19 at 18:00 Tramadol HCl (Ultram) 50 mg Q4HP PRN PO MODERATE PAIN (PS 5-7) Last administered on 04/21/19 12:36; Start 04/14/19 at 16:45 Zinc Oxide (Boudreauxs Butt Paste) sacrum BID TOP Last administered on 04/20/19at 20:12; Start 04/15/19 at 21:00 ALEKSEY MUÑOZ MD Apr 21, 2019 15:57
[2019-04-21] MEDS: SIMETHICONE 80 MG CHEW TAB PO SCH ×2 (16:53→22:19)
[2019-04-21 20:00] VITALS: BP 113/60
[2019-04-21] MEDS: SENNA 8.6 MG TAB (SENOKOT) PO SCH (21:00)
[2019-04-21] MEDS: FLUTICASONE PROP 0.05% NASAL SPRAY 16 GM (FLONASE) NARES SCH (22:20)
[2019-04-21] MEDS: LEVEMIR (INSULIN DETEMIR) 1 UNITS/0.01ML SC SCH (22:20)
--- NOTE | 2019-04-21 23:49 | IPNPDOC ---
Text Note Date of Service The patient was seen on 04/21/19. NOTE Pt was seen and examined at bedside. Pt reports no active medical symptom. Subjective: General: Reports: Normal Appetite; Denies: Chills, Night Sweats, Fatigue, Malaise Constitutional: Denies: Chills, Fever, Night Sweats Eyes: Denies: Pain, Vision change ENT: Denies: Head Aches, Ear Pain, Dysphagia Skin: Denies: Rash, Lesions, Breakdown Pulmonary: Denies: Dyspnea, Cough Cardiovascular: Denies: Chest Pain, Palpitations, Orthopnea, Paroxysmal Noc. Dyspnea, Lt Headedness Gastrointestinal: Denies: Nausea, Vomiting, Abdominal Pain, Diarrhea, Constipation Genitourinary: Denies: Dysuria, Frequency, Incontinence, Retention Physical Examination General Exam: Positive: Alert, Cooperative, No Acute Distress Eye Exam: Positive: PERRLA, Conjunctiva & lids normal, EOMI ENT Exam: Positive: Atraumatic, Mucous membr. moist/pink, Tongue Midline Neck Exam: Positive: Supple; Negative: JVD, thyromegaly Chest Exam: Positive: Clear to auscultation, Normal air movement Heart Exam: Positive: Regular Rhythm Telemetry: Positive: No significant arrhythmia Abdomen Exam: Positive: Normal bowel sounds, Soft; Negative: Tenderness Male Exam: Positive: Normal Genital Exam Extremity Exam: Negative: Clubbing, Cyanosis, Edema Skin Exam: Positive: Nl turgor and temperature, Other skin issue (left AKA dressing dry and intact) Neuro Exam: Positive: Normal Speech, Cranial Nerves 3-12 NL Psych Exam: Positive: Mood NL, Oriented x 3 Vital Signs Date Time Temp Pulse Resp B/P (MAP) Pulse Ox O2 Delivery O2 Flow Rate FiO2 04/20/19 06:00 97.6 100 17 119/74 (89) 96 04/19/19 23:37 16 04/19/19 22:20 119 122/68 04/19/19 22:18 14 04/19/19 20:00 99.2 119 18 122/68 (86) 95 04/19/19 16:15 18 04/19/19 14:30 98.6 110 18 117/69 (85) 97 04/19/19 08:14 103 107/64 04/19/19 08:14 18 Intake & Output 04/20/19 06:00 Intake Total 3120 ml Output Total 2775 ml Balance 345 ml Laboratory Tests 04/19/19 11:22: Bedside Glucose (Misc Panel) 276H 04/19/19 16:38: Bedside Glucose (Misc Panel) 172H 04/19/19 20:08: Bedside Glucose (Misc Panel) 238H 04/20/19 06:02: Bedside Glucose (Misc Panel) 199H Microbiology 04/14/19 Stool Occult Blood (EMILIE) - Final, Complete Current Medications Medications (Trade) Dose Ordered Sig/Nathan Route PRN Reason Start Time Stop Time Status Last Admin Dose Admin Acetaminophen (Tylenol Tab) 1,000 mg TID PO 04/14/19 21:00 04/19/19 22:18 1,000 MG Albuterol/ Ipratropium (Duoneb (Ipr 0.5mg/Alb 2.5mg)) 3 ml RBID NEB 04/18/19 08:00 04/20/19 06:26 3 ML Apixaban (Eliquis) 5 mg BID PO 04/14/19 21:00 04/19/19 22:20 5 MG Cetylpyridinium Chloride (Cepacol) 1 dayne QID PO 04/17/19 13:00 04/19/19 22:20 1 DAYNE Dextrose (Dextrose 50%) 25 ml ASDIRECTED PRN IV SEE LABEL COMMENTS 04/14/19 16:45 04/18/19 05:59 50 ML Ferrous Gluconate (Fergon) 324 mg DAILY PO 04/15/19 09:00 04/19/19 08:13 324 MG Gabapentin (Neurontin) 300 mg TID PO 04/14/19 21:00 04/19/19 22:19 300 MG Guaifenesin (Robitussin Tab) 400 mg BID PO 04/17/19 09:00 04/19/19 22:20 400 MG Heparin Sodium (Heparin (Flush)) 200 units ASDIRECTED PRN IV SEE LABEL COMMENTS 04/14/19 17:30 04/19/19 22:21 200 UNITS Insulin Detemir (Levemir Insulin) 30 units QHS SC 04/18/19 21:00 04/19/19 22:21 30 UNITS Insulin Human Lispro (HumaLOG INSULIN) SEE PROTOCOL TABLE QHS SC 04/14/19 21:00 04/18/19 20:55 2 UNITS Metoprolol Tartrate (Lopressor) 12.5 mg BID PO 04/17/19 21:00 04/19/19 22:20 12.5 MG Pantoprazole Sodium (Protonix) 40 mg BID PO 04/15/19 21:00 04/19/19 22:20 40 MG Senna (Senokot) 1 tab QHS PO 04/14/19 21:00 04/19/19 22:19 1 TAB Sodium Chloride (Saline Lock Flush) 10 ml ASDIRECTED PRN IV SEE LABEL COMMENTS 04/14/19 17:30 04/19/19 22:21 10 ML Tramadol HCl (Ultram) 50 mg Q4HP PRN PO MODERATE PAIN (PS 5-7) 04/14/19 16:45 04/19/19 22:18 50 MG Zinc Oxide (Boudreauxs Butt Paste) sacrum BID TOP 04/15/19 21:00 04/19/19 22:22 1 DOSE Assessment Necrotizing Fascitis -S/P left BKA, then left AKA -S/P PICC for administration of Zosyn till 04/16/19 -continue to monitor for signs and symptoms of infectious process. Diabetes mellitus -Hemoglobin A1c 7.9 -Continue finger stick checks prior to meals and at bedtime -continue Lantus 62 units at bedtime -diabetic diet Anemia -S/P transfusion multiple units PRBC at other facility -Hemoglobin currently stable -stool for occult blood was also positive at another facility -Continued on Eliquis for recent PE/DVT Left common Femoral DVT/PE -provoked likely by infection and possible PAD/PVD -S/P IVC placement -continue Eliquis Pt is clinically optimized, Rehabilitation plan as per primary team. VS,Fishbone, I+O VS, Fishbone, I+O Vital Signs Date Time Temp Pulse Resp B/P (MAP) Pulse Ox O2 Delivery O2 Flow Rate FiO2 04/21/19 22:48 18 04/21/19 21:00 100 110/60 04/21/19 20:00 98.6 95 I&O- Last 24 Hours up to 6 AM 04/21/19 06:00 Intake Total 1620 ml Output Total 1475 ml Balance 145 ml TATIANA MAZARIEGOS MD Apr 21, 2019 23:49
[2019-04-22 05:24] VITALS: BP 126/60
[2019-04-22] MEDS: IPRATROPIUM 0.5MG/ALBUTEROL 2.5MG INH SOL UD 3ML (DUONEB)(J7620) NEB SCH ×2 (07:07→20:19)
[2019-04-22 07:08] LABS: BASO % 0.7 % (0.0-1.0); EOS # 0.2 10^3/uL (0.0-0.50); EOS % 4.4 % (0.0-3.0); HEMOGLOBIN 9.7 g/dl (13.5-17.5); LYMPH # 1.5 10^3/uL (1.5-4.5); LYMPH % 26.6 % (24.0-44.0); MEAN CORPUSCULAR HEMOGLOBIN 27.8 pg (27.0-33.0); MEAN CORPUSCULAR HGB CONC 31.3 g/dl (32.0-36.5); MEAN CORPUSCULAR VOLUME 88.8 fl (80.0-96.0); MONO # 0.4 10^3/uL (0.0-0.8); MONO % 8.1 % (0.0-5.0); NEUTROPHILS # 3.3 10^3/uL (1.8-7.7); NEUTROPHILS % 59.7 % (36.0-66.0); PLATELET COUNT, AUTOMATED 370 10^3/uL (150-450); RED BLOOD COUNT 3.49 10^6/uL (4.30-6.10); WHITE BLOOD COUNT 5.5 10^3/uL (4.0-10.0)
[2019-04-22 07:34] LABS: BLOOD UREA NITROGEN 16 MG/DL (7-18); C REACTIVE PROTEIN QUANTITATIV 2.84 MG/DL (0.00-0.30); CARBON DIOXIDE LEVEL 29 MEQ/L (21-32); CHLORIDE LEVEL 102 MEQ/L (98-107); CREATININE FOR GFR 0.61 MG/DL (0.70-1.30); GLOMERULAR FILTRATION RATE > 60.0 (>60); GLUCOSE, FASTING 240 MG/DL (70-100); POTASSIUM SERUM 4.4 MEQ/L (3.5-5.1); SODIUM LEVEL 137 MEQ/L (136-145)
[2019-04-22] MEDS: CEPACOL LOZENGE PO SCH ×4 (08:30→21:52)
[2019-04-22] MEDS: GABAPENTIN 300 MG CAP PO SCH ×3 (08:30→21:54)
[2019-04-22] MEDS: APIXABAN 5 MG TAB (ELIQUIS) PO SCH ×2 (08:30→21:54)
[2019-04-22] MEDS: METOPROLOL TART 12.5 MG PER 1/2 TAB PO SCH ×2 (08:30→21:54)
[2019-04-22] MEDS: PANTOPRAZOLE 40MG TAB (PROTONIX) PO SCH ×2 (08:30→21:54)
[2019-04-22] MEDS: HumaLOG INSULIN (NovoLOG) PER UNIT SC SCH ×4 (08:30→21:00)
[2019-04-22] MEDS: FERROUS GLUCONATE 324 MG TAB PO SCH (08:30)
[2019-04-22] MEDS: SIMETHICONE 80 MG CHEW TAB PO SCH ×3 (08:30→21:54)
[2019-04-22] MEDS: guaiFENesin 200 MG TAB PO SCH ×2 (08:31→21:54)
[2019-04-22] MEDS: ACETAMINOPHEN 500 MG TAB PO SCH ×3 (08:34→21:53)
[2019-04-22] MEDS: BOUDREAUX'S BUTT PASTE TOP SCH ×2 (08:37→21:56)
[2019-04-22] MEDS: FLUTICASONE PROP 0.05% NASAL SPRAY 16 GM (FLONASE) NARES SCH ×2 (08:37→21:55)
[2019-04-22 14:00] VITALS: BP 130/66
[2019-04-22] MEDS: traMADol 50 MG TAB PO PRN (15:52)
--- NOTE | 2019-04-22 18:27 | IPNPDOC ---
PM&R Progress Note DATE OF SERVICE: Apr 22, 2019 President And Ce[employer] Progress Note Subjective: Patient reports he feels well and is not sure if he can get his home measurements in on time for therapy to assess the safety of his home. REVIEW OF SYSTEMS: The following is a completed review of systems and has been reviewed. Review of systems otherwise unremarkable. PAIN: Patient self reports left residual and phantom limb pain EYES: poor vision EARS, NOSE, & THROAT:denies throat pain or dysphagia CARDIOVASCULAR: denies chest pain or palpitations PULMONARY: Negative. Denies shortness of breath GASTROINTESTINAL: +abdominal distension, denies constipation or diarrhea GENITOURINARY: Negative for dysuria MUSCULOSKELETAL: left AKA NEUROLOGICAL: +peripheral neuropathy HEMATOLOGICAL: +anemia SKIN: per [facility] records stage 3 sacral ulcer, left AKA incision PSYCHIATRIC: +schizophrenia All other review of systems found to be negative. PHYSICAL EXAMINATION: VITAL SIGNS: Please see below. GENERAL: Pleasant and cooperative. No acute distress. +glasses HEENT: PERRL. Extraocular movements intact. Clear conjunctiva CARDIOVASCULAR: Regular rate and rhythm. No murmurs, rubs, or gallops LUNGS: Clear to auscultation bilaterally. No wheezes. No rhonchi ABDOMEN: Soft, nontender, mildly-distended. hyperractive bowel sounds, no guarding NEUROLOGICAL: Alert and oriented times three. Cranial nerves II through XII grossly intact. Sensation grossly diminished to light touch in right foot and ankle EXTREMITIES: 5\5 strength bilateral upper extremities.5-\5 strength right hip flexor, knee extension, and knee flexion, 1/5 ankle DF and EHL left hip flexion 5-/5 SKIN: left AKA sutures c/d/i, sacral region and right buttock what appears to be a healed stage 2 ASSESSMENT:48-year-old M with past medical history of poorly controlled DM who presents status post left AKA for necrotizing fasciitis of the LLE with right sided foot drop PLAN: 1. Rehab: PT, OT, assess for DME, patient encouraged to have ramp built for mobility, able to hop a few feet on right foot with RW, approaching Mod I from OT standpoint 2. Neuro: severe diabetic neuropathy resulting in poor wound healing and right foot drop 3. Cardiac: tachycardia likely in the setting of CAD given longstanding hx of poorly controlled DM- c/u metoprolol, medicine consulted to follow 4. Resp: +bilateral PE diagnosed 03/29/19, on eliquis 5mg BID (known positive FOBT from [facility]), IVC filter placed 04/01/19 -encourage incentive spirometry, receiving Duonebs, guaifenesin, and Flonase for cough and sinus congestion 5. Endo: poorly controlled DM- c/u insulin coverage with ISS-will refer to outpatient Endocrinology 6. Vascular; s/p LLE necrotizing fasciitis requiring BKA followed by AKA- will need to f/u with vascular as outpatient 7. ID: c/u IV Zosyn per recs until 04/18/19-will order ID consult -throat pain, c/u lozenge and guaifenesin-improving 8. Skin: change left limb dressing BID, monitor for infection, apply Zinc to sacrum BID 9. Pain: c/u tylenol, tramadol, and gabapentin 10. GI ppx: Protonix BID while on Eliquis with known GI bleed, c/u Simethicone for gas- repeat FOBT negative 11. : monitor PVRs 12. vascular: concerned for vascular disease in RLE given weak pedal pulses- und erwent arterial US 04/16/19 showing no stenosis with CORBY 1.2, vascular consulted and recs appreciated 13. Heme: anemia likely due to blood loss from recent surgery, known GI bleed, although source not determined at [facility], and chronic disease- inhouse FOBT negative, will consider Venofer or repeat transfusion (x1 transfusion on 04/15/19), however Hgb slowly improving 12. Dispo: 04/29/19 to home, progressing towards goals Allergies Coded Allergies: Penicillins (Verified Allergy, Mild, UNKNOWN CHILDHOOD REACTION, 04/14/19) HAS BEEN RECEIVING ZOSYN FOR AN EXTENDED INTERVAL WITH NO ISSUES; THEREFORE, NO LONGER A PCN ALLERGY CONCERN 04/14/19 Vital Signs Vital Signs Date Time Temp Pulse Resp B/P (MAP) Pulse Ox O2 Delivery O2 Flow Rate FiO2 04/22/19 15:52 18 04/22/19 08:30 100 126/60 04/22/19 05:24 97.9 98 Laboratory Data CBC/BMP Laboratory Tests 04/22/19 06:44 Red Blood Count 3.49 L, Mean Corpuscular Volume 88.8, Mean Corpuscular Hemoglobin 27.8, Mean Corpuscular Hemoglobin Concent 31.3 L, Red Cell Distribution Width 17.3 H, Neutrophils (%) (Auto) 59.7, Lymphocytes (%) (Auto) 26.6, Monocytes (%) (Auto) 8.1 H, Eosinophils (%) (Auto) 4.4 H, Basophils (%) (Auto) 0.7, Neutrophils # (Auto) 3.3, Lymphocytes # (Auto) 1.5, Monocytes # (Auto) 0.4, Eosinophils # (Auto) 0.2, Basophils # (Auto) 0.0, Calcium Level 9.0 Labs 24H Laboratory Tests 2 04/21/19 21:26: Bedside Glucose (Misc Panel) 281H 04/22/19 06:44: Immature Granulocyte % (Auto) 0.5, White Blood Count 5.5, Red Blood Count 3.49L, Hemoglobin 9.7L, Hematocrit 31.0L, Mean Corpuscular Volume 88.8, Mean Corpuscular Hemoglobin 27.8, Mean Corpuscular Hemoglobin Concent 31.3L, Red Cell Distribution Width 17.3H, Platelet Count 370, Neutrophils (%) (Auto) 59.7, Lymphocytes (%) (Auto) 26.6, Monocytes (%) (Auto) 8.1H, Eosinophils (%) (Auto) 4.4H, Basophils (%) (Auto) 0.7, Neutrophils # (Auto) 3.3, Lymphocytes # (Auto) 1.5, Monocytes # (Auto) 0.4, Eosinophils # (Auto) 0.2, Basophils # (Auto) 0.0, Nucleated Red Blood Cells % (auto) 0.0, Anion Gap 6L, Glomerular Filtration Rate > 60.0, Blood Urea Nitrogen 16, Creatinine 0.61L, Sodium Level 137, Potassium Level 4.4, Chloride Level 102, Carbon Dioxide Level 29, Calcium Level 9.0, C- Reactive Protein, Quantitative 2.84H 04/22/19 11:50: Bedside Glucose (Misc Panel) 366H 04/22/19 17:06: Bedside Glucose (Misc Panel) 248H Microbiology Microbiology 04/14/19 Stool Occult Blood (EMILIE) - Final, Complete Current Medications Current Medications Current Medications Acetaminophen (Tylenol Tab) 1,000 mg TID PO Last administered on 04/22/19at 15:51; Start 04/14/19 at 21:00 Al Hydrox/Mg Hydrox/Simethicone (Mylanta) 30 ml Q4HP PRN PO DYSPEPSIA; Start 04/14/19 at 16:30 Albuterol Sulfate (Proventil, Ventolin Hfa) 2 puff Q4HP PRN INH SHORTNESS OF BREATH; Start 04/17/19 at 17:45 Albuterol/ Ipratropium (Duoneb (Ipr 0.5mg/Alb 2.5mg)) 3 ml RBID NEB Last admi nistered on 04/22/19at 07:07; Start 04/18/19 at 08:00 Apixaban (Eliquis) 5 mg BID PO Last administered on 04/22/19 08:30; Start 04/14/19 at 21:00 Bisacodyl (Dulcolax Suppository) 10 mg DAILYPRN PRN [place] CONSTIPATION; Start 04/14/19 at 16:30 Cetylpyridinium Chloride (Cepacol) 1 mike QID PO Last administered on 04/22/19at 12:11; Start 04/17/19 at 13:00 Cetylpyridinium Chloride (Cepacol) 2 mike Q4HP PRN PO COUGH; Start 04/17/19 at 02:45; Stop 04/17/19 at 13:48; Status DC Dextrose (Dextrose 50%) 25 ml ASDIRECTED PRN IV SEE LABEL COMMENTS Last administered on 04/18/19at 05:59; Start 04/14/19 at 16:45 Dextrose (Dextrose 50%) 50 ml STAT STAT IV ; Start 04/18/19 at 06:04; Stop 04/18/19 at 06:05; Status DC Docusate Sodium (Colace) 100 mg BID PO Last administered on 04/16/19at 20:25; Start 04/14/19 at 21:00; Stop 04/17/19 at 17:44; Status DC Ferrous Gluconate (Fergon) 324 mg DAILY PO Last administered on 04/22/19at 08:30; Start 04/15/19 at 09:00 Fluticasone Propionate (Flonase 0.05% Nasal [place]) 1 SPRAY IN EACH NOSTRIL BID NARES Last administered on 04/22/19at 08:37; Start 04/21/19 at 21:00 Gabapentin (Neurontin) 300 mg TID PO Last administered on 04/22/19at 15:50; Start 04/14/19 at 21:00 Glucagon (Glucagon) 1 mg ASDIRECTED PRN SC SEE LABEL COMMENTS; Start 04/14/19 at 16:45 Glucose (Glucose) 16 GM ASDIRECTED PRN PO SEE LABEL COMMENTS; Start 04/14/19 at 16:45 Guaifenesin (Robitussin Tab) 400 mg BID PO Last administered on 04/22/19at 08:31; Start 04/17/19 at 09:00 Heparin Sodium (Heparin (Flush)) 200 units ASDIRECTED PRN IV SEE LABEL COMMENTS Last administered on 04/20/19at 20:09; Start 04/14/19 at 17:30; Stop 04/21/19 at 23:20; Status DC Heparin Sodium (Heparin (Flush)) 200 units PICC IV Last administered on 04/21/19at 05:59; Start 04/14/19 at 18:00; Stop 04/21/19 at 23:20; Status DC Home Med (Med Rec Complete!) ASDIRECTED XX ; Start 04/14/19 at 16:00; Stop 04/14/19 at 16:01; Status DC Insulin Detemir (Levemir Insulin) 30 units QHS SC Last administered on 04/21/19at 22:20; Start 04/18/19 at 21:00 Insulin Detemir (Levemir Insulin) 60 units QHS SC ; Start 04/14/19 at 21:00; Stop 04/14/19 at 21:00; Status DC Insulin Detemir (Levemir Insulin) 62 units QHS SC Last administered on 04/17/19at 21:27; Start 04/14/19 at 21:00; Stop 04/18/19 at 06:03; Status DC Insulin Human Lispro (HumaLOG INSULIN) SEE PROTOCOL TABLE AC SC Last administered on 04/22/19at 12:12; Start 04/14/19 at 17:30 Insulin Human Lispro (HumaLOG INSULIN) SEE PROTOCOL TABLE QHS SC Last administered on 04/21/19at 22:19; Start 04/14/19 at 21:00 Magnesium Hydroxide (Milk Of Magnesia) 30 ml DAILYPRN PRN PO CONSTIPATION; Start 04/14/19 at 16:30 Metoprolol Tartrate (Lopressor) 12.5 mg BID PO Last administered on 04/15/19 08:31; Start 04/14/19 at 21:00; Stop 04/15/19 at 14:59; Status DC Metoprolol Tartrate (Lopressor) 12.5 mg BID PO Last administered on 04/22/19 08:30; Start 04/17/19 at 21:00 Metoprolol Tartrate (Lopressor) 12.5 mg Q8H PO Last administered on 04/16/19 22:53; Start 04/15/19 at 22:00; Stop 04/17/19 at 10:01; Status DC Metoprolol Tartrate (Lopressor) 25 mg Q8H PO ; Start 04/15/19 at 14:00; Stop 04/15/19 at 15:12; Status DC Ondansetron HCl (ZOFRAN INJection) 4 mg Q6HP PRN IM NAUSEA; Start 04/14/19 at 16:30 Pantoprazole Sodium (Protonix) 40 mg BID PO Last administered on 04/22/19 08:30; Start 04/15/19 at 21:00 Pantoprazole Sodium (Protonix) 40 mg DAILY PO Last administered on 04/15/19 08:32; Start 04/15/19 at 09:00; Stop 04/15/19 at 15:58; Status DC Piperacillin Sod/ Tazobactam Sod 3.375 gm/Dextrose 50 ml @ 50 mls/hr Q6H IV Last administered on 04/17/19 12:46; Start 04/14/19 at 18:00; Stop 04/17/19 at 17:38; Status DC Senna (Senokot) 1 tab QHS PO Last administered on 04/20/19 20:09; Start 04/14/19 at 21:00 Simethicone (Mylicon) 80 mg TID PO Last administered on 04/22/19 15:50; Start 04/21/19 at 16:00 Simethicone (Mylicon) 80 mg TIDP PRN PO GAS PAIN; Start 04/14/19 at 16:45; Stop 04/21/19 at 15:54; Status DC Sodium Chloride (Saline Lock Flush) 10 ml ASDIRECTED PRN IV SEE LABEL COMMENTS Last administered on 6/9/19at 20:09; Start 04/14/19 at 17:30; Stop 04/21/19 at 23:20; Status DC Sodium Chloride (Saline Lock Flush) 10 ml PICC IV Last administered on 04/21/19at 05:59; Start 04/14/19 at 18:00; Stop 04/21/19 at 23:20; Status DC Tramadol HCl (Ultram) 50 mg Q4HP PRN PO MODERATE PAIN (PS 5-7) Last administered on 04/22/19at 15:52; Start 04/14/19 at 16:45 Zinc Oxide (Boudreauxs Butt Paste) sacrum BID TOP Last administered on 04/22/19 08:37; Start 04/15/19 at 21:00 ALEKSEY MUÑOZ MD Apr 22, 2019 18:27
[2019-04-22 20:00] VITALS: BP 128/76
[2019-04-22] MEDS: SENNA 8.6 MG TAB (SENOKOT) PO SCH (21:00)
[2019-04-22] MEDS: LEVEMIR (INSULIN DETEMIR) 1 UNITS/0.01ML SC SCH (21:55)
[2019-04-23 06:00] VITALS: BP 128/79
[2019-04-23] MEDS: HumaLOG INSULIN (NovoLOG) PER UNIT SC SCH ×4 (08:35→21:55)
[2019-04-23] MEDS: GABAPENTIN 300 MG CAP PO SCH ×3 (08:38→21:54)
[2019-04-23] MEDS: SIMETHICONE 80 MG CHEW TAB PO SCH ×3 (08:38→21:54)
[2019-04-23] MEDS: FERROUS GLUCONATE 324 MG TAB PO SCH (08:38)
[2019-04-23] MEDS: CEPACOL LOZENGE PO SCH ×4 (08:38→21:55)
[2019-04-23] MEDS: PANTOPRAZOLE 40MG TAB (PROTONIX) PO SCH ×2 (08:38→21:54)
[2019-04-23] MEDS: guaiFENesin 200 MG TAB PO SCH ×2 (08:38→21:53)
[2019-04-23] MEDS: APIXABAN 5 MG TAB (ELIQUIS) PO SCH ×2 (08:38→21:53)
[2019-04-23] MEDS: METOPROLOL TART 12.5 MG PER 1/2 TAB PO SCH ×2 (08:39→21:54)
[2019-04-23] MEDS: ACETAMINOPHEN 500 MG TAB PO SCH ×3 (08:39→21:54)
[2019-04-23] MEDS: BOUDREAUX'S BUTT PASTE TOP SCH ×2 (08:41→21:56)
[2019-04-23] MEDS: FLUTICASONE PROP 0.05% NASAL SPRAY 16 GM (FLONASE) NARES SCH ×2 (08:42→21:56)
[2019-04-23] MEDS: IPRATROPIUM 0.5MG/ALBUTEROL 2.5MG INH SOL UD 3ML (DUONEB)(J7620) NEB SCH ×2 (08:54→20:02)
--- NOTE | 2019-04-23 11:20 | IPNPDOC ---
PM&R Progress Note DATE OF SERVICE: Apr 23, 2019 Manager Of [employer] Progress Note Subjective: Patient seen in gym able to hop safely in the parallel bars, states his brother will get the home measurements today. REVIEW OF SYSTEMS: The following is a completed review of systems and has been reviewed. Review of systems otherwise unremarkable. PAIN: Patient self reports left residual and phantom limb pain EYES: poor vision EARS, NOSE, & THROAT:denies throat pain or dysphagia CARDIOVASCULAR: denies chest pain or palpitations PULMONARY: Negative. Denies shortness of breath GASTROINTESTINAL: +abdominal distension, denies constipation or diarrhea GENITOURINARY: Negative for dysuria MUSCULOSKELETAL: left AKA NEUROLOGICAL: +peripheral neuropathy HEMATOLOGICAL: +anemia SKIN: per [facility] records stage 3 sacral ulcer, left AKA incision PSYCHIATRIC: +schizophrenia All other review of systems found to be negative. PHYSICAL EXAMINATION: VITAL SIGNS: Please see below. GENERAL: Pleasant and cooperative. No acute distress. +glasses HEENT: PERRL. Extraocular movements intact. Clear conjunctiva CARDIOVASCULAR: Regular rate and rhythm. No murmurs, rubs, or gallops LUNGS: Clear to auscultation bilaterally. No wheezes. No rhonchi ABDOMEN: Soft, nontender, mildly-distended. hyperractive bowel sounds, no guarding NEUROLOGICAL: Alert and oriented times three. Cranial nerves II through XII grossly intact. Sensation grossly diminished to light touch in right foot and ankle EXTREMITIES: 5\5 strength bilateral upper extremities.5-\5 strength right hip flexor, knee extension, and knee flexion, 1/5 ankle DF and EHL left hip flexion 5-/5 SKIN: left AKA sutures c/d/i, sacral region and right buttock what appears to be a healed stage 2 ASSESSMENT:48-year-old M with past medical history of poorly controlled DM who presents status post left AKA for necrotizing fasciitis of the LLE with right sided foot drop PLAN: 1. Rehab: PT, OT, assess for DME, patient encouraged to have ramp built for mobility, able to hop a few feet on right foot with RW, approaching Mod I from OT standpoint 2. Neuro: severe diabetic neuropathy resulting in poor wound healing and right foot drop 3. Cardiac: tachycardia likely in the setting of CAD given longstanding hx of p oorly controlled DM- c/u metoprolol, medicine consulted to follow 4. Resp: +bilateral PE diagnosed 03/29/19, on eliquis 5mg BID (known positive FOBT from [facility]), IVC filter placed 04/01/19 -encourage incentive spirometry, receiving Duonebs, guaifenesin, and Flonase for cough and sinus congestion 5. Endo: poorly controlled DM- c/u insulin coverage with ISS-will refer to outpatient Endocrinology 6. Vascular; s/p LLE necrotizing fasciitis requiring BKA followed by [facility]- will need to f/u with vascular as outpatient 7. ID: c/u IV Zosyn per recs until 04/18/19-will order ID consult -throat pain, c/u lozenge and guaifenesin-improving 8. Skin: change left limb dressing BID, monitor for infection, apply Zinc to sacrum BID 9. Pain: c/u tylenol, tramadol, and gabapentin 10. GI ppx: Protonix BID while on Eliquis with known GI bleed, c/u Simethicone for gas- repeat FOBT negative 11. : monitor PVRs 12. vascular: concerned for vascular disease in RLE given weak pedal pulses- underwent arterial US 04/16/19 showing no stenosis with CORBY 1.2, vascular consulted and recs appreciated 13. Heme: anemia likely due to blood loss from recent surgery, known GI bleed, although source not determined at [facility], and chronic disease- inhouse FOBT negative, will consider Venofer or repeat transfusion (x1 transfusion on 04/15/19), however Hgb slowly improving 12. Dispo: 04/29/19 to home, progressing towards goals Allergies Coded Allergies: Penicillins (Verified Allergy, Mild, UNKNOWN CHILDHOOD REACTION, 04/14/19) HAS BEEN RECEIVING ZOSYN FOR AN EXTENDED INTERVAL WITH NO ISSUES; THEREFORE, NO LONGER A PCN ALLERGY CONCERN 04/14/19 Vital Signs Vital Signs Date Time Temp Pulse Resp B/P (MAP) Pulse Ox O2 Delivery O2 Flow Rate FiO2 04/23/19 08:39 89 128/79 04/23/19 06:00 98.4 18 98 Laboratory Data Labs 24H Laboratory Tests 2 04/22/19 11:50: Bedside Glucose (Misc Panel) 366H 04/22/19 17:06: Bedside Glucose (Misc Panel) 248H 04/22/19 20:20: Bedside Glucose (Misc Panel) 198H 04/23/19 06:31: Bedside Glucose (Misc Panel) 296H Microbiology Microbiology 04/14/19 Stool Occult Blood (EMILIE) - Final, Complete Current Medications Current Medications Current Medications Acetaminophen (Tylenol Tab) 1,000 mg TID PO Last administered on 04/23/19at 08:39; Start 04/14/19 at 21:00 Al Hydrox/Mg Hydrox/Simethicone (Mylanta) 30 ml Q4HP PRN PO DYSPEPSIA; Start 04/14/19 at 16:30 Albuterol Sulfate (Proventil, Ventolin Hfa) 2 puff Q4HP PRN INH SHORTNESS OF BREATH; Start 04/17/19 at 17:45 Albuterol/ Ipratropium (Duoneb (Ipr 0.5mg/Alb 2.5mg)) 3 ml RBID NEB Last administered on 04/23/19at 08:54; Start 04/18/19 at 08:00 Apixaban (Eliquis) 5 mg BID PO Last administered on 04/23/19 08:38; Start 04/14/19 at 21:00 Bisacodyl (Dulcolax Suppository) 10 mg DAILYPRN PRN [place] CONSTIPATION; Start 04/14/19 at 16:30 Cetylpyridinium Chloride (Cepacol) 1 mike QID PO Last administered on 04/23/19at 08:38; Start 04/17/19 at 13:00 Cetylpyridinium Chloride (Cepacol) 2 mike Q4HP PRN PO COUGH; Start 04/17/19 at 02:45; Stop 04/17/19 at 13:48; Status DC Dextrose (Dextrose 50%) 25 ml ASDIRECTED PRN IV SEE LABEL COMMENTS Last administered on 04/18/19at 05:59; Start 04/14/19 at 16:45 Dextrose (Dextrose 50%) 50 ml STAT STAT IV ; Start 04/18/19 at 06:04; Stop 04/18/19 at 06:05; Status DC Docusate Sodium (Colace) 100 mg BID PO Last administered on 04/16/19at 20:25; Start 04/14/19 at 21:00; Stop 04/17/19 at 17:44; Status DC Ferrous Gluconate (Fergon) 324 mg DAILY PO Last administered on 04/23/19 08:38; Start 04/15/19 at 09:00 Fluticasone Propionate (Flonase 0.05% Nasal [place]) 1 SPRAY IN EACH NOSTRIL BID NARES Last administered on 04/23/19 08:42; Start 04/21/19 at 21:00 Gabapentin (Neurontin) 300 mg TID PO Last administered on 04/23/19 08:38; Start 04/14/19 at 21:00 Glucagon (Glucagon) 1 mg ASDIRECTED PRN SC SEE LABEL COMMENTS; Start 04/14/19 at 16:45 Glucose (Glucose) 16 GM ASDIRECTED PRN PO SEE LABEL COMMENTS; Start 04/14/19 at 16:45 Guaifenesin (Robitussin Tab) 400 mg BID PO Last administered on 04/23/19 08:38; Start 04/17/19 at 09:00 Heparin Sodium (Heparin (Flush)) 200 units ASDIRECTED PRN IV SEE LABEL COMMENTS Last administered on 04/20/19 20:09; Start 04/14/19 at 17:30; Stop 04/21/19 at 23:20; Status DC Heparin Sodium (Heparin (Flush)) 200 units PICC IV Last administered on 04/21/19 05:59; Start 04/14/19 at 18:00; Stop 04/21/19 at 23:20; Status DC Home Med (Med Rec Complete!) ASDIRECTED XX ; Start 04/14/19 at 16:00; Stop 04/14/19 at 16:01; Status DC Insulin Detemir (Levemir Insulin) 30 units QHS SC Last administered on 04/22/19at 21:55; Start 04/18/19 at 21:00 Insulin Detemir (Levemir Insulin) 60 units QHS SC ; Start 04/14/19 at 21:00; Stop 04/14/19 at 21:00; Status DC Insulin Detemir (Levemir Insulin) 62 units QHS SC Last administered on 04/17/19 21:27; Start 04/14/19 at 21:00; Stop 04/18/19 at 06:03; Status DC Insulin Human Lispro (HumaLOG INSULIN) SEE PROTOCOL TABLE AC SC Last administered on 04/23/19at 08:35; Start 04/14/19 at 17:30 Insulin Human Lispro (HumaLOG INSULIN) SEE PROTOCOL TABLE QHS SC Last administered on 04/21/19at 22:19; Start 04/14/19 at 21:00 Magnesium Hydroxide (Milk Of Magnesia) 30 ml DAILYPRN PRN PO CONSTIPATION; Start 04/14/19 at 16:30 Metoprolol Tartrate (Lopressor) 12.5 mg BID PO Last administered on 04/15/19 08:31; Start 04/14/19 at 21:00; Stop 04/15/19 at 14:59; Status DC Metoprolol Tartrate (Lopressor) 12.5 mg BID PO Last administered on 04/23/19at 08:39; Start 04/17/19 at 21:00 Metoprolol Tartrate (Lopressor) 12.5 mg Q8H PO Last administered on 04/16/19at 22:53; Start 04/15/19 at 22:00; Stop 04/17/19 at 10:01; Status DC Metoprolol Tartrate (Lopressor) 25 mg Q8H PO ; Start 04/15/19 at 14:00; Stop 04/15/19 at 15:12; Status DC Ondansetron HCl (ZOFRAN INJection) 4 mg Q6HP PRN IM NAUSEA; Start 04/14/19 at 16:30 Pantoprazole Sodium (Protonix) 40 mg BID PO Last administered on 04/23/19at 08:38; Start 04/15/19 at 21:00 Pantoprazole Sodium (Protonix) 40 mg DAILY PO Last administered on 04/15/19at 08:32; Start 04/15/19 at 09:00; Stop 04/15/19 at 15:58; Status DC Piperacillin Sod/ Tazobactam Sod 3.375 gm/Dextrose 50 ml @ 50 mls/hr Q6H IV Last administered on 04/17/19 12:46; Start 04/14/19 at 18:00; Stop 04/17/19 at 17:38; Status DC Senna (Senokot) 1 tab QHS PO Last administered on 04/20/19at 20:09; Start 04/14/19 at 21:00 Simethicone (Mylicon) 80 mg TID PO Last administered on 04/23/19at 08:38; Start 04/21/19 at 16:00 Simethicone (Mylicon) 80 mg TIDP PRN PO GAS PAIN; Start 04/14/19 at 16:45; Stop 04/21/19 at 15:54; Status DC Sodium Chloride (Saline Lock Flush) 10 ml ASDIRECTED PRN IV SEE LABEL COMMENTS Last administered on 04/20/19 20:09; Start 04/14/19 at 17:30; Stop 04/21/19 at 23:20; Status DC Sodium Chloride (Saline Lock Flush) 10 ml PICC IV Last administered on 04/21/19at 05:59; Start 04/14/19 at 18:00; Stop 04/21/19 at 23:20; Status DC Tramadol HCl (Ultram) 50 mg Q4HP PRN PO MODERATE PAIN (PS 5-7) Last administe red on 04/22/19at 15:52; Start 04/14/19 at 16:45 Zinc Oxide (Boudreauxs Butt Paste) sacrum BID TOP Last administered on 04/23/19at 08:41; Start 04/15/19 at 21:00 ALEKSEY MUÑOZ MD Apr 23, 2019 11:20
[2019-04-23] MEDS: traMADol 50 MG TAB PO PRN (12:19)
[2019-04-23 14:00] VITALS: BP 122/68
[2019-04-23 20:00] VITALS: BP 124/66
[2019-04-23] MEDS: SENNA 8.6 MG TAB (SENOKOT) PO SCH (21:54)
[2019-04-23] MEDS: LEVEMIR (INSULIN DETEMIR) 1 UNITS/0.01ML SC SCH (21:55)
[2019-04-24] MEDS: traMADol 50 MG TAB PO PRN ×3 (00:49→21:28)
[2019-04-24 06:00] VITALS: BP 100/59
[2019-04-24] MEDS: IPRATROPIUM 0.5MG/ALBUTEROL 2.5MG INH SOL UD 3ML (DUONEB)(J7620) NEB SCH ×2 (08:00→20:00)
[2019-04-24] MEDS: BOUDREAUX'S BUTT PASTE TOP SCH ×2 (09:00→21:29)
[2019-04-24] MEDS ORDERED: LEVEMIR (INSULIN DETEMIR) 1 UNITS/0.01ML SC SCH (09:00)
[2019-04-24] MEDS: METOPROLOL TART 12.5 MG PER 1/2 TAB PO SCH ×2 (09:00→21:27)
[2019-04-24] MEDS: FERROUS GLUCONATE 324 MG TAB PO SCH (09:21)
[2019-04-24] MEDS: GABAPENTIN 300 MG CAP PO SCH ×3 (09:21→21:28)
[2019-04-24] MEDS: PANTOPRAZOLE 40MG TAB (PROTONIX) PO SCH ×2 (09:21→21:28)
[2019-04-24] MEDS: SIMETHICONE 80 MG CHEW TAB PO SCH ×3 (09:21→21:28)
[2019-04-24] MEDS: CEPACOL LOZENGE PO SCH ×4 (09:21→21:27)
[2019-04-24] MEDS: guaiFENesin 200 MG TAB PO SCH ×2 (09:22→21:27)
[2019-04-24] MEDS: ACETAMINOPHEN 500 MG TAB PO SCH ×3 (09:22→21:28)
[2019-04-24] MEDS: HumaLOG INSULIN (NovoLOG) PER UNIT SC SCH ×2 (09:22→12:24)
[2019-04-24] MEDS: APIXABAN 5 MG TAB (ELIQUIS) PO SCH ×2 (09:22→21:28)
[2019-04-24] MEDS: FLUTICASONE PROP 0.05% NASAL SPRAY 16 GM (FLONASE) NARES SCH ×2 (09:23→21:29)
--- NOTE | 2019-04-24 10:08 | IPNPDOC ---
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 REVIEW OF SYSTEMS: The following is a completed review of systems and has been reviewed. Review of systems otherwise unremarkable. PAIN: Patient self reports left residual and phantom limb pain EYES: poor vision EARS, NOSE, & THROAT:denies throat pain or dysphagia CARDIOVASCULAR: denies chest pain or palpitations PULMONARY: Negative. Denies shortness of breath GASTROINTESTINAL: +abdominal distension, denies constipation or diarrhea GENITOURINARY: Negative for dysuria MUSCULOSKELETAL: left AKA NEUROLOGICAL: +peripheral neuropathy HEMATOLOGICAL: +anemia SKIN: per [facility] records stage 3 sacral ulcer, left AKA incision PSYCHIATRIC: +schizophrenia All other review of systems found to be negative. PHYSICAL EXAMINATION: VITAL SIGNS: Please see below. GENERAL: Pleasant and cooperative. No acute distress. +glasses HEENT: PERRL. Extraocular movements intact. Clear conjunctiva CARDIOVASCULAR: Regular rate and rhythm. No murmurs, rubs, or gallops LUNGS: Clear to auscultation bilaterally. No wheezes. No rhonchi ABDOMEN: Soft, nontender, mildly-distended. hyperractive bowel sounds, no guarding NEUROLOGICAL: Alert and oriented times three. Cranial nerves II through XII grossly intact. Sensation grossly diminished to light touch in right foot and ankle EXTREMITIES: 5\5 strength bilateral upper extremities.5-\5 strength right hip flexor, knee extension, and knee flexion, 1/5 ankle DF and EHL left hip flexion 5-/5 SKIN: left AKA sutures c/d/i, sacral region and right buttock what appears to be a healed stage 2 ASSESSMENT:48-year-old M with past medical history of poorly controlled DM who presents status post left AKA for necrotizing fasciitis of the LLE with right sided foot drop PLAN: 1. Rehab: PT, OT, assess for DME, patient encouraged to have ramp built for mobility, able to hop a few feet on right foot with RW, approaching Mod I from OT standpoint 2. Neuro: severe diabetic neuropathy resulting in poor wound healing and right foot drop 3. Cardiac: tachycardia likely in the setting of CAD given longstanding hx of poorly controlled DM- c/u metoprolol, medicine consulted to follow 4. Resp: +bilateral PE diagnosed 03/29/19, on eliquis 5mg BID (known positive FOBT from [facility]), IVC filter placed 04/01/19 -encourage incentive spirometry, receiving Duonebs, guaifenesin, and Flonase for cough and sinus congestion 5. Endo: poorly controlled DM- c/u insulin coverage with ISS-will refer to outpatient Endocrinology 6. Vascular; s/p LLE necrotizing fasciitis requiring BKA followed by AKA- will need to f/u with vascular as outpatient-confirmed with Dr. 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 ID: c/u IV Zosyn per recs until 04/18/19-will order ID consult -throat pain, c/u lozenge and guaifenesin-improving 8. Skin: change left limb dressing BID, monitor for infection, apply Zinc to sacrum BID 9. Pain: c/u tylenol, tramadol, and gabapentin 10. GI ppx: Protonix BID while on Eliquis with known GI bleed, c/u Simethicone for gas- repeat FOBT negative 11. : monitor PVRs 12. vascular: concerned for vascular disease in RLE given weak pedal pulses- underwent arterial US 04/16/19 showing no stenosis with CORBY 1.2, vascular consulted and recs appreciated 13. Heme: anemia likely due to blood loss from recent surgery, known GI bleed, although source not determined at [facility], and chronic disease- inhouse FOBT negative, will consider Venofer or repeat transfusion (x1 transfusion on 04/15/19), however Hgb slowly improving 12. Dispo: 04/29/19 to home, progressing towards goals Allergies Coded Allergies: Penicillins (Verified Allergy, Mild, UNKNOWN CHILDHOOD REACTION, 04/14/19) HAS BEEN RECEIVING ZOSYN FOR AN EXTENDED INTERVAL WITH NO ISSUES; THEREFORE, NO LONGER A PCN ALLERGY CONCERN 04/14/19 Vital Signs Vital Signs Date Time Temp Pulse Resp B/P (MAP) Pulse Ox O2 Delivery O2 Flow Rate FiO2 04/24/19 09:00 106 100/59 04/24/19 06:00 99.2 19 96 Laboratory Data Labs 24H Laboratory Tests 2 04/23/19 11:26: Bedside Glucose (Misc Panel) 340H 04/23/19 16:35: Bedside Glucose (Misc Panel) 146H 04/23/19 21:01: Bedside Glucose (Misc Panel) 371H 04/24/19 06:23: Bedside Glucose (Misc Panel) 154H Microbiology Microbiology 04/14/19 Stool Occult Blood (EMILIE) - Final, Complete Current Medications Current Medications Current Medications Acetaminophen (Tylenol Tab) 1,000 mg TID PO Last administered on 04/24/19at 09:22; Start 04/14/19 at 21:00 Al Hydrox/Mg Hydrox/Simethicone (Mylanta) 30 ml Q4HP PRN PO DYSPEPSIA; Start 04/14/19 at 16:30 Albuterol Sulfate (Proventil, Ventolin Hfa) 2 puff Q4HP PRN INH SHORTNESS OF BREATH; Start 04/17/19 at 17:45 Albuterol/ Ipratropium (Duoneb (Ipr 0.5mg/Alb 2.5mg)) 3 ml RBID NEB Last administered on 04/23/19at 20:02; Start 04/18/19 at 08:00 Apixaban (Eliquis) 5 mg BID PO Last administered on 04/24/19at 09:22; Start 04/14/19 at 21:00 Bisacodyl (Dulcolax Suppository) 10 mg DAILYPRN PRN NC CONSTIPATION; Start 04/14/19 at 16:30 Cetylpyridinium Chloride (Cepacol) 1 mike QID PO Last administered on 04/24/19at 09:21; Start 04/17/19 at 13:00 Cetylpyridinium Chloride (Cepacol) 2 mike Q4HP PRN PO COUGH; Start 04/17/19 at 02:45; Stop 04/17/19 at 13:48; Status DC Dextrose (Dextrose 50%) 25 ml ASDIRECTED PRN IV SEE LABEL COMMENTS Last ad ministered on 04/18/19at 05:59; Start 04/14/19 at 16:45 Dextrose (Dextrose 50%) 50 ml STAT STAT IV ; Start 04/18/19 at 06:04; Stop 04/18/19 at 06:05; Status DC Docusate Sodium (Colace) 100 mg BID PO Last administered on 04/16/19at 20:25; Start 04/14/19 at 21:00; Stop 04/17/19 at 17:44; Status DC Ferrous Gluconate (Fergon) 324 mg DAILY PO Last administered on 04/24/19 09:21; Start 04/15/19 at 09:00 Fluticasone Propionate (Flonase 0.05% Nasal [place]) 1 SPRAY IN EACH NOSTRIL BID NARES Last administered on 04/24/19 09:23; Start 04/21/19 at 21:00 Gabapentin (Neurontin) 300 mg TID PO Last administered on 04/24/19 09:21; Start 04/14/19 at 21:00 Glucagon (Glucagon) 1 mg ASDIRECTED PRN SC SEE LABEL COMMENTS; Start 04/14/19 at 16:45 Glucose (Glucose) 16 GM ASDIRECTED PRN PO SEE LABEL COMMENTS; Start 04/14/19 at 16:45 Guaifenesin (Robitussin Tab) 400 mg BID PO Last administered on 04/24/19 09:2 2; Start 04/17/19 at 09:00 Heparin Sodium (Heparin (Flush)) 200 units ASDIRECTED PRN IV SEE LABEL COMMENTS Last administered on 04/20/19at 20:09; Start 04/14/19 at 17:30; Stop 04/21/19 at 23:20; Status DC Heparin Sodium (Heparin (Flush)) 200 units PICC IV Last administered on 04/21/19at 05:59; Start 04/14/19 at 18:00; Stop 04/21/19 at 23:20; Status DC Home Med (Med Rec Complete!) ASDIRECTED XX ; Start 04/14/19 at 16:00; Stop 04/14/19 at 16:01; Status DC Insulin Detemir (Levemir Insulin) 30 units QHS SC Last administered on 04/22/19at 21:55; Start 04/18/19 at 21:00; Stop 04/23/19 at 11:17; Status DC Insulin Detemir (Levemir Insulin) 40 units QHS SC Last administered on 04/23/19at 21:55; Start 04/23/19 at 21:00 Insulin Detemir (Levemir Insulin) 60 units QHS SC ; Start 04/14/19 at 21:00; Stop 04/14/19 at 21:00; Status DC Insulin Detemir (Levemir Insulin) 62 units QHS SC Last administered on 04/17/19 21:27; Start 04/14/19 at 21:00; Stop 04/18/19 at 06:03; Status DC Insulin Human Lispro (HumaLOG INSULIN) SEE PROTOCOL TABLE AC SC Last administered on 04/24/19at 09:22; Start 04/14/19 at 17:30 Insulin Human Lispro (HumaLOG INSULIN) SEE PROTOCOL TABLE QHS SC Last administered on 04/23/19at 21:55; Start 04/14/19 at 21:00 Magnesium Hydroxide (Milk Of Magnesia) 30 ml DAILYPRN PRN PO CONSTIPATION; Start 04/14/19 at 16:30 Metoprolol Tartrate (Lopressor) 12.5 mg BID PO Last administered on 04/15/19 08:31; Start 04/14/19 at 21:00; Stop 04/15/19 at 14:59; Status DC Metoprolol Tartrate (Lopressor) 12.5 mg BID PO Last administered on 04/23/19at 21:54; Start 04/17/19 at 21:00 Metoprolol Tartrate (Lopressor) 12.5 mg Q8H PO Last administered on 04/16/19at 22:53; Start 04/15/19 at 22:00; Stop 04/17/19 at 10:01; Status DC Metoprolol Tartrate (Lopressor) 25 mg Q8H PO ; Start 04/15/19 at 14:00; Stop 04/15/19 at 15:12; Status DC Ondansetron HCl (ZOFRAN INJection) 4 mg Q6HP PRN IM NAUSEA; Start 04/14/19 at 16:30 Pantoprazole Sodium (Protonix) 40 mg BID PO Last administered on 04/24/19at 09:21; Start 04/15/19 at 21:00 Pantoprazole Sodium (Protonix) 40 mg DAILY PO Last administered on 04/15/19at 08:32; Start 04/15/19 at 09:00; Stop 04/15/19 at 15:58; Status DC Piperacillin Sod/ Tazobactam Sod 3.375 gm/Dextrose 50 ml @ 50 mls/hr Q6H IV Last administered on 04/17/19at 12:46; Start 04/14/19 at 18:00; Stop 04/17/19 at 17:38; Status DC Senna (Senokot) 1 tab QHS PO Last administered on 04/23/19 21:54; Start 04/14/19 at 21:00 Simethicone (Mylicon) 80 mg TID PO Last administered on 04/24/19 09:21; Start 04/21/19 at 16:00 Simethicone (Mylicon) 80 mg TIDP PRN PO GAS PAIN; Start 04/14/19 at 16:45; Stop 04/21/19 at 15:54; Status DC Sodium Chloride (Saline Lock Flush) 10 ml ASDIRECTED PRN IV SEE LABEL COMMENTS Last administered on 04/20/19 20:09; Start 04/14/19 at 17:30; Stop 04/21/19 at 23:20; Status DC Sodium Chloride (Saline Lock Flush) 10 ml PICC IV Last administered on 04/21/19 05:59; Start 04/14/19 at 18:00; Stop 04/21/19 at 23:20; Status DC Tramadol HCl (Ultram) 50 mg Q4HP PRN PO MODERATE PAIN (PS 5-7) Last administered on 04/24/19 00:49; Start 04/14/19 at 16:45 Zinc Oxide (Boudreauxs Butt Paste) sacrum BID TOP Last administered on 04/23/19 21:56; Start 04/15/19 at 21:00 ALEKSEY MUÑOZ MD Apr 24, 2019 10:08
[2019-04-24 14:00] VITALS: BP 125/71
--- NOTE | 2019-04-24 14:51 | IPNPDOC ---
Subjective Date Seen The patient was seen on 04/24/19. Subjective Chief Complaint/HPI 48-year-old male with history of diabetes mellitus, poorly controlled recently treated for necrotizing fasciitis and subsequent left AKA transferred to this facility for rehabilitation therapy. Events since last encounter Has no complaints today. Denies chest pain, shortness of breath, dysuria. Has been tolerating therapy, still has a hard time with management of his left stump Objective Physical Examination General Exam: Positive: Alert, Cooperative, No Acute Distress Eye Exam: Positive: PERRLA, Conjunctiva & lids normal, EOMI ENT Exam: Positive: Atraumatic, Mucous membr. moist/pink, Tongue Midline Neck Exam: Positive: Supple; Negative: JVD, thyromegaly Chest Exam: Positive: Clear to auscultation, Normal air movement Heart Exam: Positive: Regular Rhythm Telemetry: Positive: No significant arrhythmia Abdomen Exam: Positive: Normal bowel sounds, Soft; Negative: Tenderness Male Exam: Positive: Normal Genital Exam Extremity Exam: Negative: Clubbing, Cyanosis, Edema Skin Exam: Positive: Nl turgor and temperature, Other skin issue (left AKA dressing dry and intact) Neuro Exam: Positive: Normal Speech, Cranial Nerves 3-12 NL Psych Exam: Positive: Mood NL, Oriented x 3 Assessment /Plan Assessment Necrotizing Fascitis -S/P left BKA, then left AKA for widespread gangrene to left extremity -has completed antibiotic therapy with Zosyn -continue to monitor for signs and symptoms of reoccurrence of infectious process Diabetes mellitus -patient has had fasting episodes of hypoglycemia with blood glucose in the 30s -Hemoglobin A1c 7.9 -Continue finger stick checks prior to meals and at bedtime -continue Lantus 62 units at bedtime -discontinue premeal insulin and start on Glucophage -continue diabetic diet Anemia -stable -S/P transfusion multiple units PRBC -Hemoglobin currently stable -stool for occult blood was also positive at another facility -GI evaluation if drop in Hgb on eliquis Left common Femoral DVT/PE -provoked likely by infection and possible PAD/PVD -S/P IVC placement -continue Eliquis Plan/VTE VTE Prophylaxis Ordered?: Yes VS, I&O, 24H, Fishbone Vital Signs/I&O Vital Signs Date Time Temp Pulse Resp B/P (MAP) Pulse Ox O2 Delivery O2 Flow Rate FiO2 04/24/19 12:24 18 04/24/19 09:00 106 100/59 04/24/19 06:00 99.2 96 I&O- Last 24 Hours up to 6 AM 04/24/19 06:00 Intake Total 2460 ml Output Total 1775 ml Balance 685 ml Laboratory Data 24H LABS Laboratory Tests 2 04/23/19 16:35: Bedside Glucose (Misc Panel) 146H 04/23/19 21:01: Bedside Glucose (Misc Panel) 371H 04/24/19 06:23: Bedside Glucose (Misc Panel) 154H 04/24/19 11:42: Bedside Glucose (Misc Panel) 150H Microbiology Microbiology 04/14/19 Stool Occult Blood (EMILIE) - Final, Complete HEYDI SUE [facility] Apr 24, 2019 14:51
[2019-04-24] MEDS: metFORMIN (GLUCOPHAGE) 500 MG TAB PO SCH (17:31)
[2019-04-24] MEDS ORDERED: metFORMIN (GLUCOPHAGE) 1000 MG TABLET PO SCH (18:00)
[2019-04-24 20:15] VITALS: BP 129/78
[2019-04-24] MEDS: LEVEMIR (INSULIN DETEMIR) 1 UNITS/0.01ML SC SCH (21:27)
[2019-04-24] MEDS: SENNA 8.6 MG TAB (SENOKOT) PO SCH (21:28)
[2019-04-25 05:00] VITALS: BP 149/82
[2019-04-25 06:09] LABS: HEMATOCRIT 28.6 % (42.0-52.0); MEAN CORPUSCULAR HEMOGLOBIN 27.8 pg (27.0-33.0); MEAN CORPUSCULAR HGB CONC 31.5 g/dl (32.0-36.5); MEAN CORPUSCULAR VOLUME 88.3 fl (80.0-96.0); PLATELET COUNT, AUTOMATED 306 10^3/uL (150-450); RED BLOOD COUNT 3.24 10^6/uL (4.30-6.10); WHITE BLOOD COUNT 4.9 10^3/uL (4.0-10.0)
[2019-04-25 06:30] LABS: BLOOD UREA NITROGEN 16 MG/DL (7-18); C REACTIVE PROTEIN QUANTITATIV 3.05 MG/DL (0.00-0.30); CALCIUM LEVEL 8.7 MG/DL (8.5-10.1); CARBON DIOXIDE LEVEL 31 MEQ/L (21-32); CHLORIDE LEVEL 104 MEQ/L (98-107); GLOMERULAR FILTRATION RATE > 60.0 (>60); GLUCOSE, FASTING 226 MG/DL (70-100); POTASSIUM SERUM 4.2 MEQ/L (3.5-5.1); SODIUM LEVEL 140 MEQ/L (136-145)
[2019-04-25 06:36] LABS: ERYTHROCYTE SEDIMENTATION RATE 107 mm/hr (0-15)
[2019-04-25] MEDS: guaiFENesin 200 MG TAB PO SCH ×2 (08:52→22:02)
[2019-04-25] MEDS: ACETAMINOPHEN 500 MG TAB PO SCH ×3 (08:53→22:03)
[2019-04-25] MEDS: CEPACOL LOZENGE PO SCH ×4 (08:53→22:02)
[2019-04-25] MEDS: APIXABAN 5 MG TAB (ELIQUIS) PO SCH ×2 (08:53→22:06)
[2019-04-25] MEDS: SIMETHICONE 80 MG CHEW TAB PO SCH ×3 (08:53→22:02)
[2019-04-25] MEDS: PANTOPRAZOLE 40MG TAB (PROTONIX) PO SCH ×2 (08:54→22:06)
[2019-04-25] MEDS: traMADol 50 MG TAB PO PRN ×2 (08:54→17:11)
[2019-04-25] MEDS: GABAPENTIN 300 MG CAP PO SCH ×3 (08:54→22:05)
[2019-04-25] MEDS: metFORMIN (GLUCOPHAGE) 500 MG TAB PO SCH ×2 (08:54→17:11)
[2019-04-25] MEDS: FERROUS GLUCONATE 324 MG TAB PO SCH (08:54)
[2019-04-25] MEDS: METOPROLOL TART 12.5 MG PER 1/2 TAB PO SCH ×2 (08:55→22:05)
[2019-04-25] MEDS: IPRATROPIUM 0.5MG/ALBUTEROL 2.5MG INH SOL UD 3ML (DUONEB)(J7620) NEB SCH ×2 (09:40→20:21)
[2019-04-25] MEDS: FLUTICASONE PROP 0.05% NASAL SPRAY 16 GM (FLONASE) NARES SCH ×2 (13:41→22:06)
[2019-04-25] MEDS: BOUDREAUX'S BUTT PASTE TOP SCH ×2 (13:42→21:00)
[2019-04-25 14:00] VITALS: BP 144/86
--- NOTE | 2019-04-25 17:26 | IPNPDOC ---
Subjective Date Seen The patient was not seen so note was cancelled Subjective Chief Complaint/HPI 48-year-old male with history of diabetes mellitus, poorly controlled recently treated for necrotizing fasciitis and subsequent left AKA transferred to this facility for rehabilitation therapy. Objective Physical Examination General Exam: Positive: Alert, Cooperative, No Acute Distress Eye Exam: Positive: PERRLA, Conjunctiva & lids normal, EOMI ENT Exam: Positive: Atraumatic, Mucous membr. moist/pink, Tongue Midline Neck Exam: Positive: Supple; Negative: JVD, thyromegaly Chest Exam: Positive: Clear to auscultation, Normal air movement Heart Exam: Positive: Regular Rhythm Telemetry: Positive: No significant arrhythmia Abdomen Exam: Positive: Normal bowel sounds, Soft; Negative: Tenderness Male Exam: Positive: Normal Genital Exam Extremity Exam: Negative: Clubbing, Cyanosis, Edema Skin Exam: Positive: Nl turgor and temperature, Other skin issue (left AKA dressing dry and intact) Neuro Exam: Positive: Normal Speech, Cranial Nerves 3-12 NL Psych Exam: Positive: Mood NL, Oriented x 3 Assessment /Plan Plan/VTE VTE Prophylaxis Ordered?: Yes VS, I&O, 24H, [facility] Vital Signs/I&O Vital Signs Date Time Temp Pulse Resp B/P (MAP) Pulse Ox O2 Delivery O2 Flow Rate FiO2 04/25/19 17:11 20 04/25/19 14:00 97.8 96 144/86 (105) 98 I&O- Last 24 Hours up to 6 AM 04/25/19 06:00 Intake Total 1920 ml Output Total 1650 ml Balance 270 ml Laboratory Data 24H LABS Laboratory Tests 2 04/24/19 20:20: Bedside Glucose (Misc Panel) 269H 04/25/19 05:45: Nucleated Red Blood Cells % (auto) 0.0, Erythrocyte Sedimentation Rate 107H, Anion Gap 5L, Glomerular Filtration Rate > 60.0, Blood Urea Nitrogen 16, Creatinine 0.60L, Sodium Level 140, Potassium Level 4.2, Chloride Level 104, Carbon Dioxide Level 31, Calcium Level 8.7, C-Reactive Protein, Quantitative 3.05H 04/25/19 11:57: Bedside Glucose (Misc Panel) 252H CBC/BMP Laboratory Tests 04/25/19 05:45 Red Blood Count 3.24 L, Mean Corpuscular Volume 88.3, Mean Corpuscular Hemoglobin 27.8, Mean Corpuscular Hemoglobin Concent 31.5 L, Red Cell Distribution Width 17.0 H, Calcium Level 8.7 HEYDI SUE. [facility] Apr 25, 2019 17:26
[2019-04-25 20:00] VITALS: BP 131/73
[2019-04-25] MEDS: SENNA 8.6 MG TAB (SENOKOT) PO SCH (21:00)
[2019-04-25] MEDS: LEVEMIR (INSULIN DETEMIR) 1 UNITS/0.01ML SC SCH (22:01)
[2019-04-26 05:19] VITALS: BP 118/75
[2019-04-26] MEDS: IPRATROPIUM 0.5MG/ALBUTEROL 2.5MG INH SOL UD 3ML (DUONEB)(J7620) NEB SCH ×2 (07:35→20:07)
[2019-04-26] MEDS: guaiFENesin 200 MG TAB PO SCH ×2 (08:23→21:51)
[2019-04-26] MEDS: metFORMIN (GLUCOPHAGE) 500 MG TAB PO SCH ×2 (08:23→17:13)
[2019-04-26] MEDS: APIXABAN 5 MG TAB (ELIQUIS) PO SCH ×2 (08:24→21:51)
[2019-04-26] MEDS: METOPROLOL TART 12.5 MG PER 1/2 TAB PO SCH ×2 (08:24→21:50)
[2019-04-26] MEDS: CEPACOL LOZENGE PO SCH ×4 (08:24→21:50)
[2019-04-26] MEDS: GABAPENTIN 300 MG CAP PO SCH ×3 (08:24→21:50)
[2019-04-26] MEDS: PANTOPRAZOLE 40MG TAB (PROTONIX) PO SCH ×2 (08:24→21:51)
[2019-04-26] MEDS: FERROUS GLUCONATE 324 MG TAB PO SCH (08:24)
[2019-04-26] MEDS: SIMETHICONE 80 MG CHEW TAB PO SCH ×3 (08:24→21:51)
[2019-04-26] MEDS: ACETAMINOPHEN 500 MG TAB PO SCH ×3 (08:24→21:50)
[2019-04-26] MEDS: BOUDREAUX'S BUTT PASTE TOP SCH ×2 (08:25→21:00)
[2019-04-26] MEDS: FLUTICASONE PROP 0.05% NASAL SPRAY 16 GM (FLONASE) NARES SCH ×2 (08:25→21:52)
--- NOTE | 2019-04-26 13:50 | IPNPDOC ---
Subjective Date Seen The patient was seen on 04/26/19. Subjective Chief Complaint/HPI 48-year-old male with history of diabetes mellitus, poorly controlled recently treated for necrotizing fasciitis and subsequent left AKA transferred to this facility for rehabilitation therapy. Events since last encounter We have discussed his current regimen for blood glucose control. Metformin dose will be increased to 1000mg BID for better control. He denies chest pain, chills, SOB Objective Physical Examination General Exam: Positive: Alert, Cooperative, No Acute Distress Eye Exam: Positive: PERRLA, Conjunctiva & lids normal, EOMI ENT Exam: Positive: Atraumatic, Mucous membr. moist/pink, Tongue Midline Neck Exam: Positive: Supple; Negative: JVD, thyromegaly Chest Exam: Positive: Clear to auscultation, Normal air movement Heart Exam: Positive: Regular Rhythm Telemetry: Positive: No significant arrhythmia Abdomen Exam: Positive: Normal bowel sounds, Soft; Negative: Tenderness Male Exam: Positive: Normal Genital Exam Extremity Exam: Negative: Clubbing, Cyanosis, Edema Skin Exam: Positive: Nl turgor and temperature, Other skin issue (left AKA dressing dry and intact) Neuro Exam: Positive: Normal Speech, Cranial Nerves 3-12 NL Psych Exam: Positive: Mood NL, Oriented x 3 Assessment /Plan Assessment Necrotizing Fascitis -S/P left BKA, then left AKA for widespread gangrene to left extremity -has completed antibiotic therapy with Zosyn -continue to monitor for signs and symptoms of reoccurrence of infectious process Diabetes mellitus -Hemoglobin A1c 7.9 -Continue finger stick checks prior to meals and at bedtime -continue Lantus 62 units at bedtime -continue Glucophage, increase dose to 1000BID -continue diabetic diet Anemia -stable -S/P transfusion multiple units PRBC -Hemoglobin currently stable -stool for occult blood was also positive at another facility -GI evaluation if drop in Hgb on eliquis Left common Femoral DVT/PE -provoked likely by infection and possible PAD/PVD -S/P IVC placement -continue Eliquis Plan/VTE VTE Prophylaxis Ordered?: Yes VS, I&O, 24H, Fishbone Vital Signs/I&O Vital Signs Date Time Temp Pulse Resp B/P (MAP) Pulse Ox O2 Delivery O2 Flow Rate FiO2 04/26/19 08:24 100 118/75 6/15/19 05:19 98.1 18 97 I&O- Last 24 Hours up to 6 AM 04/26/19 06:00 Intake Total 840 ml Output Total 2420 ml Balance -1580 ml Laboratory Data 24H LABS Laboratory Tests 2 04/25/19 16:24: Bedside Glucose (Misc Panel) 250H 04/25/19 20:09: Bedside Glucose (Misc Panel) 360H 04/26/19 06:22: Bedside Glucose (Misc Panel) 144H 04/26/19 12:06: Bedside Glucose (Misc Panel) 239H HEYDI SUE [facility] Apr 26, 2019 13:50
[2019-04-26 14:00] VITALS: BP 110/67
[2019-04-26 20:00] VITALS: BP 131/75
[2019-04-26] MEDS: SENNA 8.6 MG TAB (SENOKOT) PO SCH (21:00)
[2019-04-26] MEDS: LEVEMIR (INSULIN DETEMIR) 1 UNITS/0.01ML SC SCH (21:51)
[2019-04-27 05:22] VITALS: BP 129/72
[2019-04-27 06:57] LABS: HEMOGLOBIN 9.6 g/dl (13.5-17.5); MEAN CORPUSCULAR HEMOGLOBIN 26.5 pg (27.0-33.0); MEAN CORPUSCULAR VOLUME 85.6 fl (80.0-96.0); PLATELET COUNT, AUTOMATED 308 10^3/uL (150-450); RED BLOOD COUNT 3.62 10^6/uL (4.30-6.10); WHITE BLOOD COUNT 4.9 10^3/uL (4.0-10.0)
[2019-04-27 07:24] LABS: ALBUMIN 2.2 GM/DL (3.2-5.2); ALT/SGPT 24 U/L (12-78); BILIRUBIN,TOTAL 0.3 MG/DL (0.2-1.0); BLOOD UREA NITROGEN 20 MG/DL (7-18); CALCIUM LEVEL 9.3 MG/DL (8.5-10.1); CARBON DIOXIDE LEVEL 29 MEQ/L (21-32); CHLORIDE LEVEL 106 MEQ/L (98-107); CREATININE FOR GFR 0.46 MG/DL (0.70-1.30); GLOMERULAR FILTRATION RATE > 60.0 (>60); GLUCOSE, FASTING 112 MG/DL (70-100); MAGNESIUM LEVEL 1.7 MG/DL (1.8-2.4); SODIUM LEVEL 140 MEQ/L (136-145); TOTAL PROTEIN 7.4 GM/DL (6.4-8.2)
[2019-04-27] MEDS: GABAPENTIN 300 MG CAP PO SCH ×3 (07:43→20:37)
[2019-04-27] MEDS: PANTOPRAZOLE 40MG TAB (PROTONIX) PO SCH ×2 (07:43→20:38)
[2019-04-27] MEDS: FERROUS GLUCONATE 324 MG TAB PO SCH (07:43)
[2019-04-27] MEDS: SIMETHICONE 80 MG CHEW TAB PO SCH ×3 (07:43→20:39)
[2019-04-27] MEDS: CEPACOL LOZENGE PO SCH ×4 (07:43→20:39)
[2019-04-27] MEDS: APIXABAN 5 MG TAB (ELIQUIS) PO SCH ×2 (07:43→20:37)
[2019-04-27] MEDS: guaiFENesin 200 MG TAB PO SCH ×2 (07:43→20:38)
[2019-04-27] MEDS: metFORMIN (GLUCOPHAGE) 500 MG TAB PO SCH ×2 (07:43→17:19)
[2019-04-27] MEDS: ACETAMINOPHEN 500 MG TAB PO SCH ×3 (07:43→20:38)
[2019-04-27] MEDS: FLUTICASONE PROP 0.05% NASAL SPRAY 16 GM (FLONASE) NARES SCH ×2 (07:44→20:39)
[2019-04-27] MEDS: BOUDREAUX'S BUTT PASTE TOP SCH ×2 (07:44→20:39)
[2019-04-27] MEDS: METOPROLOL TART 12.5 MG PER 1/2 TAB PO SCH ×2 (07:44→20:38)
[2019-04-27] MEDS: IPRATROPIUM 0.5MG/ALBUTEROL 2.5MG INH SOL UD 3ML (DUONEB)(J7620) NEB SCH ×2 (08:00→20:12)
[2019-04-27] MEDS: traMADol 50 MG TAB PO PRN ×2 (10:55→20:48)
--- NOTE | 2019-04-27 13:34 | IPNPDOC ---
Subjective Date Seen The patient was seen on 04/27/19. Subjective Chief Complaint/HPI 48-year-old male with history of diabetes mellitus, poorly controlled recently treated for necrotizing fasciitis and subsequent left AKA transferred to this facility for rehabilitation therapy. Events since last encounter Complaints of pain to left stump today. Family at bedside. Denies chills, fever, chest pain, shortness of breath, dysuria Objective Physical Examination General Exam: Positive: Alert, Cooperative, No Acute Distress Eye Exam: Positive: PERRLA, Conjunctiva & lids normal, EOMI ENT Exam: Positive: Atraumatic, Mucous membr. moist/pink, Tongue Midline Neck Exam: Positive: Supple; Negative: JVD, thyromegaly Chest Exam: Positive: Clear to auscultation, Normal air movement Heart Exam: Positive: Regular Rhythm Telemetry: Positive: No significant arrhythmia Abdomen Exam: Positive: Normal bowel sounds, Soft; Negative: Tenderness Male Exam: Positive: Normal Genital Exam Extremity Exam: Negative: Clubbing, Cyanosis, Edema Skin Exam: Positive: Nl turgor and temperature, Other skin issue (left AKA dressing dry and intact) Neuro Exam: Positive: Normal Speech, Cranial Nerves 3-12 NL Psych Exam: Positive: Mood NL, Oriented x 3 Assessment /Plan Assessment Necrotizing Fascitis -S/P left BKA, then left AKA for widespread gangrene to left extremity -has completed antibiotic therapy with Zosyn -continue to monitor for signs and symptoms of reoccurrence of infectious process Diabetes mellitus -blood glucose improved with increasing metformin dose to 1000BID -Hemoglobin A1c 7.9 -Continue finger stick checks prior to meals and at bedtime -continue Lantus 62 units at bedtime -continue diabetic diet Anemia -S/P transfusion multiple units PRBC -Hemoglobin currently stable -stool for occult blood was also positive at another facility -GI evaluation if drop in Hgb on eliquis Left common Femoral DVT/PE -provoked likely by infection and possible PAD/PVD -S/P IVC placement -continue Eliquis Left Stump Pain -continue tramadol as needed Plan/VTE VTE Prophylaxis Ordered?: Yes VS, I&O, 24H, Fishbone Vital Signs/I&O Vital Signs Date Time Temp Pulse Resp B/P (MAP) Pulse Ox O2 Delivery O2 Flow Rate FiO2 04/27/19 10:55 16 6/16/19 07:44 103 129/72 04/27/19 05:22 98.0 96 I&O- Last 24 Hours up to 6 AM 04/27/19 06:00 Intake Total 2160 ml Output Total 2450 ml Balance -290 ml Laboratory Data 24H LABS Laboratory Tests 2 04/26/19 17:51: Bedside Glucose (Misc Panel) 303H 04/26/19 21:47: Bedside Glucose (Misc Panel) 228H 04/26/19 22:56: Bedside Glucose (Misc Panel) 224H 04/27/19 06:38: Nucleated Red Blood Cells % (auto) 0.0, Anion Gap 5L, Glomerular Filtration Rate > 60.0, Blood Urea Nitrogen 20H, Creatinine 0.46L, Sodium Level 140, Potassium Level 4.0, Chloride Level 106, Carbon Dioxide Level 29, Calcium Level 9.3, Aspartate Amino Transf (AST/SGOT) 12, Alanine Aminotransferase (ALT/SGPT) 24, Alkaline Phosphatase 126H, Total Bilirubin 0.3, Total Protein 7.4, Albumin 2.2L, Magnesium Level 1.7L, Albumin/Globulin Ratio 0.42L 04/27/19 12:01: Bedside Glucose (Misc Panel) 179H CBC/BMP Laboratory Tests 04/27/19 06:38 Red Blood Count 3.62 L, Mean Corpuscular Volume 85.6, Mean Corpuscular Hemoglobin 26.5 L, Mean Corpuscular Hemoglobin Concent 31.0 L, Red Cell Distribution Width 16.8 H, Calcium Level 9.3, Aspartate Amino Transf (AST/SGOT) 12, Alanine Aminotransferase (ALT/SGPT) 24, Alkaline Phosphatase 126 H, Total Bilirubin 0.3, Total Protein 7.4, Albumin 2.2 L HEYDI SUE [facility] Apr 27, 2019 13:34
[2019-04-27 14:00] VITALS: BP 125/74
[2019-04-27] MEDS: SENNA 8.6 MG TAB (SENOKOT) PO SCH (20:37)
[2019-04-27] MEDS: LEVEMIR (INSULIN DETEMIR) 1 UNITS/0.01ML SC SCH (20:37)
[2019-04-27 20:45] VITALS: BP 135/84
[2019-04-28 06:00] VITALS: BP 125/76
[2019-04-28] MEDS: BOUDREAUX'S BUTT PASTE TOP SCH ×2 (09:00→21:00)
[2019-04-28] MEDS: GABAPENTIN 300 MG CAP PO SCH ×3 (09:17→21:38)
[2019-04-28] MEDS: FERROUS GLUCONATE 324 MG TAB PO SCH (09:18)
[2019-04-28] MEDS: APIXABAN 5 MG TAB (ELIQUIS) PO SCH ×2 (09:18→21:38)
[2019-04-28] MEDS: ACETAMINOPHEN 500 MG TAB PO SCH ×3 (09:18→21:39)
[2019-04-28] MEDS: PANTOPRAZOLE 40MG TAB (PROTONIX) PO SCH ×2 (09:19→21:38)
[2019-04-28] MEDS: METOPROLOL TART 12.5 MG PER 1/2 TAB PO SCH ×2 (09:19→21:38)
[2019-04-28] MEDS: metFORMIN (GLUCOPHAGE) 500 MG TAB PO SCH ×2 (09:19→18:10)
[2019-04-28] MEDS: SIMETHICONE 80 MG CHEW TAB PO SCH ×3 (09:19→21:38)
[2019-04-28] MEDS: CEPACOL LOZENGE PO SCH ×4 (09:19→21:39)
[2019-04-28] MEDS: traMADol 50 MG TAB PO PRN ×2 (09:20→18:12)
[2019-04-28] MEDS: guaiFENesin 200 MG TAB PO SCH ×2 (09:20→21:39)
[2019-04-28] MEDS: FLUTICASONE PROP 0.05% NASAL SPRAY 16 GM (FLONASE) NARES SCH ×2 (09:21→21:39)
[2019-04-28] MEDS: IPRATROPIUM 0.5MG/ALBUTEROL 2.5MG INH SOL UD 3ML (DUONEB)(J7620) NEB SCH ×2 (11:20→20:27)
--- NOTE | 2019-04-28 12:28 | IPNPDOC ---
Subjective Date Seen The patient was seen on 04/28/19. Subjective Chief Complaint/HPI 48-year-old male with history of diabetes mellitus, poorly controlled recently treated for necrotizing fasciitis and subsequent left AKA transferred to this facility for rehabilitation therapy. Events since last encounter Has no complaints today, denies chest pain, denies SOB Objective Physical Examination General Exam: Positive: Alert, Cooperative, No Acute Distress Eye Exam: Positive: PERRLA, Conjunctiva & lids normal, EOMI ENT Exam: Positive: Atraumatic, Mucous membr. moist/pink, Tongue Midline Neck Exam: Positive: Supple; Negative: JVD, thyromegaly Chest Exam: Positive: Clear to auscultation, Normal air movement Heart Exam: Positive: Regular Rhythm Telemetry: Positive: No significant arrhythmia Abdomen Exam: Positive: Normal bowel sounds, Soft; Negative: Tenderness Male Exam: Positive: Normal Genital Exam Extremity Exam: Negative: Clubbing, Cyanosis, Edema Skin Exam: Positive: Nl turgor and temperature, Other skin issue (left AKA dressing dry and intact) Neuro Exam: Positive: Normal Speech, Cranial Nerves 3-12 NL Psych Exam: Positive: Mood NL, Oriented x 3 Assessment /Plan Assessment Necrotizing Fascitis -S/P left BKA, then left AKA for widespread gangrene to left extremity -has completed antibiotic therapy with Zosyn -continue to monitor for signs and symptoms of reoccurrence of infectious process Diabetes mellitus -Hemoglobin A1c 7.9 - finger stick checks prior to meals and at bedtime -Lantus 40 units at bedtime -continue Glucophage, 1000 BID -continue diabetic diet Anemia -stable -S/P transfusion multiple units PRBC -Hemoglobin currently stable -stool for occult blood was also positive at another facility -GI evaluation if drop in Hgb on eliquis Left common Femoral DVT/PE -provoked likely by infection and possible PAD/PVD -S/P IVC placement -continue Eliquis Plan/VTE VTE Prophylaxis Ordered?: Yes VS, I&O, 24H, Fishbone Vital Signs/I&O Vital Signs Date Time Temp Pulse Resp B/P (MAP) Pulse Ox O2 Delivery O2 Flow Rate FiO2 04/28/19 09:20 18 04/28/19 09:19 99 125/76 04/28/19 06:00 97.3 98 I&O- Last 24 Hours up to 6 AM 04/28/19 06:00 Intake Total 1920 ml Output Total 1925 ml Balance -5 ml Laboratory Data 24H LABS Laboratory Tests 2 04/27/19 16:52: Bedside Glucose (Misc Panel) 231H 04/27/19 20:36: Bedside Glucose (Misc Panel) 331H 04/28/19 06:30: Bedside Glucose (Misc Panel) 125H HEYDI SUE [facility] Apr 28, 2019 12:28
[2019-04-28 14:00] VITALS: BP 114/66
--- NOTE | 2019-04-28 19:55 | IPNPDOC ---
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 REVIEW OF SYSTEMS: The following is a completed review of systems and has been reviewed. Review of systems otherwise unremarkable. PAIN: Patient self reports left residual and phantom limb pain EYES: poor vision EARS, NOSE, & THROAT:denies throat pain or dysphagia CARDIOVASCULAR: denies chest pain or palpitations PULMONARY: Negative. Denies shortness of breath GASTROINTESTINAL: denies constipation or diarrhea GENITOURINARY: Negative for dysuria MUSCULOSKELETAL: left AKA NEUROLOGICAL: +peripheral neuropathy HEMATOLOGICAL: +anemia SKIN: per [facility] records stage 3 sacral ulcer, left AKA incision PSYCHIATRIC: +schizophrenia All other review of systems found to be negative. PHYSICAL EXAMINATION: VITAL SIGNS: Please see below. GENERAL: Pleasant and cooperative. No acute distress. +glasses HEENT: PERRL. Extraocular movements intact. Clear conjunctiva CARDIOVASCULAR: Regular rate and rhythm. No murmurs, rubs, or gallops LUNGS: Clear to auscultation bilaterally. No wheezes. No rhonchi ABDOMEN: Soft, nontender, mildly-distended. hyperractive bowel sounds, no guarding NEUROLOGICAL: Alert and oriented times three. Cranial nerves II through XII grossly intact. Sensation grossly diminished to light touch in right foot and ankle EXTREMITIES: 5\5 strength bilateral upper extremities.5-\5 strength right hip flexor, knee extension, and knee flexion, 1/5 ankle DF and EHL left hip flexion 5-/5 SKIN: left AKA sutures c/d/i, sacral region and right buttock what appears to be a healed stage 2 ASSESSMENT:48-year-old M with past medical history of poorly controlled DM who presents status post left AKA for necrotizing fasciitis of the LLE with right sided foot drop PLAN: 1. Rehab: PT, OT, assess for DME, patient encouraged to have ramp built for mobility, able to hop a few feet on right foot with RW, approaching Mod I from OT standpoint at wheelchair level 2. Neuro: severe diabetic neuropathy resulting in poor wound healing and right foot drop 3. Cardiac: tachycardia likely in the setting of CAD given longstanding hx of poorly controlled DM- c/u metoprolol, medicine consulted to follow 4. Resp: +bilateral PE diagnosed 03/29/19, on eliquis 5mg BID (known positive FOBT from [facility]), IVC filter placed 04/01/19 -encourage incentive spirometry, receiving Duonebs, guaifenesin, and Flonase for cough and sinus congestion 5. Endo: poorly controlled DM- c/u insulin coverage with ISS-will refer to outpatient Endocrinology 6. Vascular; s/p LLE necrotizing fasciitis requiring BKA followed by AKA- will need to f/u with vascular as outpatient-confirmed with Dr. Rigo toscano to fit for rehabilitation attendant- consulted video conference specialist, recs and rehabilitation attendant appreciated 7. ID: c/u IV Zosyn per recs until 04/18/19-will order ID consult -throat pain, c/u lozenge and guaifenesin-improving 8. Skin: change left limb dressing BID, monitor for infection, apply Zinc to sacrum BID 9. Pain: c/u tylenol, tramadol, and gabapentin 10. GI ppx: Protonix BID while on Eliquis with known GI bleed, c/u Simethicone for gas- repeat FOBT negative 11. : monitor PVRs 12. vascular: concerned for vascular disease in RLE given weak pedal pulses- underwent arterial US 04/16/19 showing no stenosis with CORBY 1.2, vascular consulted and recs appreciated 13. Heme: anemia likely due to blood loss from recent surgery, known GI bleed, although source not determined at [facility], and chronic disease- inhouse FOBT negative, will consider Venofer or repeat transfusion (x1 transfusion on 04/15/19), however Hgb slowly improving 12. Dispo: 04/29/19 to home, progressing towards goals DME needs: Patient will need a wheelchair for at least 6 months to complete his MRADLs in a timely manner. He is otherwise not able to complete his MRADLs without one. His home is wheelchair accessible, he is agreeable to using a wheelchair, and his caregiver also willing to help him use it. Allergies Coded Allergies: Penicillins (Verified Allergy, Mild, UNKNOWN CHILDHOOD REACTION, 04/14/19) HAS BEEN RECEIVING ZOSYN FOR AN EXTENDED INTERVAL WITH NO ISSUES; THEREFORE, NO LONGER A PCN ALLERGY CONCERN 04/14/19 Vital Signs Vital Signs Date Time Temp Pulse Resp B/P (MAP) Pulse Ox O2 Delivery O2 Flow Rate FiO2 04/28/19 18:12 18 04/28/19 14:00 98.6 109 114/66 (82 100 Laboratory Data Labs 24H Laboratory Tests 2 04/27/19 20:36: Bedside Glucose (Misc Panel) 331H 04/28/19 06:30: Bedside Glucose (Misc Panel) 125H 04/28/19 12:25: Bedside Glucose (Misc Panel) 207H 04/28/19 17:11: Bedside Glucose (Misc Panel) 276H Current Medications Current Medications Current Medications Acetaminophen (Tylenol Tab) 1,000 mg TID PO Last administered on 04/28/19at 18:11; Start 04/14/19 at 21:00 Al Hydrox/Mg Hydrox/Simethicone (Mylanta) 30 ml Q4HP PRN PO DYSPEPSIA; Start 04/14/19 at 16:30 Albuterol Sulfate (Proventil, Ventolin Hfa) 2 puff Q4HP PRN INH SHORTNESS OF BREATH; Start 04/17/19 at 17:45 Albuterol/ Ipratropium (Duoneb (Ipr 0.5mg/Alb 2.5mg)) 3 ml RBID NEB Last admi nistered on 04/28/19at 11:20; Start 04/18/19 at 08:00 Apixaban (Eliquis) 5 mg BID PO Last administered on 04/28/19at 09:18; Start 04/14/19 at 21:00 Bisacodyl (Dulcolax Suppository) 10 mg DAILYPRN PRN IA CONSTIPATION; Start 04/14/19 at 16:30 Cetylpyridinium Chloride (Cepacol) 1 mike QID PO Last administered on 04/28/19at 17:00; Start 04/17/19 at 13:00 Cetylpyridinium Chloride (Cepacol) 2 mike Q4HP PRN PO COUGH; Start 04/17/19 at 02:45; Stop 04/17/19 at 13:48; Status DC Dextrose (Dextrose 50%) 25 ml ASDIRECTED PRN IV SEE LABEL COMMENTS Last administered on 04/18/19at 05:59; Start 04/14/19 at 16:45 Dextrose (Dextrose 50%) 50 ml STAT STAT IV ; Start 04/18/19 at 06:04; Stop 04/18/19 at 06:05; Status DC Docusate Sodium (Colace) 100 mg BID PO Last administered on 04/16/19at 20:25; Start 04/14/19 at 21:00; Stop 04/17/19 at 17:44; Status DC Ferrous Gluconate (Fergon) 324 mg DAILY PO Last administered on 04/28/19at 09:18; Start 04/15/19 at 09:00 Fluticasone Propionate (Flonase 0.05% Nasal [place]) 1 SPRAY IN EACH NOSTRIL BID NARES Last administered on 04/28/19at 09:21; Start 04/21/19 at 21:00 Gabapentin (Neurontin) 300 mg TID PO Last administered on 04/28/19at 18:12; Start 04/14/19 at 21:00 Glucagon (Glucagon) 1 mg ASDIRECTED PRN SC SEE LABEL COMMENTS; Start 04/14/19 at 16:45 Glucose (Glucose) 16 GM ASDIRECTED PRN PO SEE LABEL COMMENTS; Start 04/14/19 at 16:45 Guaifenesin (Robitussin Tab) 400 mg BID PO Last administered on 04/28/19at 09:20; Start 04/17/19 at 09:00 Heparin Sodium (Heparin (Flush)) 200 units ASDIRECTED PRN IV SEE LABEL COMMENTS Last administered on 04/20/19at 20:09; Start 04/14/19 at 17:30; Stop 04/21/19 at 23:20; Status DC Heparin Sodium (Heparin (Flush)) 200 units PICC IV Last administered on 04/21/19at 05:59; Start 04/14/19 at 18:00; Stop 04/21/19 at 23:20; Status DC Home Med (Med Rec Complete!) ASDIRECTED XX ; Start 04/14/19 at 16:00; Stop 04/14/19 at 16:01; Status DC Insulin Detemir (Levemir Insulin) 5 units DAILY SC Last administered on 04/24/19at 12:24; Start 04/24/19 at 09:00; Stop 04/24/19 at 14:46; Status DC Insulin Detemir (Levemir Insulin) 30 units QHS SC Last administered on 04/22/19at 21:55; Start 04/18/19 at 21:00; Stop 04/23/19 at 11:17; Status DC Insulin Detemir (Levemir Insulin) 40 units QHS SC Last administered on 04/27/19at 20:37; Start 04/23/19 at 21:00 Insulin Detemir (Levemir Insulin) 60 units QHS SC ; Start 04/14/19 at 21:00; Stop 04/14/19 at 21:00; Status DC Insulin Detemir (Levemir Insulin) 62 units QHS SC Last administered on 04/17/19at 21:27; Start 04/14/19 at 21:00; Stop 04/18/19 at 06:03; Status DC Insulin Human Lispro (HumaLOG INSULIN) SEE PROTOCOL TABLE AC SC Last administered on 04/24/19at 12:24; Start 04/14/19 at 17:30; Stop 04/24/19 at 14:46; Status DC Insulin Human Lispro (HumaLOG INSULIN) SEE PROTOCOL TABLE QHS SC Last administered on 04/23/19at 21:55; Start 04/14/19 at 21:00; Stop 04/24/19 at 14:46; Status DC Magnesium Hydroxide (Milk Of Magnesia) 30 ml DAILYPRN PRN PO CONSTIPATION; Start 04/14/19 at 16:30; Stop 04/24/19 at 14:46; Status DC Metformin HCl (Glucophage) 500 mg BID@08,18 PO Last administered on 04/26/19at 08:23; Start 04/24/19 at 18:00; Stop 04/26/19 at 12:24; Status DC Metformin HCl (Glucophage) 1,000 mg BID@08,18 PO ; Start 04/24/19 at 18:00; Stop 04/24/19 at 18:00; Status DC Metformin HCl (Glucophage) 1,000 mg BID@08,18 PO Last administered on 04/28/19at 18:10; Start 04/26/19 at 18:00 Metoprolol Tartrate (Lopressor) 12.5 mg BID PO Last administered on 04/15/19at 08:31; Start 04/14/19 at 21:00; Stop 04/15/19 at 14:59; Status DC Metoprolol Tartrate (Lopressor) 12.5 mg BID PO Last administered on 04/28/19at 09:19; Start 04/17/19 at 21:00 Metoprolol Tartrate (Lopressor) 12.5 mg Q8H PO Last administered on 04/16/19 22:53; Start 04/15/19 at 22:00; Stop 04/17/19 at 10:01; Status DC Metoprolol Tartrate (Lopressor) 25 mg Q8H PO ; Start 04/15/19 at 14:00; Stop 04/15/19 at 15:12; Status DC Ondansetron HCl (ZOFRAN INJection) 4 mg Q6HP PRN IM NAUSEA; Start 04/14/19 at 16:30 Pantoprazole Sodium (Protonix) 40 mg BID PO Last administered on 04/28/19at 09:19; Start 04/15/19 at 21:00 Pantoprazole Sodium (Protonix) 40 mg DAILY PO Last administered on 04/15/19at 08:32; Start 04/15/19 at 09:00; Stop 04/15/19 at 15:58; Status DC Piperacillin Sod/ Tazobactam Sod 3.375 gm/Dextrose 50 ml @ 50 mls/hr Q6H IV Last administered on 04/17/19 12:46; Start 04/14/19 at 18:00; Stop 04/17/19 at 17:38; Status DC Senna (Senokot) 1 tab QHS PO Last administered on 04/27/19at 20:37; Start 04/14/19 at 21:00 Simethicone (Mylicon) 80 mg TID PO Last administered on 04/28/19at 18:12; Start 04/21/19 at 16:00 Simethicone (Mylicon) 80 mg TIDP PRN PO GAS PAIN; Start 04/14/19 at 16:45; Stop 04/21/19 at 15:54; Status DC Sodium Chloride (Saline Lock Flush) 10 ml ASDIRECTED PRN IV SEE LABEL COMMENTS Last administered on 04/20/19at 20:09; Start 04/14/19 at 17:30; Stop 04/21/19 at 23:20; Status DC Sodium Chloride (Saline Lock Flush) 10 ml PICC IV Last administered on 04/21/19at 05:59; Start 04/14/19 at 18:00; Stop 04/21/19 at 23:20; Status DC Tramadol HCl (Ultram) 50 mg Q4HP PRN PO MODERATE PAIN (PS 5-7) Last administered on 04/28/19at 18:12; Start 04/14/19 at 16:45 Zinc Oxide (Boudreauxs Butt Paste) sacrum BID TOP Last administered on 04/27/19at 07:44; Start 04/15/19 at 21:00 ALEKSEY MUÑOZ MD Apr 28, 2019 19:55
[2019-04-28] MEDS ORDERED: traMADol 50 MG TAB PO PRN (20:00)
[2019-04-28] MEDS: SENNA 8.6 MG TAB (SENOKOT) PO SCH (21:38)
[2019-04-28] MEDS: LEVEMIR (INSULIN DETEMIR) 1 UNITS/0.01ML SC SCH (21:39)
[2019-04-28 22:00] VITALS: BP 129/79
[2019-04-29 06:00] VITALS: BP 123/76
[2019-04-29 06:52] LABS: HEMATOCRIT 31.1 % (42.0-52.0); HEMOGLOBIN 9.8 g/dl (13.5-17.5); MEAN CORPUSCULAR HEMOGLOBIN 26.7 pg (27.0-33.0); MEAN CORPUSCULAR HGB CONC 31.5 g/dl (32.0-36.5); MEAN CORPUSCULAR VOLUME 84.7 fl (80.0-96.0); PLATELET COUNT, AUTOMATED 273 10^3/uL (150-450); RED BLOOD COUNT 3.67 10^6/uL (4.30-6.10); WHITE BLOOD COUNT 4.8 10^3/uL (4.0-10.0)
[2019-04-29 07:20] LABS: ALBUMIN 2.6 GM/DL (3.2-5.2); ALT/SGPT 26 U/L (12-78); BILIRUBIN,TOTAL 0.5 MG/DL (0.2-1.0); BLOOD UREA NITROGEN 20 MG/DL (7-18); CALCIUM LEVEL 8.9 MG/DL (8.5-10.1); CARBON DIOXIDE LEVEL 29 MEQ/L (21-32); CHLORIDE LEVEL 104 MEQ/L (98-107); CREATININE FOR GFR 0.54 MG/DL (0.70-1.30); GLOMERULAR FILTRATION RATE > 60.0 (>60); GLUCOSE, FASTING 87 MG/DL (70-100); POTASSIUM SERUM 4.2 MEQ/L (3.5-5.1); SODIUM LEVEL 137 MEQ/L (136-145); TOTAL PROTEIN 7.6 GM/DL (6.4-8.2)
[2019-04-29] MEDS: IPRATROPIUM 0.5MG/ALBUTEROL 2.5MG INH SOL UD 3ML (DUONEB)(J7620) NEB SCH ×2 (08:08→23:05)
[2019-04-29] MEDS: ACETAMINOPHEN 500 MG TAB PO SCH ×3 (08:48→20:28)
[2019-04-29] MEDS: CEPACOL LOZENGE PO SCH ×4 (08:48→20:28)
[2019-04-29] MEDS: SIMETHICONE 80 MG CHEW TAB PO SCH ×3 (08:48→20:28)
[2019-04-29] MEDS: metFORMIN (GLUCOPHAGE) 500 MG TAB PO SCH ×2 (08:48→17:35)
[2019-04-29] MEDS: FERROUS GLUCONATE 324 MG TAB PO SCH (08:48)
[2019-04-29] MEDS: METOPROLOL TART 12.5 MG PER 1/2 TAB PO SCH (08:49)
[2019-04-29] MEDS: FLUTICASONE PROP 0.05% NASAL SPRAY 16 GM (FLONASE) NARES SCH ×2 (08:49→20:30)
[2019-04-29] MEDS: PANTOPRAZOLE 40MG TAB (PROTONIX) PO SCH ×2 (08:49→20:29)
[2019-04-29] MEDS: GABAPENTIN 300 MG CAP PO SCH ×3 (08:49→20:29)
[2019-04-29] MEDS: APIXABAN 5 MG TAB (ELIQUIS) PO SCH ×2 (08:49→20:29)
[2019-04-29] MEDS: guaiFENesin 200 MG TAB PO SCH ×2 (08:49→20:28)
[2019-04-29] MEDS: BOUDREAUX'S BUTT PASTE TOP SCH ×2 (08:50→20:30)
--- NOTE | 2019-04-29 13:17 | IPNPDOC ---
Subjective Date Seen The patient was seen on 04/29/19. Subjective Chief Complaint/HPI 48-year-old male with history of diabetes mellitus, poorly controlled recently treated for necrotizing fasciitis and subsequent left AKA transferred to this facility for rehabilitation therapy. Events since last encounter Has no complaints today. seen during therapy. Objective Physical Examination General Exam: Positive: Alert, Cooperative, No Acute Distress Eye Exam: Positive: PERRLA, Conjunctiva & lids normal, EOMI ENT Exam: Positive: Atraumatic, Mucous membr. moist/pink, Tongue Midline Neck Exam: Positive: Supple; Negative: JVD, thyromegaly Chest Exam: Positive: Clear to auscultation, Normal air movement Heart Exam: Positive: Regular Rhythm Telemetry: Positive: No significant arrhythmia, Tachycardia Abdomen Exam: Positive: Normal bowel sounds, Soft; Negative: Tenderness Male Exam: Positive: Normal Genital Exam Extremity Exam: Negative: Clubbing, Cyanosis, Edema Skin Exam: Positive: Nl turgor and temperature, Other skin issue (left AKA d ressing dry and intact) Neuro Exam: Positive: Normal Speech, Cranial Nerves 3-12 NL Psych Exam: Positive: Mood NL, Oriented x 3 Assessment /Plan Assessment Necrotizing Fascitis -S/P left BKA, then left AKA for widespread gangrene to left extremity -has completed antibiotic therapy with Zosyn -continue to monitor for signs and symptoms of reoccurrence of infectious process Diabetes mellitus -Variably controlled -Hemoglobin A1c 7.9 -continue finger stick checks prior to meals and at bedtime -continue lantus at bedtime and glucophage -continue diabetic diet Anemia -stable -GI evaluation if drop in Hgb on Eliquis Left common Femoral DVT/PE -provoked likely by infection and possible PAD/PVD -S/P IVC placement -continue Eliquis Plan/VTE VTE Prophylaxis Ordered?: Yes VS, I&O, 24H, Fishbone Vital Signs/I&O Vital Signs Date Time Temp Pulse Resp B/P (MAP) Pulse Ox O2 Delivery O2 Flow Rate FiO2 04/29/19 08:49 106 123/76 04/29/19 06:00 98.1 22 96 I&O- Last 24 Hours up to 6 AM 04/29/19 06:00 Intake Total 2400 ml Output Total 1800 ml Balance 600 ml Laboratory Data 24H LABS Laboratory Tests 2 6/17/19 17:11: Bedside Glucose (Misc Panel) 276H 04/28/19 20:46: Bedside Glucose (Misc Panel) 251H 04/29/19 06:33: Nucleated Red Blood Cells % (auto) 0.0, Anion Gap 4L, Glomerular Filtration Rate > 60.0, Blood Urea Nitrogen 20H, Creatinine 0.54L, Sodium Level 137, Potassium Level 4.2, Chloride Level 104, Carbon Dioxide Level 29, Calcium Level 8.9, Aspartate Amino Transf (AST/SGOT) 15, Alanine Aminotransferase (ALT/SGPT) 26, Alkaline Phosphatase 125H, Total Bilirubin 0.5#, Total Protein 7.6, Albumin 2.6L, Albumin/Globulin Ratio 0.52L CBC/BMP Laboratory Tests 04/29/19 06:33 Red Blood Count 3.67 L, Mean Corpuscular Volume 84.7, Mean Corpuscular Hemoglobin 26.7 L, Mean Corpuscular Hemoglobin Concent 31.5 L, Red Cell Distribution Width 16.5 H, Calcium Level 8.9, Aspartate Amino Transf (AST/SGOT) 15, Alanine Aminotransferase (ALT/SGPT) 26, Alkaline Phosphatase 125 H, Total Bilirubin 0.5 #, Total Protein 7.6, Albumin 2.6 L HEYDI SUEP Apr 29, 2019 13:16
[2019-04-29 14:00] VITALS: BP 122/74
--- NOTE | 2019-04-29 14:29 | IPNPDOC ---
PM&R Progress Note DATE OF SERVICE: Apr 29, 2019 [employer] Progress Note Subjective: Patient seen in room and is eager to go home tomorrow after therapy. REVIEW OF SYSTEMS: The following is a completed review of systems and has been reviewed. Review of systems otherwise unremarkable. PAIN: Patient self reports left residual and phantom limb pain EYES: poor vision EARS, NOSE, & THROAT:denies throat pain or dysphagia CARDIOVASCULAR: denies chest pain or palpitations PULMONARY: Negative. Denies shortness of breath GASTROINTESTINAL: denies constipation or diarrhea GENITOURINARY: Negative for dysuria MUSCULOSKELETAL: left AKA NEUROLOGICAL: +peripheral neuropathy HEMATOLOGICAL: +anemia SKIN: per [facility] records stage 3 sacral ulcer, left AKA incision PSYCHIATRIC: +schizophrenia All other review of systems found to be negative. PHYSICAL EXAMINATION: VITAL SIGNS: Please see below. GENERAL: Pleasant and cooperative. No acute distress. +glasses HEENT: PERRL. Extraocular movements intact. Clear conjunctiva CARDIOVASCULAR: Regular rate and rhythm. No murmurs, rubs, or gallops LUNGS: Clear to auscultation bilaterally. No wheezes. No rhonchi ABDOMEN: Soft, nontender, mildly-distended. hyperractive bowel sounds, no guarding NEUROLOGICAL: Alert and oriented times three. Cranial nerves II through XII grossly intact. Sensation grossly diminished to light touch in right foot and ankle EXTREMITIES: 5\5 strength bilateral upper extremities.5-\5 strength right hip flexor, knee extension, and knee flexion, 1/5 ankle DF and EHL left hip flexion 5-/5 SKIN: left AKA sutures c/d/i, sacral region and right buttock what appears to be a healed stage 2 ASSESSMENT:48-year-old M with past medical history of poorly controlled DM who presents status post left AKA for necrotizing fasciitis of the LLE with right sided foot drop PLAN: 1. Rehab: PT, OT, assess for DME, patient encouraged to have ramp built for mobility, able to hop a few feet on right foot with RW, approaching Mod I from OT standpoint at wheelchair level 2. Neuro: severe diabetic neuropathy resulting in poor wound healing and right foot drop 3. Cardiac: tachycardia likely in the setting of CAD given longstanding hx of poorly controlled DM- c/u metoprolol, medicine consulted to follow 4. Resp: +bilateral PE diagnosed 03/29/19, on eliquis 5mg BID (known positive FOBT from [facility]), IVC filter placed 04/01/19 -encourage incentive spirometry, receiving Duonebs, guaifenesin, and Flonase for cough and sinus congestion 5. Endo: poorly controlled DM- c/u insulin coverage with ISS-will refer to outpatient Endocrinology 6. Vascular; s/p LLE necrotizing fasciitis requiring BKA followed by AKA- will need to f/u with vascular as outpatient-confirmed with Dr. Rigo toscano to fit for stiff neck loader- consulted insurance clerk, recs and stiff neck loader appreciated 7. ID: c/u IV Zosyn per recs until 04/18/19-will order ID consult -throat pain, c/u lozenge and guaifenesin-improving 8. Skin: change left limb dressing BID, monitor for infection, apply Zinc to sacrum BID 9. Pain: c/u tylenol, tramadol, and gabapentin 10. GI ppx: Protonix BID while on Eliquis with known GI bleed, c/u Simethicone for gas- repeat FOBT negative 11. : monitor PVRs 12. vascular: concerned for vascular disease in RLE given weak pedal pulses- underwent arterial US 04/16/19 showing no stenosis with CORBY 1.2, vascular co nsulted and recs appreciated 13. Heme: anemia likely due to blood loss from recent surgery, known GI bleed, although source not determined at [facility], and chronic disease- inhouse FOBT negative, will consider Venofer or repeat transfusion (x1 transfusion on 04/15/19), however Hgb slowly improving 12. Dispo: 04/30/19 to home, progressing towards goals DME needs: Patient will need a wheelchair for at least 6 months to complete his MRADLs in a timely manner. He is otherwise not able to complete his MRADLs without one. His home is wheelchair accessible, he is agreeable to using a wheelchair, and his c aregiver also willing to help him use it. Allergies Coded Allergies: Penicillins (Verified Allergy, Mild, UNKNOWN CHILDHOOD REACTION, 04/14/19) HAS BEEN RECEIVING ZOSYN FOR AN EXTENDED INTERVAL WITH NO ISSUES; THEREFORE, NO LONGER A PCN ALLERGY CONCERN 04/14/19 Vital Signs Vital Signs Date Time Temp Pulse Resp B/P (MAP) Pulse Ox O2 Delivery O2 Flow Rate FiO2 04/29/19 08:49 106 123/76 04/29/19 06:00 98.1 22 96 Laboratory Data CBC/BMP Laboratory Tests 04/29/19 06:33 Red Blood Count 3.67 L, Mean Corpuscular Volume 84.7, Mean Corpuscular Hemoglobin 26.7 L, Mean Corpuscular Hemoglobin Concent 31.5 L, Red Cell Distribution Width 16.5 H, Calcium Level 8.9, Aspartate Amino Transf (AST/SGOT) 15, Alanine Aminotransferase (ALT/SGPT) 26, Alkaline Phosphatase 125 H, Total Bilirubin 0.5 #, Total Protein 7.6, Albumin 2.6 L Labs 24H Laboratory Tests 2 04/28/19 17:11: Bedside Glucose (Misc Panel) 276H 04/28/19 20:46: Bedside Glucose (Misc Panel) 251H 04/29/19 06:33: Nucleated Red Blood Cells % (auto) 0.0, Anion Gap 4L, Glomerular Filtration Rate > 60.0, Blood Urea Nitrogen 20H, Creatinine 0.54L, Sodium Level 137, Potassium Level 4.2, Chloride Level 104, Carbon Dioxide Level 29, Calcium Level 8.9, Aspartate Amino Transf (AST/SGOT) 15, Alanine Aminotransferase (ALT/SGPT) 26, A lkaline Phosphatase 125H, Total Bilirubin 0.5#, Total Protein 7.6, Albumin 2.6L, Albumin/Globulin Ratio 0.52L Current Medications Current Medications Current Medications Acetaminophen (Tylenol Tab) 1,000 mg TID PO Last administered on 04/29/19at 08:48; Start 04/14/19 at 21:00 Al Hydrox/Mg Hydrox/Simethicone (Mylanta) 30 ml Q4HP PRN PO DYSPEPSIA; Start 04/14/19 at 16:30 Albuterol Sulfate (Proventil, Ventolin Hfa) 2 puff Q4HP PRN INH SHORTNESS OF BREATH; Start 04/17/19 at 17:45 Albuterol/ Ipratropium (Duoneb (Ipr 0.5mg/Alb 2.5mg)) 3 ml RBID NEB Last administered on 04/29/19at 08:08; Start 04/18/19 at 08:00 Apixaban (Eliquis) 5 mg BID PO Last administered on 04/29/19at 08:49; Start 04/14/19 at 21:00 Bisacodyl (Dulcolax Suppository) 10 mg DAILYPRN PRN [place] CONSTIPATION; Start 04/14/19 at 16:30 Cetylpyridinium Chloride (Cepacol) 1 mike QID PO Last administered on 04/29/19at 08:48; Start 04/17/19 at 13:00 Cetylpyridinium Chloride (Cepacol) 2 mike Q4HP PRN PO COUGH; Start 04/17/19 at 02:45; Stop 04/17/19 at 13:48; Status DC Dextrose (Dextrose 50%) 25 ml ASDIRECTED PRN IV SEE LABEL COMMENTS Last administered on 04/18/19 05:59; Start 04/14/19 at 16:45 Dextrose (Dextrose 50%) 50 ml STAT STAT IV ; Start 04/18/19 at 06:04; Stop 04/18/19 at 06:05; Status DC Docusate Sodium (Colace) 100 mg BID PO Last administered on 04/16/19at 20:25; Start 04/14/19 at 21:00; Stop 04/17/19 at 17:44; Status DC Ferrous Gluconate (Fergon) 324 mg DAILY PO Last administered on 04/29/19 08:48; Start 04/15/19 at 09:00 Fluticasone Propionate (Flonase 0.05% Nasal [place]) 1 SPRAY IN EACH NOSTRIL BID NARES Last administered on 04/29/19at 08:49; Start 04/21/19 at 21:00 Gabapentin (Neurontin) 300 mg TID PO Last administered on 04/29/19at 08:49; Start 04/14/19 at 21:00 Glucagon (Glucagon) 1 mg ASDIRECTED PRN SC SEE LABEL COMMENTS; Start 04/14/19 at 16:45 Glucose (Glucose) 16 GM ASDIRECTED PRN PO SEE LABEL COMMENTS; Start 04/14/19 at 16:45 Guaifenesin (Robitussin Tab) 400 mg BID PO Last administered on 04/29/19 08:49; Start 04/17/19 at 09:00 Heparin Sodium (Heparin (Flush)) 200 units ASDIRECTED PRN IV SEE LABEL COMMENTS Last administered on 04/20/19at 20:09; Start 04/14/19 at 17:30; Stop 04/21/19 at 23:20; Status DC Heparin Sodium (Heparin (Flush)) 200 units PICC IV Last administered on 04/21/19at 05:59; Start 04/14/19 at 18:00; Stop 04/21/19 at 23:20; Status DC Home Med (Med Rec Complete!) ASDIRECTED XX ; Start 04/14/19 at 16:00; Stop 04/14/19 at 16:01; Status DC Insulin Detemir (Levemir Insulin) 5 units DAILY SC Last administered on 04/24/19at 12:24; Start 04/24/19 at 09:00; Stop 04/24/19 at 14:46; Status DC Insulin Detemir (Levemir Insulin) 30 units QHS SC Last administered on 04/22/19at 21:55; Start 04/18/19 at 21:00; Stop 04/23/19 at 11:17; Status DC Insulin Detemir (Levemir Insulin) 40 units QHS SC Last administered on 04/28/19at 21:39; Start 04/23/19 at 21:00 Insulin Detemir (Levemir Insulin) 60 units QHS SC ; Start 04/14/19 at 21:00; Stop 04/14/19 at 21:00; Status DC Insulin Detemir (Levemir Insulin) 62 units QHS SC Last administered on 04/17/19at 21:27; Start 04/14/19 at 21:00; Stop 04/18/19 at 06:03; Status DC Insulin Human Lispro (HumaLOG INSULIN) SEE PROTOCOL TABLE AC SC Last administered on 04/24/19at 12:24; Start 04/14/19 at 17:30; Stop 04/24/19 at 14:46; Status DC Insulin Human Lispro (HumaLOG INSULIN) SEE PROTOCOL TABLE QHS SC Last administered on 04/23/19at 21:55; Start 04/14/19 at 21:00; Stop 04/24/19 at 14:46; Status DC Magnesium Hydroxide (Milk Of Magnesia) 30 ml DAILYPRN PRN PO CONSTIPATION; Start 04/14/19 at 16:30; Stop 04/24/19 at 14:46; Status DC Metformin HCl (Glucophage) 500 mg BID@08,18 PO Last administered on 04/26/19at 08:23; Start 04/24/19 at 18:00; Stop 04/26/19 at 12:24; Status DC Metformin HCl (Glucophage) 1,000 mg BID@ PO ; Start 04/24/19 at 18:00; Stop 04/24/19 at 18:00; Status DC Metformin HCl (Glucophage) 1,000 mg BID@ PO Last administered on 04/29/19at 08:48; Start 04/26/19 at 18:00 Metoprolol Tartrate (Lopressor) 12.5 mg BID PO Last administered on 04/15/19at 08:31; Start 04/14/19 at 21:00; Stop 04/15/19 at 14:59; Status DC Metoprolol Tartrate (Lopressor) 12.5 mg BID PO Last administered on 04/29/19at 08:49; Start 04/17/19 at 21:00; Stop 04/29/19 at 12:51; Status DC Metoprolol Tartrate (Lopressor) 12.5 mg Q8H PO Last administered on 04/16/19at 22:53; Start 04/15/19 at 22:00; Stop 04/17/19 at 10:01; Status DC Metoprolol Tartrate (Lopressor) 25 mg BID PO ; Start 04/29/19 at 21:00 Metoprolol Tartrate (Lopressor) 25 mg Q8H PO ; Start 04/15/19 at 14:00; Stop 04/15/19 at 15:12; Status DC Ondansetron HCl (ZOFRAN INJection) 4 mg Q6HP PRN IM NAUSEA; Start 04/14/19 at 16:30 Pantoprazole Sodium (Protonix) 40 mg BID PO Last administered on 04/29/19at 08:49; Start 04/15/19 at 21:00 Pantoprazole Sodium (Protonix) 40 mg DAILY PO Last administered on 04/15/19at 08:32; Start 04/15/19 at 09:00; Stop 04/15/19 at 15:58; Status DC Piperacillin Sod/ Tazobactam Sod 3.375 gm/Dextrose 50 ml @ 50 mls/hr Q6H IV Last administered on 04/17/19at 12:46; Start 04/14/19 at 18:00; Stop 04/17/19 at 17:38; Status DC Senna (Senokot) 1 tab QHS PO Last administered on 04/28/19at 21:38; Start 04/14/19 at 21:00 Simethicone (Mylicon) 80 mg TID PO Last administered on 04/29/19 08:48; Start 04/21/19 at 16:00 Simethicone (Mylicon) 80 mg TIDP PRN PO GAS PAIN; Start 04/14/19 at 16:45; Stop 04/21/19 at 15:54; Status DC Sodium Chloride 1,000 ml @ 100 mls/hr Q10H IV ; Start 04/29/19 at 13:00 Sodium Chloride (Saline Lock Flush) 10 ml ASDIRECTED PRN IV SEE LABEL COMMENTS Last administered on 04/20/19 20:09; Start 04/14/19 at 17:30; Stop 04/21/19 at 23:20; Status DC Sodium Chloride (Saline Lock Flush) 10 ml PICC IV Last administered on 04/21/19at 05:59; Start 04/14/19 at 18:00; Stop 04/21/19 at 23:20; Status DC Tramadol HCl (Ultram) 50 mg Q4HP PRN PO MODERATE PAIN (PS 5-7) Last administered on 04/28/19at 18:12; Start 04/14/19 at 16:45; Stop 04/28/19 at 19:56; Status DC Tramadol HCl (Ultram) 50 mg Q6HP PRN PO MODERATE PAIN (PS 5-7); Start 04/28/19 at 20:00 Zinc Oxide (Boudreauxs Butt Paste) sacrum BID TOP Last administered on 04/29/19 08:50; Start 04/15/19 at 21:00 ALEKSEY MUÑOZ MD Apr 29, 2019 14:29
[2019-04-29] MEDS: NS 1,000 ML IV SCH ×2 (15:11→23:36)
[2019-04-29] MEDS: LEVEMIR (INSULIN DETEMIR) 1 UNITS/0.01ML SC SCH (20:29)
[2019-04-29] MEDS: METOPROLOL TART 25 MG TABLET PO SCH (20:29)
[2019-04-29] MEDS: SENNA 8.6 MG TAB (SENOKOT) PO SCH (20:29)
[2019-04-29 20:36] VITALS: BP 130/70
[2019-04-30 06:00] VITALS: BP 121/76
[2019-04-30 07:19] LABS: HEMATOCRIT 30.2 % (42.0-52.0); HEMOGLOBIN 9.5 g/dl (13.5-17.5); MEAN CORPUSCULAR HGB CONC 31.5 g/dl (32.0-36.5); MEAN CORPUSCULAR VOLUME 85.8 fl (80.0-96.0); PLATELET COUNT, AUTOMATED 249 10^3/uL (150-450); RED BLOOD COUNT 3.52 10^6/uL (4.30-6.10); WHITE BLOOD COUNT 5.2 10^3/uL (4.0-10.0)
[2019-04-30 07:45] LABS: ALBUMIN 2.4 GM/DL (3.2-5.2); ALT/SGPT 24 U/L (12-78); BILIRUBIN,TOTAL 0.3 MG/DL (0.2-1.0); BLOOD UREA NITROGEN 17 MG/DL (7-18); CALCIUM LEVEL 8.7 MG/DL (8.5-10.1); CARBON DIOXIDE LEVEL 28 MEQ/L (21-32); CHLORIDE LEVEL 107 MEQ/L (98-107); CREATININE FOR GFR 0.58 MG/DL (0.70-1.30); GLOMERULAR FILTRATION RATE > 60.0 (>60); GLUCOSE, FASTING 137 MG/DL (70-100); POTASSIUM SERUM 4.2 MEQ/L (3.5-5.1); SODIUM LEVEL 141 MEQ/L (136-145); TOTAL PROTEIN 7.2 GM/DL (6.4-8.2)
[2019-04-30] MEDS: IPRATROPIUM 0.5MG/ALBUTEROL 2.5MG INH SOL UD 3ML (DUONEB)(J7620) NEB SCH (07:53)
[2019-04-30] MEDS: CEPACOL LOZENGE PO SCH (08:56)
[2019-04-30] MEDS: guaiFENesin 200 MG TAB PO SCH (08:56)
[2019-04-30] MEDS: metFORMIN (GLUCOPHAGE) 500 MG TAB PO SCH (08:56)
[2019-04-30] MEDS: GABAPENTIN 300 MG CAP PO SCH (08:56)
[2019-04-30] MEDS: FERROUS GLUCONATE 324 MG TAB PO SCH (08:56)
[2019-04-30] MEDS: SIMETHICONE 80 MG CHEW TAB PO SCH (08:56)
[2019-04-30 08:57] VITALS: BP 121/76
[2019-04-30] MEDS: APIXABAN 5 MG TAB (ELIQUIS) PO SCH (08:57)
[2019-04-30] MEDS: METOPROLOL TART 25 MG TABLET PO SCH (08:57)
[2019-04-30] MEDS: ACETAMINOPHEN 500 MG TAB PO SCH (08:57)
[2019-04-30] MEDS: PANTOPRAZOLE 40MG TAB (PROTONIX) PO SCH (08:57)
[2019-04-30] MEDS: FLUTICASONE PROP 0.05% NASAL SPRAY 16 GM (FLONASE) NARES SCH (08:58)
[2019-04-30] MEDS: BOUDREAUX'S BUTT PASTE TOP SCH (08:58)
[2019-04-30] MEDS: NS 1,000 ML IV SCH (09:00)
[2019-04-30] MEDS ORDERED: INSUDET SC (10:27)
[2019-04-30] MEDS ORDERED: PANT40TA3 PO (10:27)
[2019-04-30] MEDS ORDERED: METO1TAB87 PO (10:27)
[2019-04-30] MEDS ORDERED: ELIQ5TAB PO (10:27)
[2019-04-30] MEDS ORDERED: GLUC500T PO (10:27)
[2019-04-30] MEDS ORDERED: SIME80TA PO (10:27)
[2019-04-30] MEDS ORDERED: GABA-843 PO (10:27)
== END 2019-04-30 13:10 | disposition home health service (06) | DRG 862 ==
LOC: M MS5PR 04-14 15:25 → M PM&R 04-14 16:02
PROVIDERS: ADMIT Physical Medicine & Rehabilitation; ATTEND Physical Medicine & Rehabilitation
PROC: 30233N1 Transfusion of Nonautologous Red Blood Cells into Peripheral Vein, Percutaneous Approach (ICD-10-PCS; principal; 2019-04-15)
DX: Z47.81 Encounter for orthopedic aftercare following surgical amputation (principal); M72.6 Necrotizing fasciitis; L89.152 Pressure ulcer of sacral region, stage 2; E11.42 Type 2 diabetes mellitus with diabetic polyneuropathy; Z89.612 Acquired absence of left leg above knee; E11.65 Type 2 diabetes mellitus with hyperglycemia; G54.6 Phantom limb syndrome with pain; F20.9 Schizophrenia, unspecified; Z95.828 Presence of other vascular implants and grafts; R26.89 Other abnormalities of gait and mobility; M21.371 Foot drop, right foot; F41.9 Anxiety disorder, unspecified; D50.0 Iron deficiency anemia secondary to blood loss (chronic); F31.9 Bipolar disorder, unspecified; K21.9 Gastro-esophageal reflux disease without esophagitis; I25.10 Atherosclerotic heart disease of native coronary artery without angina pectoris; Z79.01 Long term (current) use of anticoagulants; Z79.4 Long term (current) use of insulin; Z79.899 Other long term (current) drug therapy; Z88.0 Allergy status to penicillin; Z86.711 Personal history of pulmonary embolism; Z86.718 Personal history of other venous thrombosis and embolism; Z91.19 Patient's noncompliance with other medical treatment and regimen; Z91.120 Patient's intentional underdosing of medication regimen due to financial hardship; T38.3X6D Underdosing of insulin and oral hypoglycemic [antidiabetic] drugs, subsequent encounter

== ENCOUNTER → 2019-07-04 | Outpatient (CLI) | payer OTHER ==
[~2019-07-04] MED LIST changes: +APAP325T4 PO; +ASPI81TA85 PO; +ATOR1TAB19 PO; +BASA100I; +ELIQ5TAB PO; +FERR1TAB8 PO; +FERR325T3 PO; +GABA-843 PO; +GABA-845 PO; +GLUC500T PO; +HYDR-3713 PO; +INSUDET SC; +INSUHUMDS SC; +LANTINJ4 SC; +METF-791 PO; +METO1TAB87 PO; +METO25TA4 PO; +MI-A80CH PO; +PANT40TA3 PO; +SENN8.6T28 PO; +SERT-138 PO; +SIME40TA PO; +SIME80TA PO; +STOO2CAP PO; +TRAM50TA2 PO; +TRUL10IN; +ZOSY3INJ2 IV
[2019-07-04 16:50] LABS: APPEARANCE, URINE CLEAR (CLEAR); BACTERIA, URINE AUTO NEGATIVE (NEGATIVE); BASO % 0.6 % (0.0-1.0); BILIRUBIN, URINE AUTO NEGATIVE (NEGATIVE); BLOOD, URINE BLOOD 1+ (NEGATIVE); COLOR, URINE YELLOW (YELLOW); EOS # 0.1 10^3/uL (0.0-0.50); EOS % 2.1 % (0.0-3.0); GLUCOSE, URINE (UA) AUTO NEGATIVE (NEGATIVE); HEMATOCRIT 39.4 % (42.0-52.0); HEMOGLOBIN 13.1 g/dl (13.5-17.5); KETONE, URINE AUTO NEGATIVE (NEGATIVE); LEUKOCYTE ESTERASE, URINE AUTO NEGATIVE (NEGATIVE); LYMPH # 1.5 10^3/uL (1.5-4.5); LYMPH % 28.1 % (24.0-44.0); MEAN CORPUSCULAR HEMOGLOBIN 27.6 pg (27.0-33.0); MEAN CORPUSCULAR HGB CONC 33.2 g/dl (32.0-36.5); MEAN CORPUSCULAR VOLUME 82.9 fl (80.0-96.0); MONO # 0.5 10^3/uL (0.0-0.8); MONO % 8.6 % (0.0-5.0); MUCUS, URINE SMALL (NEGATIVE); NEUTROPHILS # 3.2 10^3/uL (1.8-7.7); NEUTROPHILS % 60.2 % (36.0-66.0); NITRITE, URINE AUTO NEGATIVE (NEGATIVE); PLATELET COUNT, AUTOMATED 171 10^3/uL (150-450); PROTEIN, URINE AUTO NEGATIVE (NEGATIVE); RBC, URINE AUTO 3 /HPF (0-3); RED BLOOD COUNT 4.75 10^6/uL (4.30-6.10); SPECIFIC GRAVITY URINE AUTO 1.019 (1.002-1.035); SQUAMOUS EPITHELIAL CELL UR AU 0 /HPF (0-6); UROBILINOGEN, URINE AUTO 0.2 mg/dL (0.0-2.0); WBC, URINE AUTO 0 /HPF (0-3); WHITE BLOOD COUNT 5.3 10^3/uL (4.0-10.0)
[2019-07-04 17:05] LABS: ALBUMIN 3.8 GM/DL (3.2-5.2); ALT/SGPT 36 U/L (12-78); BILIRUBIN,TOTAL 0.6 MG/DL (0.2-1.0); BLOOD UREA NITROGEN 17 MG/DL (7-18); CALCIUM LEVEL 9.1 MG/DL (8.5-10.1); CARBON DIOXIDE LEVEL 30 MEQ/L (21-32); CHLORIDE LEVEL 106 MEQ/L (98-107); CHOLESTEROL LEVEL 153 MG/DL (<200); CHOLESTEROL RISK RATIO 3.825 (<5); CREATININE FOR GFR 0.52 MG/DL (0.70-1.30); FREE T4 0.77 NG/DL (0.76-1.46); GLOMERULAR FILTRATION RATE > 60.0 (>60); GLUCOSE, FASTING 118 MG/DL (70-100); HDL CHOLESTEROL 40 MG/DL (>40); LDL CHOLESTEROL 89 MG/DL (<100); NON-HDL-C 113 MG/DL; POTASSIUM SERUM 4.3 MEQ/L (3.5-5.1); SODIUM LEVEL 140 MEQ/L (136-145); TOTAL 25(OH) VITAMIN D 18.6 NG/ML (30.0-100.0); TOTAL PROTEIN 7.2 GM/DL (6.4-8.2); TRIGLYCERIDES LEVEL 121 MG/DL (<150)
[2019-07-04 17:16] LABS: HEMOGLOBIN A1c 7.8 %
== END ==
LOC: M WUC 13:42
PROVIDERS: ATTEND Family Medicine
DX: Z13.228 Encounter for screening for other metabolic disorders (principal); E11.9 Type 2 diabetes mellitus without complications

== ENCOUNTER → 2019-10-10 | Outpatient (REF) | payer OTHER ==
[~2019-10-10] MED LIST changes: -ASPI81TA85 PO; -ATOR1TAB19 PO; -BASA100I; -FERR325T3 PO; -GABA-845 PO; -HYDR-3713 PO; -METF-791 PO; -MI-A80CH PO; -SERT-138 PO; -STOO2CAP PO; -TRUL10IN
[2019-10-10 17:08] LABS: BASO % 0.6 % (0.0-1.0); EOS # 0.2 10^3/uL (0.0-0.5); EOS % 2.1 % (0.0-3.0); HEMATOCRIT 41.1 % (42.0-52.0); HEMOGLOBIN 13.6 g/dl (13.5-17.5); LYMPH # 1.7 10^3/uL (1.5-5.0); MEAN CORPUSCULAR HGB CONC 33.1 g/dl (32.0-36.5); MEAN CORPUSCULAR VOLUME 84.6 fl (80.0-96.0); MONO # 0.7 10^3/uL (0.0-0.8); MONO % 8.9 % (0.0-5.0); NEUTROPHILS # 4.7 10^3/uL (1.5-8.5); NEUTROPHILS % 65.1 % (36.0-66.0); PLATELET COUNT, AUTOMATED 156 10^3/uL (150-450); RED BLOOD COUNT 4.86 10^6/uL (4.30-6.10); WHITE BLOOD COUNT 7.3 10^3/uL (4.0-10.0)
[2019-10-10 17:26] LABS: ALBUMIN 3.7 GM/DL (3.2-5.2); ALT/SGPT 21 U/L (12-78); BILIRUBIN,TOTAL 0.8 MG/DL (0.2-1.0); BLOOD UREA NITROGEN 11 MG/DL (7-18); CALCIUM LEVEL 9.3 MG/DL (8.5-10.1); CARBON DIOXIDE LEVEL 30 MEQ/L (21-32); CHLORIDE LEVEL 102 MEQ/L (98-107); CHOLESTEROL LEVEL 150 MG/DL (<200); CHOLESTEROL RISK RATIO 3.846 (<5); CREATININE FOR GFR 0.59 MG/DL (0.70-1.30); FREE T4 0.94 NG/DL (0.76-1.46); GLOMERULAR FILTRATION RATE > 60.0 (>60); GLUCOSE, FASTING 184 MG/DL (70-100); HDL CHOLESTEROL 39 MG/DL (>40); LDL CHOLESTEROL 75 MG/DL (<100); NON-HDL-C 111 MG/DL; POTASSIUM SERUM 4.4 MEQ/L (3.5-5.1); SODIUM LEVEL 138 MEQ/L (136-145); TOTAL PROTEIN 7.1 GM/DL (6.4-8.2); TRIGLYCERIDES LEVEL 178 MG/DL (<150)
[2019-10-10 17:34] LABS: TOTAL 25(OH) VITAMIN D 15.8 NG/ML (30.0-100.0)
[2019-10-10 17:37] LABS: HEMOGLOBIN A1c 9.8 %
== END ==
LOC: M LAB REF 16:40
PROVIDERS: ATTEND Family Medicine
DX: E11.9 Type 2 diabetes mellitus without complications (principal); Z13.228 Encounter for screening for other metabolic disorders

== ENCOUNTER → 2019-11-28 | Outpatient (CLI) | payer OTHER ==
[~2019-11-28] MED LIST changes: +ASPI81TA85 PO; +ATOR1TAB19 PO; +BASA100I; +FERR325T3 PO; +GABA-845 PO; +HYDR-3713 PO; +METF-791 PO; +MI-A80CH PO; +SERT-138 PO; +STOO2CAP PO; +TRUL10IN
[2019-11-28 17:27] LABS: BASO % 0.5 % (0.0-1.0); EOS # 0.1 10^3/uL (0.0-0.5); EOS % 1.6 % (0.0-3.0); HEMATOCRIT 43.3 % (42.0-52.0); HEMOGLOBIN 14.2 g/dl (13.5-17.5); LYMPH % 31.5 % (24.0-44.0); MEAN CORPUSCULAR HEMOGLOBIN 27.3 pg (27.0-33.0); MEAN CORPUSCULAR HGB CONC 32.8 g/dl (32.0-36.5); MEAN CORPUSCULAR VOLUME 83.1 fl (80.0-96.0); MONO # 0.5 10^3/uL (0.0-0.8); MONO % 7.1 % (0.0-5.0); NEUTROPHILS # 3.7 10^3/uL (1.5-8.5); NEUTROPHILS % 58.3 % (36.0-66.0); PLATELET COUNT, AUTOMATED 205 10^3/uL (150-450); RED BLOOD COUNT 5.21 10^6/uL (4.30-6.10); WHITE BLOOD COUNT 6.3 10^3/uL (4.0-10.0)
[2019-11-28 18:33] LABS: ALT/SGPT 17 U/L (12-78); BILIRUBIN,TOTAL 0.6 MG/DL (0.2-1.0); BLOOD UREA NITROGEN 14 MG/DL (7-18); CALCIUM LEVEL 9.2 MG/DL (8.5-10.1); CARBON DIOXIDE LEVEL 27 MEQ/L (21-32); CHLORIDE LEVEL 97 MEQ/L (98-107); CREATININE FOR GFR 0.86 MG/DL (0.70-1.30); GLOMERULAR FILTRATION RATE > 60.0 (>60); GLUCOSE, FASTING 418 MG/DL (70-100); POTASSIUM SERUM 4.5 MEQ/L (3.5-5.1); SODIUM LEVEL 133 MEQ/L (136-145); TOTAL PROTEIN 7.7 GM/DL (6.4-8.2)
== END ==
LOC: M LAB 15:44
PROVIDERS: ATTEND Internal Medicine Hematology & Oncology
DX: Z86.718 Personal history of other venous thrombosis and embolism (principal)

== ENCOUNTER → 2019-12-17 | Outpatient (REF) | payer OTHER, MEDICAID ==
[2019-12-17 18:19] LABS: ALT/SGPT 24 U/L (12-78); BILIRUBIN,TOTAL 0.7 MG/DL (0.2-1.0); BLOOD UREA NITROGEN 13 MG/DL (7-18); CARBON DIOXIDE LEVEL 32 MEQ/L (21-32); CHLORIDE LEVEL 99 MEQ/L (98-107); CREATININE FOR GFR 0.81 MG/DL (0.70-1.30); GLOMERULAR FILTRATION RATE > 60.0 (>60); GLUCOSE, FASTING 353 MG/DL (70-100); POTASSIUM SERUM 4.4 MEQ/L (3.5-5.1); SODIUM LEVEL 136 MEQ/L (136-145)
[2019-12-17 18:20] LABS: ALBUMIN 3.8 GM/DL (3.2-5.2); CHOLESTEROL LEVEL 223 MG/DL (<200); CHOLESTEROL RISK RATIO 6.027 (<5); HDL CHOLESTEROL 37 MG/DL (>40); LDL CHOLESTEROL 107 MG/DL (<100); NON-HDL-C 186 MG/DL; TOTAL PROTEIN 7.3 GM/DL (6.4-8.2); TRIGLYCERIDES LEVEL 394 MG/DL (<150)
[2019-12-17 18:52] LABS: TOTAL 25(OH) VITAMIN D 11.9 NG/ML (30.0-100.0)
[2019-12-17 19:13] LABS: HEMOGLOBIN A1c 11.4 %
== END ==
LOC: M LAB REF 17:11
PROVIDERS: ATTEND Physician Assistant
DX: Z86.711 Personal history of pulmonary embolism (principal); E11.9 Type 2 diabetes mellitus without complications; I82.90 Acute embolism and thrombosis of unspecified vein

== ENCOUNTER → 2020-01-14 | Outpatient (CLI) | payer OTHER ==
[~2020-01-14] MED LIST changes: +CLIN300C5 PO; +ISOVUE-370 76% 100ML VIAL (Q9967) As Ordered ONE
--- NOTE | 2020-01-14 15:37 | REPVR ---
PROCEDURE INFORMATION: Exam: CT Chest With Contrast Exam date and time: 01/14/2020 2:33 PM Age: 49 years old Clinical indication: Pain; Other: Mass; Additional info: Eval eso mass TECHNIQUE: Imaging protocol: Computed tomography of the chest with intravenous contrast. 3D rendering: MIP and/or 3D reconstructed images were created by the technologist. Radiation optimization: All CT scans at this facility use at least one of these dose optimization techniques: automated exposure control; mA and/or kV adjustment per patient size (includes targeted exams where dose is matched to clinical indication); or iterative reconstruction. Contrast material: ISOVUE 370; Contrast volume: 75 ml; Contrast route: IV; COMPARISON: CT ANGIO CHEST 08/27/2018 11:43 PM FINDINGS: Thyroid: The thyroid gland is normal. Lungs: Unremarkable. No consolidation. No masses. Pleural space: Unremarkable. No pneumothorax. No pleural effusion. Heart: A stable 28 x 36 x 52 mm cyst at the left cardiac margin on axial image 42 probably represents pericardial cyst. Mediastinum: A small hiatal hernia is present. The whole No esophageal mass is identified. Pulmonary arteries: The pulmonary artery measures 40 mm on axial image 39. The adjacent aorta measures 41 mm compared to 34 mm previously. Pulmonary artery hypertension is likely. Aorta: See Pulmonary Arteries Finding. Other veins: There is compression of the left subclavian vein at the thoracic inlet between the clavicle and 1st rib on axial image 16 with extensive collateral venous filling. Lymph nodes: Unremarkable. No enlarged lymph nodes. Liver: Upper abdomen: The visualized portions of the liver, pancreas, adrenal glands, and spleen show no significant abnormalities. Bones/joints: There are diffuse enthesopathic changes consistent with benign diffuse idiopathic skeletal hyperostosis (DISH). Soft tissues: There is mild nonspecific gynecomastia. IMPRESSION: 1. A small hiatal hernia is present. The whole No esophageal mass is identified. 2. A stable 28 x 36 x 52 mm cyst at the left cardiac margin on axial image 42 probably represents pericardial cyst. 3. The pulmonary artery measures 40 mm on axial image 39. The adjacent aorta measures 41 mm compared to 34 mm previously. Pulmonary artery hypertension is likely. 4. There is compression of the left subclavian vein at the thoracic inlet between the clavicle and 1st rib on axial image 16 with extensive collateral venous filling. Electronically signed by: Jose Angel Werner On 01/14/2020 15:37:38 PM
== END ==
LOC: M RAD 14:19
PROVIDERS: ATTEND Internal Medicine Hematology & Oncology
DX: K22.8 Other specified diseases of esophagus (principal); Z86.718 Personal history of other venous thrombosis and embolism; Z86.711 Personal history of pulmonary embolism; K44.9 Diaphragmatic hernia without obstruction or gangrene; I31.8 Other specified diseases of pericardium
CPT/HCPCS: 71260; Q9967

== ENCOUNTER → 2020-04-21 | Outpatient (REF) | payer OTHER, MEDICAID ==
[~2020-04-21] MED LIST changes: -ISOVUE-370 76% 100ML VIAL (Q9967) As Ordered ONE; -METF-791 PO; +METF-838 PO; +VITA-113 SL
[2020-04-21 13:16] LABS: BASO % 0.3 % (0.0-1.0); EOS # 0.3 10^3/uL (0.0-0.5); HEMATOCRIT 41.9 % (42.0-52.0); HEMOGLOBIN 13.8 g/dl (13.5-17.5); LYMPH # 1.6 10^3/uL (1.5-5.0); LYMPH % 22.7 % (24.0-44.0); MEAN CORPUSCULAR HEMOGLOBIN 27.3 pg (27.0-33.0); MEAN CORPUSCULAR HGB CONC 32.9 g/dl (32.0-36.5); MONO # 0.5 10^3/uL (0.0-0.8); MONO % 7.5 % (0.0-5.0); NEUTROPHILS # 4.5 10^3/uL (1.5-8.5); NEUTROPHILS % 65.2 % (36.0-66.0); PLATELET COUNT, AUTOMATED 156 10^3/uL (150-450); RED BLOOD COUNT 5.05 10^6/uL (4.30-6.10); WHITE BLOOD COUNT 6.8 10^3/uL (4.0-10.0)
[2020-04-21 13:36] LABS: HEMOGLOBIN A1c 11.4 %
[2020-04-21 14:01] LABS: ALBUMIN 3.8 GM/DL (3.2-5.2); ALT/SGPT 34 U/L (12-78); BILIRUBIN,TOTAL 0.5 MG/DL (0.2-1.0); BLOOD UREA NITROGEN 14 MG/DL (7-18); CALCIUM LEVEL 9.2 MG/DL (8.5-10.1); CARBON DIOXIDE LEVEL 28 MEQ/L (21-32); CHLORIDE LEVEL 103 MEQ/L (98-107); CHOLESTEROL LEVEL 146 MG/DL (<200); CHOLESTEROL RISK RATIO 3.842 (<5); CREATININE FOR GFR 0.93 MG/DL (0.70-1.30); FREE T4 1.01 NG/DL (0.76-1.46); GLOMERULAR FILTRATION RATE > 60.0 (>60); GLUCOSE, FASTING 443 MG/DL (70-100); HDL CHOLESTEROL 38 MG/DL (>40); LDL CHOLESTEROL 72 MG/DL (<100); NON-HDL-C 108 MG/DL; POTASSIUM SERUM 4.5 MEQ/L (3.5-5.1); SODIUM LEVEL 139 MEQ/L (136-145); TOTAL 25(OH) VITAMIN D 23.2 NG/ML (30.0-100.0); TOTAL PROTEIN 7.4 GM/DL (6.4-8.2); TRIGLYCERIDES LEVEL 182 MG/DL (<150)
== END ==
LOC: M LAB REF 12:50
PROVIDERS: ATTEND Nurse Practitioner Family
DX: Z13.9 Encounter for screening, unspecified (principal); Z86.711 Personal history of pulmonary embolism; E11.9 Type 2 diabetes mellitus without complications; Z89.612 Acquired absence of left leg above knee

== ENCOUNTER → 2020-07-26 | Outpatient (REF) | payer OTHER, MEDICAID ==
[~2020-07-26] MED LIST changes: -ASPI81TA85 PO; +ASPI81TA86 PO; +ELIQ2.5T PO; +PANT40TA29 PO; -PANT40TA3 PO; +STEG5TAB PO
[2020-07-26 18:51] LABS: BASO % 0.5 % (0.0-1.0); EOS # 0.3 10^3/uL (0.0-0.5); EOS % 4.3 % (0.0-3.0); HEMATOCRIT 39.6 % (42.0-52.0); HEMOGLOBIN 12.9 g/dl (13.5-17.5); LYMPH # 1.3 10^3/uL (1.5-5.0); LYMPH % 22.8 % (24.0-44.0); MEAN CORPUSCULAR HEMOGLOBIN 27.3 pg (27.0-33.0); MEAN CORPUSCULAR HGB CONC 32.6 g/dl (32.0-36.5); MEAN CORPUSCULAR VOLUME 83.7 fl (80.0-96.0); MONO # 0.5 10^3/uL (0.0-0.8); MONO % 8.1 % (0.0-5.0); NEUTROPHILS # 3.7 10^3/uL (1.5-8.5); NEUTROPHILS % 63.8 % (36.0-66.0); PLATELET COUNT, AUTOMATED 166 10^3/uL (150-450); RED BLOOD COUNT 4.73 10^6/uL (4.30-6.10); WHITE BLOOD COUNT 5.8 10^3/uL (4.0-10.0)
[2020-07-26 19:01] LABS: ALBUMIN 3.7 GM/DL (3.2-5.2); ALT/SGPT 24 U/L (12-78); BILIRUBIN,TOTAL 0.5 MG/DL (0.2-1.0); BLOOD UREA NITROGEN 9 MG/DL (7-18); CALCIUM LEVEL 9.1 MG/DL (8.5-10.1); CARBON DIOXIDE LEVEL 29 MEQ/L (21-32); CHLORIDE LEVEL 105 MEQ/L (98-107); CHOLESTEROL LEVEL 177 MG/DL (<200); CHOLESTEROL RISK RATIO 4.783 (<5); CREATININE FOR GFR 0.66 MG/DL (0.70-1.30); GLOMERULAR FILTRATION RATE > 60.0 (>60); GLUCOSE, FASTING 122 MG/DL (70-100); HDL CHOLESTEROL 37 MG/DL (>40); LDL CHOLESTEROL 98 MG/DL (<100); NON-HDL-C 140 MG/DL; POTASSIUM SERUM 4.5 MEQ/L (3.5-5.1); SODIUM LEVEL 140 MEQ/L (136-145); TOTAL PROTEIN 7.2 GM/DL (6.4-8.2); TRIGLYCERIDES LEVEL 209 MG/DL (<150)
== END ==
LOC: M LAB REF 18:22
PROVIDERS: ATTEND Nurse Practitioner Family
DX: Z74.09 Other reduced mobility (principal); E55.9 Vitamin D deficiency, unspecified; Z13.9 Encounter for screening, unspecified; Z89.612 Acquired absence of left leg above knee; E11.9 Type 2 diabetes mellitus without complications

== ENCOUNTER → 2020-09-02 | Outpatient (CLI) | payer OTHER ==
[2020-09-02 09:54] LABS: BLOOD UREA NITROGEN 14 MG/DL (7-18); CARBON DIOXIDE LEVEL 28 MEQ/L (21-32); CHLORIDE LEVEL 105 MEQ/L (98-107); CREATININE FOR GFR 0.74 MG/DL (0.70-1.30); GLOMERULAR FILTRATION RATE > 60.0 (>60); GLUCOSE, FASTING 116 MG/DL (70-100); POTASSIUM SERUM 4.6 MEQ/L (3.5-5.1); SODIUM LEVEL 139 MEQ/L (136-145)
== END ==
LOC: M LAB 08:24
PROVIDERS: ATTEND Nurse Practitioner Family
DX: E11.51 Type 2 diabetes mellitus with diabetic peripheral angiopathy without gangrene (principal)

== ENCOUNTER → 2020-09-17 | Outpatient (CLI) | payer OTHER | LOC: M RAD 13:26 | PROVIDERS: ATTEND Family Medicine Addiction Medicine | DX: F34.1 Dysthymic disorder (principal) ==

== ENCOUNTER → 2020-10-28 | Outpatient (REF) | payer OTHER ==
[~2020-10-28] MED LIST changes: -CLIN300C5 PO; +CLIN300C6 PO
[2020-10-28 17:47] LABS: HEMOGLOBIN A1c 10.1 %
[2020-10-28 17:51] LABS: BASO % 0.4 % (0.0-1.0); EOS # 0.2 10^3/uL (0.0-0.5); EOS % 3.4 % (0.0-3.0); HEMATOCRIT 43.8 % (42.0-52.0); HEMOGLOBIN 13.8 g/dl (13.5-17.5); LYMPH # 1.2 10^3/uL (1.5-5.0); LYMPH % 24.5 % (24.0-44.0); MEAN CORPUSCULAR HEMOGLOBIN 26.3 pg (27.0-33.0); MEAN CORPUSCULAR HGB CONC 31.5 g/dl (32.0-36.5); MEAN CORPUSCULAR VOLUME 83.4 fl (80.0-96.0); MONO # 0.3 10^3/uL (0.0-0.8); MONO % 6.9 % (0.0-5.0); NEUTROPHILS # 3.2 10^3/uL (1.5-8.5); NEUTROPHILS % 64.4 % (36.0-66.0); PLATELET COUNT, AUTOMATED 135 10^3/uL (150-450); RED BLOOD COUNT 5.25 10^6/uL (4.30-6.10); WHITE BLOOD COUNT 4.9 10^3/uL (4.0-10.0)
[2020-10-28 18:10] LABS: ALBUMIN 3.8 GM/DL (3.2-5.2); ALT/SGPT 21 U/L (12-78); BILIRUBIN,TOTAL 0.6 MG/DL (0.2-1.0); BLOOD UREA NITROGEN 17 MG/DL (7-18); CALCIUM LEVEL 9.2 MG/DL (8.5-10.1); CARBON DIOXIDE LEVEL 28 MEQ/L (21-32); CHLORIDE LEVEL 99 MEQ/L (98-107); CHOLESTEROL LEVEL 203 MG/DL (<200); CHOLESTEROL RISK RATIO 5.075 (<5); CREATININE FOR GFR 0.81 MG/DL (0.70-1.30); FREE T4 1.03 NG/DL (0.76-1.46); GLOMERULAR FILTRATION RATE > 60.0 (>60); GLUCOSE, FASTING 374 MG/DL (70-100); HDL CHOLESTEROL 40 MG/DL (>40); LDL CHOLESTEROL 129 MG/DL (<100); NON-HDL-C 163 MG/DL; POTASSIUM SERUM 4.5 MEQ/L (3.5-5.1); SODIUM LEVEL 132 MEQ/L (136-145); TOTAL 25(OH) VITAMIN D 13.3 NG/ML (30.0-100.0); TOTAL PROTEIN 7.5 GM/DL (6.4-8.2); TRIGLYCERIDES LEVEL 168 MG/DL (<150)
[2020-10-30 19:07] LABS: PSA TOTAL 0.4 ng/mL (0.0-4.0)
== END ==
LOC: M LAB REF 16:25
PROVIDERS: ATTEND Nurse Practitioner Family
DX: E11.8 Type 2 diabetes mellitus with unspecified complications (principal); G89.29 Other chronic pain

== ENCOUNTER → 2020-12-29 | Outpatient (CLI) | payer OTHER ==
[~2020-12-29] MED LIST changes: +ASPI81CH33 PO; +GABA-282 PO; -GABA-843 PO; -SIME40TA PO; +SIME80CH5 PO; +SIME80CH6 PO; -SIME80TA PO
--- NOTE | 2020-12-30 05:08 | REP ---
INDICATION: ATHSCL TRIBAL ARTERIES RT LEG. COMPARISON: 04/16/2019 TECHNIQUE: Real time thomas scale and color Doppler evaluation of the left lower extremity arterial vasculature using linear high frequency transducer. FINDINGS: The ankle to brachial index of the right lower extremity is 0.96. Mild partially calcified atheromatous plaquing noted. Color Doppler interrogation demonstrates normal triphasic wave patterns and velocities from the common femoral vein through the distal posterior tibial and anterior tibial arteries. There is no evidence for stenosis or occlusion. PSV(CM/SEC) Common femoral artery: 94.7 cm/s Profunda femoris artery: 42.1 cm/s Proximal superficial femoral artery: 60.8 cm/s Mid superficial femoral artery: 59.6 cm/s Distal superficial femoral artery: 67.1 cm/s Popliteal artery: 65.9 cm/s Proximal SANTI: 62.4 cm/s Tibioperoneal trunk: 69.4 cm/s Proximal BUSINESS CONTINUITY PLANNER: 44.0 cm/s Distal BUSINESS CONTINUITY PLANNER: 83.3 cm/s Distal SANTI: 44.6 cm/s IMPRESSION: Mild atheromatous plaquing without areas of significant narrowing/stenosis or occlusion. <Electronically signed by Esau Houston > 12/30/20 [id number]
== END ==
LOC: M RAD 14:36
PROVIDERS: ATTEND Physician Assistant
DX: I70.235 Atherosclerosis of native arteries of right leg with ulceration of other part of foot (principal); Z86.718 Personal history of other venous thrombosis and embolism; Z89.612 Acquired absence of left leg above knee

== ENCOUNTER 2021-01-29 18:39 | Emergency (ER) | payer OTHER ==
[~2021-01-29] VITALS: Ht 193 cm; Wt 109.1 kg
[2021-01-29 19:22] LABS: BASO % 0.3 % (0.0-1.0); EOS # 0.1 10^3/uL (0.0-0.5); EOS % 2.3 % (0.0-3.0); HEMATOCRIT 45.3 % (42.0-52.0); HEMOGLOBIN 14.5 g/dl (13.5-17.5); LYMPH # 0.9 10^3/uL (1.5-5.0); LYMPH % 22.6 % (24.0-44.0); MEAN CORPUSCULAR HEMOGLOBIN 26.5 pg (27.0-33.0); MEAN CORPUSCULAR VOLUME 82.8 fl (80.0-96.0); MONO # 0.3 10^3/uL (0.0-0.8); MONO % 8.3 % (2.0-8.0); NEUTROPHILS # 2.6 10^3/uL (1.5-8.5); PLATELET COUNT, AUTOMATED 124 10^3/uL (150-450); RED BLOOD COUNT 5.47 10^6/uL (4.30-6.10)
[2021-01-29 19:29] LABS: ALBUMIN 3.4 GM/DL (3.2-5.2); ALT/SGPT 21 U/L (12-78); BILIRUBIN,DIRECT 0.2 MG/DL (0.0-0.2); BILIRUBIN,TOTAL 0.5 MG/DL (0.2-1.0); BLOOD UREA NITROGEN 20 MG/DL (7-18); CALCIUM LEVEL 8.3 MG/DL (8.5-10.1); CARBON DIOXIDE LEVEL 23 MEQ/L (21-32); CHLORIDE LEVEL 101 MEQ/L (98-107); CREATININE FOR GFR 0.75 MG/DL (0.70-1.30); GLOMERULAR FILTRATION RATE > 60.0 (>60); GLUCOSE, FASTING 144 MG/DL (70-100); LIPASE 62 U/L (73-393); POTASSIUM SERUM 3.9 MEQ/L (3.5-5.1); SODIUM LEVEL 135 MEQ/L (136-145); TOTAL PROTEIN 7.4 GM/DL (6.4-8.2)
[2021-01-29] MEDS ORDERED: NS 1,000 ML IV ONE (19:40)
[2021-01-29] MEDS ORDERED: ONDANSETRON 4MG/2ML VIAL IV ONE (19:40)
[2021-01-29 22:02] LABS: ACETONE/KETONE 31.66 MG/DL (<2.81)
[2021-01-30 00:47] VITALS: BP 125/81
[2021-01-30] MEDS ORDERED: PANT-23 PO (06:11)
[2021-01-30] MEDS ORDERED: ECOT81TA5 PO (06:11)
[2021-01-30] MEDS ORDERED: METO1TAB33 PO (06:11)
[2021-01-30] MEDS ORDERED: ZOLO100T PO (06:11)
[2021-01-30] MEDS ORDERED: ATOR40TA75 PO (06:11)
[2021-01-30] MEDS ORDERED: DULA3PEN SQ (06:11)
[2021-01-30] MEDS ORDERED: INSU100I28 SC (06:13)
[2021-01-30] MEDS ORDERED: ADME100I SC (06:13)
[2021-01-30] MEDS ORDERED: VITA50005 PO (06:13)
[2021-01-30] MEDS ORDERED: MED REC COMMENT (06:15)
--- NOTE | 2021-01-30 08:21 | ECGEPIP ---
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
== END 2021-01-30 01:15 | disposition home or self-care (01) ==
LOC: M ED 18:39 → EDBD 18:39 → M ED 01-30 01:15
DX: U07.1 COVID-19 (principal); E83.51 Hypocalcemia; E87.1 Hypo-osmolality and hyponatremia; D69.6 Thrombocytopenia, unspecified; E11.9 Type 2 diabetes mellitus without complications; I10 Essential (primary) hypertension; F17.200 Nicotine dependence, unspecified, uncomplicated; Z79.01 Long term (current) use of anticoagulants; Z79.4 Long term (current) use of insulin; Z79.899 Other long term (current) drug therapy; Z88.0 Allergy status to penicillin
CPT/HCPCS: 80048; 80076; 81001; 82010; 83690; 85025; 93005; 96361; 96374; 99285; J2405; U0002

== ENCOUNTER 2021-01-30 03:59 | Observation (INO) | payer OTHER ==
[~2021-01-30] VITALS: Ht 193 cm; Wt 100.7 kg
[2021-01-30] MEDS ORDERED: ONDANSETRON 4 MG ORAL DISINTEGRATING TAB PO ONE ×2 (04:05→04:25)
[2021-01-30 04:26] LABS: VENOUS BASE EXCESS -5.4 (-2.0-2.0); VENOUS HCO3 22.4 MEQ/L (23.0-27.0); VENOUS O2 SATURATION 68.2 % (60.0-80.0); VENOUS PARTIAL PRESSURE CO2 52.4 mmHg (38.0-50.0); VENOUS PARTIAL PRESSURE O2 38.8 mmHg (30.0-50.0); VENOUS PH 7.248 UNITS (7.330-7.430); VENOUS STANDARD HCO3 19.4 MEQ/L
[2021-01-30 05:30] LABS: BASO % 0.3 % (0.0-1.0); EOS # 0.1 10^3/uL (0.0-0.5); HEMATOCRIT 41.7 % (42.0-52.0); HEMOGLOBIN 13.1 g/dl (13.5-17.5); LYMPH # 0.9 10^3/uL (1.5-5.0); LYMPH % 23.6 % (24.0-44.0); MEAN CORPUSCULAR HEMOGLOBIN 26.5 pg (27.0-33.0); MEAN CORPUSCULAR HGB CONC 31.4 g/dl (32.0-36.5); MEAN CORPUSCULAR VOLUME 84.2 fl (80.0-96.0); MONO # 0.4 10^3/uL (0.0-0.8); MONO % 9.5 % (2.0-8.0); NEUTROPHILS # 2.6 10^3/uL (1.5-8.5); NEUTROPHILS % 64.1 % (36.0-66.0); PLATELET COUNT, AUTOMATED 120 10^3/uL (150-450); RED BLOOD COUNT 4.95 10^6/uL (4.30-6.10)
[2021-01-30 05:45] LABS: ACETONE/KETONE 24.38 MG/DL (<2.81); ALBUMIN 3.2 GM/DL (3.2-5.2); ALT/SGPT 18 U/L (12-78); BILIRUBIN,TOTAL 0.5 MG/DL (0.2-1.0); BLOOD UREA NITROGEN 20 MG/DL (7-18); CALCIUM LEVEL 8.2 MG/DL (8.5-10.1); CARBON DIOXIDE LEVEL 24 MEQ/L (21-32); CHLORIDE LEVEL 102 MEQ/L (98-107); GLOMERULAR FILTRATION RATE > 60.0 (>60); GLUCOSE, FASTING 104 MG/DL (70-100); POTASSIUM SERUM 3.4 MEQ/L (3.5-5.1); SODIUM LEVEL 137 MEQ/L (136-145); TOTAL PROTEIN 7.6 GM/DL (6.4-8.2)
[2021-01-30] MEDS ORDERED: DOCUSATE SODIUM 100MG CAPSULE PO PRN (06:05)
[2021-01-30] MEDS ORDERED: DULA3PEN SQ (06:11)
[2021-01-30] MEDS ORDERED: METO1TAB33 PO (06:11)
[2021-01-30] MEDS ORDERED: PANT-23 PO (06:11)
[2021-01-30] MEDS ORDERED: ZOLO100T PO (06:11)
[2021-01-30] MEDS ORDERED: ATOR40TA75 PO (06:11)
[2021-01-30] MEDS ORDERED: ECOT81TA5 PO (06:11)
[2021-01-30] MEDS ORDERED: ADME100I SC (06:13)
[2021-01-30] MEDS ORDERED: VITA50005 PO (06:13)
[2021-01-30] MEDS ORDERED: INSU100I28 SC (06:13)
[2021-01-30] MEDS ORDERED: MED REC COMMENT (06:15)
[2021-01-30] MEDS: HumaLOG INSULIN (NovoLOG) PER UNIT SC SCH ×3 (06:25→17:37)
[2021-01-30] MEDS ORDERED: DEXTROSE 50% 50 ML SYRINGE IV PRN (06:25)
[2021-01-30] MEDS ORDERED: GLUCAGON INJ 1MG VIAL SC PRN (06:25)
[2021-01-30] MEDS ORDERED: GLUCOSE 4GM CHEW TABLET PO PRN (06:25)
[2021-01-30] MEDS: NS 1,000 ML IV SCH ×2 (06:42→13:26)
[2021-01-30] MEDS ORDERED: GABAPENTIN 400MG CAP PO PRN (06:45)
[2021-01-30] MEDS ORDERED: ONDANSETRON 4 MG ORAL DISINTEGRATING TAB PO PRN (06:45)
[2021-01-30] MEDS ORDERED: POTASSIUM CHLORIDE 10 MEQ SR TABLET PO ONE ×2 (06:45→09:00)
--- NOTE | 2021-01-30 06:47 | HPEPDOC ---
[facility] Medical History & Physical Date of Admission Jan 30, 2021 Date of Service: Jan 30, 2021 Attending Physician: EMELY RODRÍGUEZ MD History and Physical CHIEF COMPLAINT: nausea/vomiting HISTORY OF PRESENT ILLNESS: 50 year old male with PMHx noted below who was seen in the ED for persistent nausea and vomiting. He states his symptoms began about 1 week ago with nausea. He notes progressive decrease appetite and worsening vomiting. He notes the past 3 days he has had very little food intake. He states he is able to keep down liquids. He reports vomiting after eating food which looks like bile and food he ate. He notes some epigastric abdominal pain which is worse after vomiting episodes. He denies fevers, chills, night sweats, change in weight. He denies diarrhea or blood in stool. He states he has not had a BM in the past 2-3 days but feels this is due to not eating. He reports a chronic i ntermittent dry cough. He denies shortness of breath, wheezing, sputum production, or hemoptysis. Patient tested positive for COVID-19 virus. PAST MEDICAL HISTORY: Diabetes Mellitus HTN Anemia PVD PE and DVT provoked after AKA surgery GERD Depression/Anxiety Mild intermittent asthma Chronic wounds on R tibia and L hand PAST SURGICAL HISTORY: Left AKA 2018 SOCIAL HISTORY: Denies tobacco use. Denies alcohol use. Denies IV and illicit drug use. Employment: Disabled FAMILY HISTORY: Unknown, patient was adopted. ALLERGIES: Please see below. REVIEW OF SYSTEMS: 10 Point review of systems negative other than what is addressed in HPI. HOME MEDICATIONS: Please see below. PHYSICAL EXAMINATION: VITAL SIGNS: see below GENERAL: Alert, comfortable, in no acute distress HEENT: Normocephalic, atraumatic, sclera anicteric, moist mucous membranes NECK: Supple, trachea midline, no lymphadenopathy CARDIOVASCULAR: Regular rate and rhythm, normal S1 and S2. No murmurs, rubs, or gallops RESPIRATORY: Clear to auscultation bilaterally with equal air entry bilaterally. No wheezing, rhonchi, or rales. ABDOMEN: Soft, nontender, nondistended, bowel sounds present. EXTREMITIES: Left sided AKA. No cyanosis or edema. SKIN: wounds present on L hand and R pretibial area, no erythema, warmth, or drainage NEUROLOGIC: Alert and oriented x3 to person, place and time. No focal deficits appreciated PSYCHIATRIC: Mood and affect appropriate LABORATORY DATA: See below. IMAGING: None MICROBIOLOGY: Please see below. ASSESSMENT: 50 year old male with PMHx of diabetes mellitus, HTN, PVD, hx DVT and PE, anemia, GERD, depression/anxiety, asthma, and chronic wounds, presented to the ED with nausea, vomiting, and poor oral intake PLAN: 1. Metabolic acidosis likely secondary to starvation ketosis - IV fluid hydration with NS - Clear liquid diet, advance as tolerated - zofran PRN for nausea. check EKG for QT interval - monitor FSBS q6h with hypoglycemic protocol until tolerating PO meals. 2. Mild respiratory acidosis likely secondary to COVID-19 infection - Hx of mild intermittent asthma - currently no hypoxia - likely source of nausea and vomiting symptoms - refused infusion therapy for treatment 3. Diabetes Mellitus - Check HgA1c. hold home mediations. - once diet is advanced, change to consistent carb diet with SSI ACHS. hypoglycemic protocol - due to poor oral intake will hold off on basal insulin for now 4. Hx DVT and PE, provoked - continue home eliquis - per oncology note, pt is to be continued on eliquis due to sedentary lifestyle 4. Mild intermittent asthma - no maintenance medications, uses rescue inhaler infrequently 5. HTN - continue home metoprolol with holding parameters 6. PVD - continue home aspirin and statin - s/p left AKA, continue home gabapentin for nerve pain 7. Chronic anemia - H/H stable - continue home iron supplement 8. GERD - continue home pantoprazole and simethicone 9. 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 Tucker DVT prophylaxis: on full anticoagulation with eliquis Disposition: admitted for observation to med/surg, expect less than ones midnights stay Vital Signs Vital Signs Date Time Temp Pulse Resp B/P (MAP) Pulse Ox O2 Delivery O2 Flow Rate FiO2 01/30/21 04:24 95 20 95 Room Air 01/30/21 04:22 97.7 01/30/21 04:17 131/79 (96) Laboratory Data Labs 24H Laboratory Tests 2 01/30/21 04:16: Blood Gas Bicarbonate Standard 19.4, Venous Blood pH 7.248L, Venous Blood Partial Pressure CO2 52.4H, Venous Blood Partial Pressure O2 38.8, Venous Blood Total Carbon Dioxide 24.0, Venous Blood HCO3 22.4L, Venous Blood Oxygen Saturation 68.2, Venous Blood Base Excess -5.4L, Anion Gap 11, Glomerular Filtration Rate > 60.0, Calcium Level 8.2L, Total Bilirubin 0.5, Aspartate Amino Transf (AST/SGOT) 13, Alanine Aminotransferase (ALT/SGPT) 18, Alkaline Phosphatase 85, Total Protein 7.6, Albumin 3.2, Albumin/Globulin Ratio 0.7, B-Hydroxybutyrate 24.38H 01/30/21 05:12: Immature Granulocyte % (Auto) 0.5, Neutrophils (%) (Auto) 64.1, Lymphocytes (%) (Auto) 23.6L, Monocytes (%) (Auto) 9.5H, Eosinophils (%) (Auto) 2.0, Basophils (%) (Auto) 0.3, Neutrophils # (Auto) 2.6, Lymphocytes # (Auto) 0.9L, Monocytes # (Auto) 0.4, Eosinophils # (Auto) 0.1, Basophils # (Auto) 0.0, Nucleated Red Blood Cells % (auto) 0.0 CBC/BMP Laboratory Tests 01/30/21 04:16 01/30/21 05:12 Home Medications Scheduled Apixaban (Eliquis) 2.5 Mg Tablet, 2.5 MG PO BID Aspirin (Ecotrin) 81 Mg Tablet.dr, 81 MG PO DAILY Atorvastatin Calcium (Atorvastatin Calcium) 40 Mg Tablet, 40 MG PO QPM Cyanocobalamin (Vitamin B-12) (Vitamin B-12) 1,000 Mcg Tab.subl, 1,000 MCG SL DAILY Docusate Sodium (Stool Softener) 100 Mg Capsule, 100 MG PO TIDP Dulaglutide (Trulicity) 3 Mg/0.5 Ml Pen.injctr, 3 MG SQ QWEEK ALLA Ergocalciferol (Vitamin D2) (Vitamin D2) 50,000 Units Cap, 50,000 UNITS PO QWEEK ALLA Ertugliflozin Pidolate (Steglatro) 5 Mg Tablet, 5 MG PO DAILY Ferrous Sulfate (Ferrous Sulfate) 325 Mg Tablet.dr, 325 MG PO DAILY Gabapentin (Gabapentin) 400 Mg Capsule, 400 MG PO QIDP Insulin Glargine,Hum.rec.anlog (Semglee Pen) 100 Unit/Ml (3 Ml) Insuln.pen, 50 UNITS SC BID Insulin Lispro (Admelog) 100 Unit/1 Ml Vial, 1 DOSE SC TID WITH MEALS PER SLIDING SCALE Metformin HCl (Metformin HCl ER) 500 Mg Tab.er.24h, 500 MG PO TID Metoprolol Succinate (Metoprolol Succinate) 100 Mg Tab.er.24h, 100 MG PO DAILY Pantoprazole Sodium (Pantoprazole Sodium) 40 Mg Tablet.dr, 40 MG PO BID Sertraline Hcl (Zoloft) 100 Mg Tablet, 200 MG PO DAILY Simethicone (Mi-Acid) 80 Mg Tab.chew, 80 MG PO Q8HP Miscellaneous Medications [Med Rec Comment] PATIENT STATES HAS NOT TAKEN ANY MEDS IN MANY DAYS DUE TO BEING SICK Allergies Coded Allergies: Penicillins (Verified Allergy, Mild, UNKNOWN CHILDHOOD REACTION, 04/14/19) HAS BEEN RECEIVING ZOSYN FOR AN EXTENDED INTERVAL WITH NO ISSUES; THEREFORE, NO LONGER A PCN ALLERGY CONCERN 04/14/19 GME ATTESTATION GME ATTESTATION My faculty preceptor for this patient encounter was physically present during the encounter and was fully available. All aspects of the patient interview, examination, medical decision making process, and medical care plan development were reviewed and approved by the faculty preceptor. The faculty preceptor is aware and concurs with the plan as stated in the body of this note and will attest to such by his/her cosignature. ATTENDING NOTE Time of service 620am is a 50 yr old w a hx of IDDM, PVD s/p L AKA, DVT/PE, HTN, GERD, asthma, DLP & obesity who presented w c/o n/v/d and poor appetite likely 2/2 C OVID 19. He will be admitted for management of starvation ketosis 2/2 vomiting, under observation, pending resolution of the vomiting. Rest per 's H&P SULEIMAN GONZALEZ D.O. Jan 30, 2021 06:47 EMELY RODRÍGUEZ MD Jan 30, 2021 06:53
[2021-01-30] MEDS ORDERED: SIMETHICONE 80MG CHEW TAB PO PRN (07:00)
[2021-01-30 08:06] LABS: INR 0.99; PROTHROMBIN TIME 13.3 SECONDS (12.5-14.3)
[2021-01-30 08:07] LABS: PARTIAL THROMBOPLASTIN TIME 30.9 SECONDS (24.2-38.5)
[2021-01-30 08:10] LABS: D-DIMER QUANT 665.86 ng/ml (<500)
--- NOTE | 2021-01-30 08:13 | REP ---
INDICATION: coronavirus 19 positive abd pain r/o pneumonia. COMPARISON: 08/27/2018 PA and lateral chest. TECHNIQUE: Portable AP chest with the patient sitting. FINDINGS: The cardiac size appears enlarged, particularly on the right, however, there is magnification from portable positioning. There are no focal infiltrates. There are no pleural effusions. However, there is diffuse bilateral interstitial coarsening as an interval change. The doug, mediastinum, and skeletal structures are unremarkable. IMPRESSION: Bilateral mild interstitial coarsening as an interval change, nonspecific, interstitial infiltrates versus vascular engorgement. Cardiac size is enlarged, particularly on the right, however, there is magnification from portable positioning. <Electronically signed by Sarath Islas > 01/30/21 [id number]
[2021-01-30 08:17] LABS: C REACTIVE PROTEIN QUANTITATIV 3.33 MG/DL (0.00-0.30); FERRITIN 105 NG/ML (26-388); LDH LACTATE DEHYDROGENASE 178 U/L (87-241)
[2021-01-30 08:52] LABS: ERYTHROCYTE SEDIMENTATION RATE 40 mm/hr (0-15)
[2021-01-30] MEDS: FERROUS SULFATE 325MG TAB PO SCH (08:57)
[2021-01-30] MEDS: APIXABAN 2.5 MG TAB (ELIQUIS) PO SCH ×2 (08:58→20:25)
[2021-01-30] MEDS: PANTOPRAZOLE 40MG TAB (PROTONIX) PO SCH ×2 (08:58→20:24)
[2021-01-30] MEDS ORDERED: SERTRALINE 100 MG TAB PO SCH (09:00)
[2021-01-30] MEDS: LEVEMIR (INSULIN DETEMIR) 1 UNITS/0.01ML SC SCH ×2 (09:06→20:24)
[2021-01-30] MEDS: METOPROLOL SUCC (TopROL XL) 100MG *XL* TAB PO SCH (09:06)
[2021-01-30] MEDS: ASPIRIN 81MG ENTERIC TABLET PO SCH (09:07)
[2021-01-30 09:43] LABS: APPEARANCE, URINE CLEAR (CLEAR); BACTERIA, URINE AUTO NEGATIVE (NEGATIVE); BILIRUBIN, URINE AUTO NEGATIVE (NEGATIVE); BLOOD, URINE BLOOD NEGATIVE (NEGATIVE); COLOR, URINE YELLOW (YELLOW); GLUCOSE, URINE (UA) AUTO 3+ mg/dL (NEGATIVE); KETONE, URINE AUTO 2+ mg/dL (NEGATIVE); LEUKOCYTE ESTERASE, URINE AUTO NEGATIVE (NEGATIVE); MUCUS, URINE SMALL (NEGATIVE); NITRITE, URINE AUTO NEGATIVE (NEGATIVE); PROTEIN, URINE AUTO 1+ mg/dL (NEGATIVE); RBC, URINE AUTO 7 /HPF (0-3); SPECIFIC GRAVITY URINE AUTO 1.032 (1.002-1.035); SQUAMOUS EPITHELIAL CELL UR AU 0 /HPF (0-6); WBC, URINE AUTO 1 /HPF (0-3)
[2021-01-30 09:55] VITALS: BP 144/82
[2021-01-30] MEDS: ONDANSETRON 4MG/2ML VIAL IV SCH ×3 (11:01→20:24)
[2021-01-30] MEDS: METOCLOPRAMIDE INJ 10MG/2ML VIAL (J2765 PER 1) IV SCH ×2 (12:02→17:36)
[2021-01-30] MEDS: MEGESTROL ES SUSP 625MG 5ML ORAL SYRINGE PO SCH (13:26)
[2021-01-30 13:29] VITALS: BP 126/72
[2021-01-30 20:00] VITALS: BP 106/66
[2021-01-30] MEDS: ATORVASTATIN 20 MG TAB PO SCH (20:25)
--- NOTE | 2021-01-31 00:03 | ECGEPIP ---
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 Order Number: [id number] Reading MD: Jorge Leonard Measurements Intervals [place] Rate: 84 P: 49 ME: 166 QRS: 3 QRSD: 100 T: 58 QT: 420 QTc: 496 Interpretive Statements Normal sinus rhythm Non specific ST/T abnormality Last tracing on 01/29/21 at 21:38. No remarkable changes. Electronically Signed on 01-31-2021 0:03:15 EDT by Jorge Leonard
[2021-01-31] MEDS: NS 1,000 ML IV SCH ×2 (00:05→07:19)
[2021-01-31] MEDS: METOCLOPRAMIDE INJ 10MG/2ML VIAL (J2765 PER 1) IV SCH ×5 (00:05→23:18)
[2021-01-31] MEDS: HumaLOG INSULIN (NovoLOG) PER UNIT SC SCH ×4 (00:07→17:28)
[2021-01-31] MEDS: ONDANSETRON 4MG/2ML VIAL IV SCH ×4 (03:13→21:10)
[2021-01-31 04:00] VITALS: BP 114/64
[2021-01-31 07:26] LABS: HEMATOCRIT 38.9 % (42.0-52.0); HEMOGLOBIN 12.4 g/dl (13.5-17.5); MEAN CORPUSCULAR HEMOGLOBIN 26.7 pg (27.0-33.0); MEAN CORPUSCULAR HGB CONC 31.9 g/dl (32.0-36.5); MEAN CORPUSCULAR VOLUME 83.7 fl (80.0-96.0); PLATELET COUNT, AUTOMATED 116 10^3/uL (150-450); RED BLOOD COUNT 4.65 10^6/uL (4.30-6.10); WHITE BLOOD COUNT 3.9 10^3/uL (4.0-10.0)
[2021-01-31 07:46] LABS: HEMOGLOBIN A1c 8.1 %
[2021-01-31 07:54] LABS: BLOOD UREA NITROGEN 9 MG/DL (7-18); CALCIUM LEVEL 7.6 MG/DL (8.5-10.1); CARBON DIOXIDE LEVEL 27 MEQ/L (21-32); CHLORIDE LEVEL 109 MEQ/L (98-107); CREATININE FOR GFR 0.53 MG/DL (0.70-1.30); GLOMERULAR FILTRATION RATE > 60.0 (>60); GLUCOSE, FASTING 141 MG/DL (70-100); POTASSIUM SERUM 3.5 MEQ/L (3.5-5.1); SODIUM LEVEL 140 MEQ/L (136-145)
[2021-01-31] MEDS: MEGESTROL ES SUSP 625MG 5ML ORAL SYRINGE PO SCH (08:41)
[2021-01-31] MEDS: PANTOPRAZOLE 40MG TAB (PROTONIX) PO SCH ×2 (08:42→21:11)
[2021-01-31] MEDS: APIXABAN 2.5 MG TAB (ELIQUIS) PO SCH ×2 (08:42→21:11)
[2021-01-31] MEDS: ASPIRIN 81MG ENTERIC TABLET PO SCH (08:42)
[2021-01-31] MEDS: FERROUS SULFATE 325MG TAB PO SCH (08:42)
[2021-01-31] MEDS: METOPROLOL SUCC (TopROL XL) 100MG *XL* TAB PO SCH (08:43)
[2021-01-31] MEDS: LEVEMIR (INSULIN DETEMIR) 1 UNITS/0.01ML SC SCH ×2 (08:43→21:10)
--- NOTE | 2021-01-31 09:03 | IPNPDOC ---
Date Seen The patient was seen on 01/31/21. Progress Note Hospitalist progress note has been dictated. . Please call hyper-type at [phone]. 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 artist VS, I&O, 24H, Fishbone Vital Signs/I&O Vital Signs Date Time Temp Pulse Resp B/P (MAP) Pulse Ox O2 Delivery O2 Flow Rate FiO2 01/31/21 08:43 78 92/55 01/31/21 04:00 98.8 20 95 Room Air I&O- Last 24 Hours up to 6 AM 01/31/21 06:00 Intake Total 4445 ml Output Total 1550 ml Balance 2895 ml Laboratory Data 24H LABS Laboratory Tests 2 01/30/21 09:29: Urine Color YELLOW, Urine Appearance CLEAR, Urine pH 6.0, Urine Specific [place] 1.032, Urine Protein 1+H, Urine Glucose (Auto)(UA) 3+H, Urine Ketones (Auto) 2+H, Urine Blood NEGATIVE, Urine Nitrite NEGATIVE, Urine Bilirubin NEGATIVE, Urine Urobilinogen 4.0H, Urine Leukocyte Esterase (Auto) NEGATIVE, Urine WBC (Auto) 1, Urine RBC (Auto) 7H, Urine Hyaline Casts (Auto) 0, Urine Bacteria (Auto) NEGATIVE, Urine Squamous Epithelial Cells 0, Urine Mucus (Auto) SMALL, Urine Sperm (Auto) 01/30/21 10:34: Bedside Glucose (Misc Panel) 119H 01/30/21 11:55: Bedside Glucose (Misc Panel) 149H 01/30/21 17:28: Bedside Glucose (Misc Panel) 123H 01/30/21 20:19: Bedside Glucose (Misc Panel) 151H 01/31/21 00:02: Bedside Glucose (Misc Panel) 118H 01/31/21 06:07: Bedside Glucose (Misc Panel) 144H 01/31/21 06:49: Nucleated Red Blood Cells % (auto) 0.0, Anion Gap 4L, Glomerular Filtration Rate > 60.0, Estimated Mean Plasma Glucose 186H, Hemoglobin A1c 8.1, Calcium Level 7.6L CBC/BMP Laboratory Tests 01/31/21 06:49 ALEXANDRA MALDONADO MD Jan 31, 2021 09:03
--- NOTE | 2021-01-31 10:09 | IPN ---
PROGRESS NOTE DATE: 01/31/2021 SUBJECTIVE: The patient is seen and examined at the bedside. Chart has been reviewed. He continues to have decrease in appetite but would like to advance his diet from liquid to solid diet this morning. No shortness of breath, chest pain, pressure, tightness, lightheadedness. He does complain of slight dizziness, no diarrhea. The patient has slight loss of taste. No dysuria, urgency, frequency, cough, fever or chills. OBJECTIVE: VITAL SIGNS: Temperature 98.8, pulse 70, respiratory rate 20, blood pressure 114/64, 95% on room air. GENERAL: Awake, alert, oriented x3, answering questions appropriately. HEENT: no icterus or jaundice, pallor. No use of respiratory accessory muscles. No conversational dyspnea. The patient appears disheveled, poor dentition, dry mucous membranes with chapped lips. No JVD. LUNGS: Clear to auscultation, no wheezes, rhonchi or rales. HEART: S1, S2, sinus rhythm. ABDOMEN: Soft, nontender, non-distended, positive bowel sounds. EXTREMITIES: Left AKA, no cyanosis, clubbing or any pitting edema. LABORATORY DATA: White count 3.9, hemoglobin 12, hematocrit 38, platelet count 116. Sodium 140, potassium 3.5, chloride 109, bicarb 27, BUN 9, creatinine 0.53, glucose 141, A1C 8.1, calcium 7.6. LDH was 178. D-dimer 665, fibrinogen 512. Ferritin 105. CRP 3.33. Procalcitonin is pending. Chest x-ray 01/30/2021: Bilateral worsening nonspecific infiltrates versus vascular engorgement, enlarged cardiac size. 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 IMPRESSION: 1. Coronavirus-19 infection: The patient is not hypoxic, has no impressive inflammatory markers, on admission does not require Remdesivir, IV Decadron at this time. He is not requiring supplemental oxygen. 2. Starvation ketoacidosis with significant lactic acidosis responded to IV fluid hydration. The patient has tolerated his liquid diet and would like to try solid diet today. The patient has been given 2 gm sodium consistent carbohydrate diet. 3. Type 2 diabetes, on sliding scale, consistent carbohydrate diet. 4. History of DVT/PE, on chronic Eliquis. 5. Hypertension, on Metoprolol with holding parameters for systolic pressure less than 110. 6. Peripheral vascular disease, on Aspirin and statin. 7. Left AKA. 8. Pancytopenia, currently stable, no acute indication for RBC or platelet transfusion, no signs of any active bleeding. MTDD
[2021-01-31 12:01] VITALS: BP 102/59
[2021-01-31 20:00] VITALS: BP 107/68
[2021-01-31] MEDS ORDERED: HumaLOG INSULIN (NovoLOG) PER UNIT SC SCH (21:00)
[2021-01-31] MEDS: ATORVASTATIN 20 MG TAB PO SCH (21:11)
[2021-02-01] MEDS: ONDANSETRON 4MG/2ML VIAL IV SCH ×2 (03:40→08:59)
[2021-02-01 04:00] VITALS: BP 119/71
[2021-02-01] MEDS: METOCLOPRAMIDE INJ 10MG/2ML VIAL (J2765 PER 1) IV SCH ×2 (05:52→12:00)
[2021-02-01 06:32] LABS: HEMATOCRIT 36.6 % (42.0-52.0); HEMOGLOBIN 11.9 g/dl (13.5-17.5); MEAN CORPUSCULAR HEMOGLOBIN 26.6 pg (27.0-33.0); MEAN CORPUSCULAR HGB CONC 32.5 g/dl (32.0-36.5); MEAN CORPUSCULAR VOLUME 81.9 fl (80.0-96.0); PLATELET COUNT, AUTOMATED 118 10^3/uL (150-450); RED BLOOD COUNT 4.47 10^6/uL (4.30-6.10); WHITE BLOOD COUNT 4.5 10^3/uL (4.0-10.0)
[2021-02-01 06:53] LABS: BLOOD UREA NITROGEN 8 MG/DL (7-18); CARBON DIOXIDE LEVEL 25 MEQ/L (21-32); CHLORIDE LEVEL 111 MEQ/L (98-107); CREATININE FOR GFR 0.53 MG/DL (0.70-1.30); GLOMERULAR FILTRATION RATE > 60.0 (>60); GLUCOSE, FASTING 161 MG/DL (70-100); POTASSIUM SERUM 3.8 MEQ/L (3.5-5.1); SODIUM LEVEL 142 MEQ/L (136-145)
[2021-02-01 08:08] VITALS: BP 123/72
[2021-02-01] MEDS: APIXABAN 2.5 MG TAB (ELIQUIS) PO SCH (08:58)
[2021-02-01] MEDS: LEVEMIR (INSULIN DETEMIR) 1 UNITS/0.01ML SC SCH (08:58)
[2021-02-01] MEDS: PANTOPRAZOLE 40MG TAB (PROTONIX) PO SCH (08:58)
[2021-02-01] MEDS: HumaLOG INSULIN (NovoLOG) PER UNIT SC SCH ×2 (08:58→12:54)
[2021-02-01] MEDS: FERROUS SULFATE 325MG TAB PO SCH (08:59)
[2021-02-01] MEDS: ASPIRIN 81MG ENTERIC TABLET PO SCH (08:59)
[2021-02-01 09:00] VITALS: BP 123/72
[2021-02-01] MEDS: METOPROLOL SUCC (TopROL XL) 100MG *XL* TAB PO SCH (09:00)
[2021-02-01] MEDS: MEGESTROL ES SUSP 625MG 5ML ORAL SYRINGE PO SCH (09:00)
--- NOTE | 2021-02-02 16:48 | IPNPDOC ---
Subjective Date Seen The patient was seen on 02/01/21. Subjective Chief Complaint/HPI Did not have any complaints this morning. He has tolerated oral diet, no further vomiting. He does not have any respiraotry symptoms. No oxygen requirement. he has h/o CARLOS so his oxygen tends to drop when he sleeps so was put on 2 l at night. Objective Physical Examination General Exam: Positive: Alert, Cooperative, No Acute Distress Eye Exam: Positive: PERRLA, Conjunctiva & lids normal, EOMI; Negative: Sclera icteric ENT Exam: Positive: Atraumatic, Mucous membr. moist/pink, Pharynx Normal Neck Exam: Positive: Supple; Negative: JVD, thyromegaly Chest Exam: Positive: Clear to auscultation, Normal air movement Heart Exam: Positive: Rate Normal, Regular Rhythm, Normal S1, Normal S2; Negative: Murmurs, Rubs Abdomen Exam: Positive: Normal bowel sounds, Soft; Negative: Tenderness, Hepatospenomegaly Assessment /Plan Assessment This is a 50-year-old male with history of diabetes, hypertension, peripheral vascular disease s/p left AKA, , PE/DVT provoked after left AKA, depression, anxiety, asthma, chronic wounds right tibia and left hand, admitted due to intractable nausea, vomiting, decreased oral intake, with starvation ketoacidosis secondary to Coronavirus-19 infection. Coronavirus-19 infection: Not Hypoxic, has no impressive inflammatory markers. No respiratory symptoms. Starvation ketoacidosis now resolved. Type 2 diabetes, on sliding scale lispro and levemir will resume home meds of trulicity, metformin, gargine insulin when discharged. consistent carbohydrate diet. History of DVT/PE, was positive for Lupus anticoagulant. on Eliquis. Hypertension, on Metoprolol Peripheral vascular disease s/p left AKA on Aspirin and statin. Thrombocytopenia stable CARLOS untreated. GERD PPI. Plan/VTE VTE Prophylaxis Ordered?: Yes VS, I&O, 24H, Fishbone Vital Signs/I&O Vital Signs Date Time Temp Pulse Resp B/P (MAP) Pulse Ox O2 Delivery O2 Flow Rate FiO2 02/01/21 09:00 87 123/72 02/01/21 08:08 98.7 17 93 Room Air 02/01/21 04:00 2.0 I&O- Last 24 Hours up to 6 AM 02/01/21 06:00 Intake Total 2460 ml Output Total 2450 ml Balance 10 ml Laboratory Data 24H LABS Laboratory Tests 2 01/31/21 11:51: Bedside Glucose (Misc Panel) 278H 01/31/21 16:35: Bedside Glucose (Misc Panel) 242H 01/31/21 21:07: Bedside Glucose (Misc Panel) 185H 02/01/21 05:48: Nucleated Red Blood Cells % (auto) 0.0, Anion Gap 6L, Glomerular Filtration Rate > 60.0, Calcium Level 8.0L CBC/BMP Laboratory Tests 02/01/21 05:48 JOANNE MOJICA MD Feb 01, 2021 10:18
== END 2021-02-01 15:13 | disposition home health service (06) ==
LOC: M ED 03:59 → M ED INP 04:00 → ENRESERV 08:32 → M 4MAIN 09:53
PROVIDERS: ADMIT Internal Medicine; ATTEND General Practice
DX: T73.0XXA Starvation, initial encounter (principal); U07.1 COVID-19; E87.2 Acidosis; E11.10 Type 2 diabetes mellitus with ketoacidosis without coma; I73.9 Peripheral vascular disease, unspecified; D61.818 Other pancytopenia; J45.20 Mild intermittent asthma, uncomplicated; E66.9 Obesity, unspecified; Z89.612 Acquired absence of left leg above knee; I10 Essential (primary) hypertension; K21.9 Gastro-esophageal reflux disease without esophagitis; Z79.84 Long term (current) use of oral hypoglycemic drugs; Z79.4 Long term (current) use of insulin; Z79.01 Long term (current) use of anticoagulants; Z86.718 Personal history of other venous thrombosis and embolism; Z79.82 Long term (current) use of aspirin; F32.9 Major depressive disorder, single episode, unspecified; F41.9 Anxiety disorder, unspecified
CPT/HCPCS: 36415; 36600; 71045; 80048; 80053; 81001; 82010; 82728; 82803; 83036; 83615; 84145; 85025; 85027; 85379; 85384; 85610; 85652; 85730; 86140; 93005; 96361; 96374; 96376; 99285; J2405; J2765; Q0162

== ENCOUNTER → 2021-03-04 | Outpatient (REF) | payer OTHER ==
[~2021-03-04] MED LIST changes: +ADME100I SC; +ATOR40TA75 PO; +DOCU-160 PO; +DULA3PEN SQ; +ECOT81TA5 PO; +INSU100I28 SC; +MED REC COMMENT; +METO1TAB33 PO; +PANT-23 PO; -STOO2CAP PO; +VITA50005 PO; +ZOLO100T PO
== END ==
LOC: M LAB REF 15:46
PROVIDERS: ATTEND Surgery
DX: S61.412D Laceration without foreign body of left hand, subsequent encounter (principal); X58.XXXD Exposure to other specified factors, subsequent encounter; Y92.9 Unspecified place or not applicable

== ENCOUNTER → 2021-03-09 | Outpatient (REF) | payer OTHER ==
[2021-03-09 12:53] LABS: BASO % 0.6 % (0.0-1.0); EOS # 0.1 10^3/uL (0.0-0.5); EOS % 2.3 % (0.0-3.0); HEMATOCRIT 41.2 % (42.0-52.0); HEMOGLOBIN 13.5 g/dl (13.5-17.5); LYMPH # 1.4 10^3/uL (1.5-5.0); LYMPH % 27.3 % (24.0-44.0); MEAN CORPUSCULAR HEMOGLOBIN 26.9 pg (27.0-33.0); MEAN CORPUSCULAR HGB CONC 32.8 g/dl (32.0-36.5); MEAN CORPUSCULAR VOLUME 82.2 fl (80.0-96.0); MONO # 0.5 10^3/uL (0.0-0.8); MONO % 8.8 % (2.0-8.0); NEUTROPHILS # 3.2 10^3/uL (1.5-8.5); NEUTROPHILS % 60.6 % (36.0-66.0); PLATELET COUNT, AUTOMATED 127 10^3/uL (150-450); RED BLOOD COUNT 5.01 10^6/uL (4.30-6.10); WHITE BLOOD COUNT 5.2 10^3/uL (4.0-10.0)
[2021-03-09 13:29] LABS: ALBUMIN 3.6 GM/DL (3.2-5.2); ALT/SGPT 18 U/L (12-78); BILIRUBIN,TOTAL 0.7 MG/DL (0.2-1.0); BLOOD UREA NITROGEN 11 MG/DL (7-18); CARBON DIOXIDE LEVEL 27 MEQ/L (21-32); CHLORIDE LEVEL 106 MEQ/L (98-107); CHOLESTEROL LEVEL 174 MG/DL (<200); CHOLESTEROL RISK RATIO 4.046 (<5); CREATININE FOR GFR 0.62 MG/DL (0.70-1.30); GLOMERULAR FILTRATION RATE > 60.0 (>60); GLUCOSE, FASTING 254 MG/DL (70-100); HDL CHOLESTEROL 43 MG/DL (>40); LDL CHOLESTEROL 100 MG/DL (<100); NON-HDL-C 131 MG/DL; POTASSIUM SERUM 4.7 MEQ/L (3.5-5.1); SODIUM LEVEL 138 MEQ/L (136-145); TOTAL PROTEIN 7.4 GM/DL (6.4-8.2); TRIGLYCERIDES LEVEL 153 MG/DL (<150)
== END ==
LOC: M LAB REF 12:28
PROVIDERS: ATTEND Nurse Practitioner Family
DX: I10 Essential (primary) hypertension (principal); E11.8 Type 2 diabetes mellitus with unspecified complications; I73.9 Peripheral vascular disease, unspecified

== ENCOUNTER → 2021-03-23 | Outpatient (CLI) | payer OTHER ==
[~2021-03-23] MED LIST changes: +GABA-283 PO; -GABA-845 PO
--- NOTE | 2021-03-24 03:47 | REP ---
INDICATION: LACERATION OF LEFT HAND WITHOUT FB COMPARISON: None. TECHNIQUE: AP, lateral, bilateral oblique views left hand. FINDINGS: Osseous structures are intact and there is no evidence for acute fracture/injury. Lateral view suggests soft tissue swelling overlying the metacarpophalangeal region. No obvious subcutaneous emphysema or foreign body identified. Moderate arthritic changes through the wrist and interphalangeal joints noted. IMPRESSION: No obvious injury by radiographic evaluation.. Moderate degenerative changes suggested <Electronically signed by Esau Houston > 03/24/21 2240
== END ==
LOC: M RAD 12:59
PROVIDERS: ATTEND Surgery
DX: S61.412D Laceration without foreign body of left hand, subsequent encounter (principal)

== ENCOUNTER → 2021-03-23 | Outpatient (CLI) | payer OTHER ==
[2021-03-23 14:59] LABS: BLOOD UREA NITROGEN 9 MG/DL (7-18); CREATININE FOR GFR 0.72 MG/DL (0.70-1.30); GLOMERULAR FILTRATION RATE > 60.0 (>60)
== END ==
LOC: M LAB 13:11
PROVIDERS: ATTEND Physician Assistant
DX: Q24.8 Other specified congenital malformations of heart (principal)

== ENCOUNTER → 2021-03-23 | Outpatient (CLI) | payer OTHER ==
[2021-03-23 15:12] LABS: CREATININE, URINE 35.5 MG/DL; MALB URINE SIEMENS < 5.0 MG/L
== END ==
LOC: M LAB 13:03
PROVIDERS: ATTEND Nurse Practitioner Family
DX: E11.9 Type 2 diabetes mellitus without complications (principal)

== ENCOUNTER → 2021-04-01 | Outpatient (CLI) | payer OTHER ==
[~2021-04-01] MED LIST changes: +ISOVUE-370 76% 100ML VIAL As Ordered ONE
--- NOTE | 2021-04-01 08:37 | REP ---
INDICATION: PERICARDIAL CYST COMPARISON: 01/14/2020 . TECHNIQUE: Axial contrast enhanced images from the thoracic inlet to the upper abdomen with coronal and sagittal reformations using 75 ml Isovue 370 intravenous contrast material. This CT examination was performed using the following dose reduction techniques: Automated exposure control, adjustment of mA and/or kv according to the patient's size, and use of iterative reconstruction technique. FINDINGS: The bilateral lung williamson are clear and essentially well aerated/symmetric. No focal consolidation, suspicious nodule or mass lesion. No effusion. No pneumothorax. Tracheobronchial tree is patent. No adenopathy. Mediastinum demonstrates normal thoracic aorta, pulmonary vasculature, and heart by CT evaluation. Stable benign right sided pericardial cyst measures 4.9 x 3.1 cm maximal diameter and remains stable. Moderate hiatal hernia at the gastroesophageal junction. Surrounding musculoskeletal structures without acute osseous abnormality. Upper abdomen demonstrates normal bilateral adrenal glands. IMPRESSION: Stable benign pericardial cyst again noted. No acute mediastinal or pleuroparenchymal process. Moderate hiatal hernia. <Electronically signed by Esau Houston > 04/01/21 0844
== END ==
LOC: M RAD 06:47
PROVIDERS: ATTEND Thoracic Surgery (Cardiothoracic Vascular Surgery)
DX: Q24.8 Other specified congenital malformations of heart (principal); K44.9 Diaphragmatic hernia without obstruction or gangrene
CPT/HCPCS: 71260; Q9967

== ENCOUNTER 2021-06-07 09:42 | Outpatient (RCR) | payer OTHER ==
[~2021-06-07 09:42] MED LIST changes: +ERGO500029 PO; -ISOVUE-370 76% 100ML VIAL As Ordered ONE; -VITA50005 PO
== END 2021-06-11 ==
LOC: M OT 09:42
PROVIDERS: ATTEND Surgery
DX: S61.412D Laceration without foreign body of left hand, subsequent encounter (principal); X58.XXXD Exposure to other specified factors, subsequent encounter; Y92.9 Unspecified place or not applicable; Y93.9 Activity, unspecified; Y99.9 Unspecified external cause status

== ENCOUNTER → 2021-06-28 | Outpatient (REF) | payer OTHER ==
[2021-06-28 17:00] LABS: BASO % 0.5 % (0.0-1.0); EOS # 0.2 10^3/uL (0.0-0.5); EOS % 2.6 % (0.0-3.0); HEMATOCRIT 46.6 % (42.0-52.0); HEMOGLOBIN 14.8 g/dl (13.5-17.5); LYMPH # 1.4 10^3/uL (1.5-5.0); LYMPH % 23.2 % (24.0-44.0); MEAN CORPUSCULAR HEMOGLOBIN 26.3 pg (27.0-33.0); MEAN CORPUSCULAR HGB CONC 31.8 g/dl (32.0-36.5); MEAN CORPUSCULAR VOLUME 82.9 fl (80.0-96.0); MONO # 0.4 10^3/uL (0.0-0.8); MONO % 6.9 % (2.0-8.0); NEUTROPHILS # 4.1 10^3/uL (1.5-8.5); NEUTROPHILS % 66.8 % (36.0-66.0); PLATELET COUNT, AUTOMATED 147 10^3/uL (150-450); RED BLOOD COUNT 5.62 10^6/uL (4.30-6.10); WHITE BLOOD COUNT 6.1 10^3/uL (4.0-10.0)
[2021-06-28 17:29] LABS: ALBUMIN 3.7 GM/DL (3.2-5.2); ALT/SGPT 26 U/L (12-78); BILIRUBIN,TOTAL 0.8 MG/DL (0.2-1.0); BLOOD UREA NITROGEN 14 MG/DL (7-18); CALCIUM LEVEL 9.3 MG/DL (8.5-10.1); CARBON DIOXIDE LEVEL 28 MEQ/L (21-32); CHLORIDE LEVEL 105 MEQ/L (98-107); CHOLESTEROL LEVEL 184 MG/DL (<200); CHOLESTEROL RISK RATIO 4.972 (<5); CREATININE FOR GFR 0.63 MG/DL (0.70-1.30); GLOMERULAR FILTRATION RATE > 60.0 (>56); GLUCOSE, FASTING 175 MG/DL (70-100); HDL CHOLESTEROL 37 MG/DL (>40); LDL CHOLESTEROL 108 MG/DL (<100); NON-HDL-C 147 MG/DL; POTASSIUM SERUM 4.7 MEQ/L (3.5-5.1); SODIUM LEVEL 137 MEQ/L (136-145); TOTAL PROTEIN 7.4 GM/DL (6.4-8.2); TRIGLYCERIDES LEVEL 193 MG/DL (<150)
[2021-06-28 17:37] LABS: TOTAL 25(OH) VITAMIN D 26.2 NG/ML (30.0-100.0)
== END ==
LOC: M LAB REF 16:34
PROVIDERS: ATTEND Nurse Practitioner Family
DX: I73.9 Peripheral vascular disease, unspecified (principal); I10 Essential (primary) hypertension; E55.9 Vitamin D deficiency, unspecified

== ENCOUNTER → 2021-07-12 | Outpatient (RCR) | payer OTHER | LOC: M OT 06-13 13:18 | PROVIDERS: ATTEND Surgery | DX: S61.421D Laceration with foreign body of right hand, subsequent encounter (principal); X58.XXXD Exposure to other specified factors, subsequent encounter; Y92.9 Unspecified place or not applicable; Y93.9 Activity, unspecified; Y99.9 Unspecified external cause status ==

== ENCOUNTER → 2021-11-16 | Outpatient (CLI) | payer OTHER ==
[~2021-11-16] MED LIST changes: +CLIN-250 PO; -CLIN300C6 PO
[2021-11-16 11:16] LABS: BLOOD UREA NITROGEN 16 MG/DL (7-18); CALCIUM LEVEL 9.6 MG/DL (8.5-10.1); CARBON DIOXIDE LEVEL 33 MEQ/L (21-32); CHLORIDE LEVEL 103 MEQ/L (98-107); CHOLESTEROL LEVEL 180 MG/DL (<200); CREATININE FOR GFR 0.87 MG/DL (0.70-1.30); GLOMERULAR FILTRATION RATE > 60.0 (>56); GLUCOSE, FASTING 135 MG/DL (70-100); HDL CHOLESTEROL 36 MG/DL (>40); LDL CHOLESTEROL 119 MG/DL (<100); NON-HDL-C 144 MG/DL; POTASSIUM SERUM 4.7 MEQ/L (3.5-5.1); SODIUM LEVEL 139 MEQ/L (136-145); TRIGLYCERIDES LEVEL 126 MG/DL (<150)
[2021-11-16 11:36] LABS: TOTAL 25(OH) VITAMIN D 54.4 NG/ML (30.0-100.0)
== END ==
LOC: M LAB 09:45
PROVIDERS: ATTEND Internal Medicine Cardiovascular Disease
DX: E78.2 Mixed hyperlipidemia (principal); I10 Essential (primary) hypertension

== ENCOUNTER → 2023-01-01 | Outpatient (REF) | payer OTHER ==
[~2023-01-01] MED LIST changes: +BASA100I SC; +METO1TAB7 PO
== END ==
LOC: M SFHCWOUN 16:00
PROVIDERS: ATTEND Physician Assistant
DX: S61.412A Laceration without foreign body of left hand, initial encounter (principal); W18.30XA Fall on same level, unspecified, initial encounter; Y92.009 Unspecified place in unspecified non-institutional (private) residence as the place of occurrence of the external cause

== ENCOUNTER → 2023-02-22 | Outpatient (CLI) | payer OTHER | LOC: M SOG 09:11 | PROVIDERS: ATTEND Physician Assistant | DX: M79.645 Pain in left finger(s) (principal); M79.89 Other specified soft tissue disorders; M89.8X4 Other specified disorders of bone, hand ==

== ENCOUNTER → 2023-02-28 | Outpatient (REF) | payer OTHER ==
[2023-02-28 18:18] LABS: BASO % 0.6 % (0.0-1.0); EOS # 0.2 10^3/uL (0.0-0.5); EOS % 2.2 % (0.0-3.0); HEMATOCRIT 44.9 % (42.0-52.0); HEMOGLOBIN 14.2 g/dl (13.5-17.5); LYMPH # 1.6 10^3/uL (1.5-5.0); MEAN CORPUSCULAR HEMOGLOBIN 26.1 pg (27.0-33.0); MEAN CORPUSCULAR HGB CONC 31.6 g/dl (32.0-36.5); MEAN CORPUSCULAR VOLUME 82.4 fl (80.0-96.0); MONO # 0.4 10^3/uL (0.0-0.8); MONO % 5.7 % (2.0-8.0); NEUTROPHILS # 4.6 10^3/uL (1.5-8.5); NEUTROPHILS % 67.4 % (36.0-66.0); PLATELET COUNT, AUTOMATED 136 10^3/uL (150-450); RED BLOOD COUNT 5.45 10^6/uL (4.30-6.10); WHITE BLOOD COUNT 6.8 10^3/uL (4.0-10.0)
[2023-02-28 19:17] LABS: ALBUMIN 3.5 G/DL (3.2-5.2); ALKALINE PHOSPHATASE 120 U/L (46-116); ALT/SGPT 16 U/L (7.0-40); AST/SGOT 10 U/L (<34); BILIRUBIN,TOTAL 0.5 MG/DL (0.3-1.2); BLOOD UREA NITROGEN 14 MG/DL (9-23); CALCIUM LEVEL 9.2 MG/DL (8.5-10.1); CARBON DIOXIDE LEVEL 26 MMOL/L (20-31); CHLORIDE LEVEL 97 MMOL/L (98-107); CHOLESTEROL LEVEL 204 MG/DL (<200); CHOLESTEROL RISK RATIO 5.38 (<5); CREATININE FOR GFR 0.59 MG/DL (0.70-1.30); GLOMERULAR FILTRATION RATE > 60.0 (>56); GLUCOSE, FASTING 479 MG/DL (60-100); HDL CHOLESTEROL 37.9 MG/DL (>40); LDL CHOLESTEROL 108.3 MG/DL (<100); NON-HDL-C 166.1 MG/DL; POTASSIUM SERUM 5.1 MMOL/L (3.5-5.1); SODIUM LEVEL 131 MMOL/L (136-145); TOTAL 25(OH) VITAMIN D 24.4 NG/ML (20.0-100.0); TOTAL PROTEIN 7.6 G/DL (5.7-8.2); TRIGLYCERIDES LEVEL 289 MG/DL (<150)
[2023-02-28 19:22] LABS: HEMOGLOBIN A1c > 14.0 % (4.0-6.0)
== END ==
LOC: M LAB REF 16:22
PROVIDERS: ATTEND Nurse Practitioner Family
DX: Z13.228 Encounter for screening for other metabolic disorders (principal)

== ENCOUNTER → 2023-12-20 | Outpatient (CLI) | payer OTHER ==
[~2023-12-20] MED LIST changes: +ALBU8.5H INH; +CIPR-249 PO; -GABA-283 PO; +GABA-284 PO; +NITR0.4S14 PO
== END ==
LOC: M SOG 15:19
PROVIDERS: ATTEND Physician Assistant
DX: M86.142 Other acute osteomyelitis, left hand (principal); M79.89 Other specified soft tissue disorders

== ENCOUNTER → 2024-01-02 | Outpatient (REF) | payer OTHER ==
[2024-01-02 13:10] LABS: ALBUMIN 3.4 G/DL (3.2-5.2); ALKALINE PHOSPHATASE 104 U/L (46-116); ALT/SGPT 16 U/L (7.0-40); AST/SGOT 11 U/L (<34); BILIRUBIN,TOTAL 0.4 MG/DL (0.3-1.2); BLOOD UREA NITROGEN 23 MG/DL (9-23); CALCIUM LEVEL 9.7 MG/DL (8.5-10.1); CARBON DIOXIDE LEVEL 31 MMOL/L (20-31); CHLORIDE LEVEL 103 MMOL/L (98-107); CREATININE FOR GFR 0.75 MG/DL (0.70-1.30); GLOMERULAR FILTRATION RATE > 60.0 (>56); GLUCOSE, FASTING 174 MG/DL (60-100); POTASSIUM SERUM 4.9 MMOL/L (3.5-5.1); SODIUM LEVEL 138 MMOL/L (136-145); TOTAL PROTEIN 7.1 G/DL (5.7-8.2)
== END ==
LOC: M LAB REF 12:18
PROVIDERS: ATTEND Nurse Practitioner Family
DX: E11.65 Type 2 diabetes mellitus with hyperglycemia (principal)

== ENCOUNTER → 2024-09-09 | Outpatient (REF) | payer OTHER ==
[~2024-09-09] MED LIST changes: +GABA-1172 PO; -GABA-282 PO
[2024-09-09 17:55] LABS: CHOLESTEROL RISK RATIO 4.53 (<5); HDL CHOLESTEROL 31.3 MG/DL (>40); LDL CHOLESTEROL 68.1 MG/DL (<100); MAGNESIUM LEVEL 1.6 MG/DL (1.8-2.4); NON-HDL-C 110.7 MG/DL; THYROID STIMULATING HORMONE 2.954 uIU/ML (0.55-4.78)
== END ==
LOC: M LAB REF 17:05
PROVIDERS: ATTEND Nurse Practitioner Family
DX: E55.9 Vitamin D deficiency, unspecified (principal); E66.3 Overweight

== ENCOUNTER 2025-03-30 11:16 | Emergency (ER) | payer OTHER ==
[~2025-03-30] VITALS: Ht 193 cm; Wt 119.3 kg
[2025-03-30 11:48] VITALS: TEMP 96.4
[2025-03-30 13:13] LABS: VENOUS BASE EXCESS -3.3 (-2.0-2.0); VENOUS HCO3 22.4 MMOL/L (23.0-27.0); VENOUS PH 7.335 UNITS (7.330-7.430); VENOUS STANDARD HCO3 21.6 MMOL/L; VENOUS TOTAL CO2 23.7 MMOL/L (24.0-28.0)
[2025-03-30 13:23] LABS: BASO % 0.4 % (0.0-1.0); EOS # 0.1 10^3/uL (0.0-0.5); EOS % 1.7 % (0.0-3.0); HEMATOCRIT 38.8 % (42.0-52.0); HEMOGLOBIN 11.9 g/dl (13.5-17.5); LYMPH % 13.7 % (24.0-44.0); MEAN CORPUSCULAR HEMOGLOBIN 24.8 pg (27.0-33.0); MEAN CORPUSCULAR HGB CONC 30.7 g/dl (32.0-36.5); MONO # 0.5 10^3/uL (0.0-0.8); MONO % 6.4 % (2.0-8.0); NEUTROPHILS # 5.4 10^3/uL (1.5-8.5); NEUTROPHILS % 77.4 % (36.0-66.0); PLATELET COUNT, AUTOMATED 173 10^3/uL (150-450); RED BLOOD COUNT 4.79 10^6/uL (4.30-6.10)
[2025-03-30 13:50] LABS: ALBUMIN 3.1 G/DL (3.2-5.2); ALKALINE PHOSPHATASE 88 U/L (40-129); ALT/SGPT 17 U/L (7.0-40); AST/SGOT 15 U/L (<34); BILIRUBIN,DIRECT 0.2 MG/DL (<0.4); BILIRUBIN,TOTAL 0.5 MG/DL (0.3-1.2); BLOOD UREA NITROGEN 16 MG/DL (9-23); CALCIUM LEVEL 8.7 MG/DL (8.5-10.1); CARBON DIOXIDE LEVEL 25 MMOL/L (20-31); CHLORIDE LEVEL 106 MMOL/L (98-107); GLOMERULAR FILTRATION RATE > 90.0 (>56); GLUCOSE, FASTING 296 MG/DL (60-100); POTASSIUM SERUM 4.7 MMOL/L (3.5-5.1); SODIUM LEVEL 140 MMOL/L (136-145); TOTAL PROTEIN 8.2 G/DL (5.7-8.2)
[2025-03-30 13:53] LABS: THYROID STIMULATING HORMONE 2.946 uIU/ML (0.55-4.78)
[2025-03-30 14:02] LABS: OSMOLALITY SERUM 314 MOSM/KG (275-295)
[2025-03-30 16:00] VITALS: BP 164/75; O2SAT 94
== END 2025-03-30 17:22 | disposition left against medical advice (07) ==
LOC: M ED 11:16 → EDBD 11:16 → M ED 17:22
DX: E11.65 Type 2 diabetes mellitus with hyperglycemia (principal); Z53.9 Procedure and treatment not carried out, unspecified reason; I10 Essential (primary) hypertension; E78.5 Hyperlipidemia, unspecified; F20.9 Schizophrenia, unspecified; Z86.711 Personal history of pulmonary embolism; D68.62 Lupus anticoagulant syndrome; Z87.19 Personal history of other diseases of the digestive system; Z79.82 Long term (current) use of aspirin; Z79.4 Long term (current) use of insulin; Z79.01 Long term (current) use of anticoagulants; Z79.899 Other long term (current) drug therapy; Z88.0 Allergy status to penicillin

== ENCOUNTER → 2025-05-25 | Outpatient (CLI) | payer OTHER ==
[2025-05-25 11:57] LABS: BASO # 0.0 10^3/uL (0.0-0.2); BASO % 0.3 % (0.0-1.0); EOS # 0.2 10^3/uL (0.0-0.5); EOS % 2.0 % (0.0-3.0); LYMPH # 1.8 10^3/uL (1.5-5.0); LYMPH % 23.9 % (24.0-44.0); MONO # 0.6 10^3/uL (0.0-0.8); MONO % 7.8 % (2.0-8.0); NEUTROPHILS # 5.0 10^3/uL (1.5-8.5); NEUTROPHILS % 65.6 % (36.0-66.0); PLATELET COUNT, AUTOMATED 158 10^3/uL (150-450)
[2025-05-25 12:20] LABS: ALT/SGPT 17.0 U/L (7.0-40); AST/SGOT 15.0 U/L (<34); CALCIUM LEVEL 8.9 MG/DL (8.5-10.1); CARBON DIOXIDE LEVEL 32.0 MMOL/L (20-31); CHLORIDE LEVEL 102.0 MMOL/L (98-107); CHOLESTEROL LEVEL 95.0 MG/DL (<200); CHOLESTEROL RISK RATIO 2.99 (<5); CREATININE FOR GFR 1.16 MG/DL (0.70-1.30); GLOMERULAR FILTRATION RATE 74.9 (>56); LDL CHOLESTEROL 44.1 MG/DL (<100); NON-HDL-C 63.3 MG/DL; POTASSIUM SERUM 4.9 MMOL/L (3.5-5.1); SODIUM LEVEL 142.0 MMOL/L (136-145); TRIGLYCERIDES LEVEL 96.0 MG/DL (<150)
== END ==
LOC: M LAB 10:48
PROVIDERS: ATTEND Registered Nurse
DX: I10 Essential (primary) hypertension (principal); E78.2 Mixed hyperlipidemia

== ENCOUNTER → 2025-06-19 | Outpatient (CLI) | payer OTHER ==
[~2025-06-19] MED LIST changes: +ISOVUE-370 76% 100 ML VIAL As Ordered ONE
== END ==
LOC: M RAD 10:27
PROVIDERS: ATTEND Registered Nurse
DX: I31.8 Other specified diseases of pericardium (principal); I77.810 Thoracic aortic ectasia
CPT/HCPCS: 71260; Q9967